=== PATIENT | male | born 1940 | race Caucasian/White ===

== ENCOUNTER → 2018-03-02 15:00 | Outpatient (CLI) | payer MEDICARE, SELFPAY ==
[2018-03-02 17:36] LABS: Hematocrit 40.7 % (40-54); Mean Corp Hgb Conc 34.4 g/gl (32-36); Mean Corpuscular Hgb 31.7 pg (27.0-32.0); Mean Corpuscular Volume 92.1 fL (80-94); Mean Platelet Vol. 9.1 fl (6.2-12.0); Platelet Count 231 K/mm3 (150-450); RBC Distribution Width CV 12.7 % (11.6-14.6); RBC Distribution Width SD 41.8 fl (35.1-43.9); Red Blood Count 4.42 M/mm3 (4.6-6.2); White Blood Count 7.5 K/mm3 (4.4-11.0)
[2018-03-02 17:39] LABS: Scan Indicated on CBC? Y/N NO
[2018-03-02 17:51] LABS: Erythrocyte Sedimentation Rate 3 mm/hr (0-20)
[2018-03-02 18:01] LABS: ALB/GLOB Ratio 1.4 RATIO (0.9-2.4); AST(SGOT) 30 U/L (15-37); Alanine Aminotransfer ALT/SGPT 37 U/L (16-61); Alkaline Phosphatase 84 U/L (45-117); Anion Gap 12 (5-15); BUN 13 mg/dL (7-18); BUN/Creat Ratio 11.6 RATIO (10-20); Calcium,Total 9.2 mg/dL (8.5-10.1); Chloride 106 mmol/L (98-107); Cholesterol 66 mg/dL (200); Creatinine, Serum 1.12 mg/dL (0.70-1.30); EST Glomerular Filtration Rate 68 mL/min (>60); Est Glom Filt Rate - Afr Amer 82 mL/min (>60); Globulin 2.9 g/dL (2.2-4.2); Glucose 87 mg/dL (74-106); High Density Lipoprotein 28 mg/dL; Potassium 3.9 mmol/L (3.5-5.1); Protein, Total 6.9 g/dL (6.4-8.2); Sodium Level 143 mmol/L (136-145); T4 Free Direct 1.44 ng/dL (0.76-1.46); Thyroid Stim Hormone (TSH) 0.05 uIU/mL (0.358-3.74); Triglycerides 55 mg/dL; Very Low Density Lipoprotein 11 mg/dL (5-40)
[2018-03-03 09:01] LABS: Vitamin B12 428 pg/mL (211-911); Vitamin D,25 Hydroxy 33.9 ng/mL (29.95-100.01)
== END ==
PROVIDERS: Family Provider Family Medicine; PCP Family Medicine; Visit Provider Family Medicine
DX: G45.9 Transient cerebral ischemic attack, unspecified (principal); M06.9 Rheumatoid arthritis, unspecified; E03.9 Hypothyroidism, unspecified
CPT/HCPCS: 36415; 80053; 80061; 82306; 82607; 84439; 84443; 85027; 85652

== ENCOUNTER → 2018-06-28 07:49 | Outpatient (CLI) | payer MEDICARE, SELFPAY ==
[2018-05-17 14:16] VITALS: BMI 32.0
--- NOTE | 2018-06-28 08:01 | CT_ITS ---
STUDY: CT BRAIN WITHOUT CONTRAST REASON FOR EXAM: Male, 77 years old. Episodes of confusion. RADIATION DOSAGE (If Supplied By Facility): CTDIvol = ( 60.81 ) mGy, DLP = ( 1044.28 ) mGycm TECHNIQUE: Transaxial CT imaging of the brain was performed without administration of intravenous contrast material. Individualized dose optimization techniques were used for this CT. COMPARISON: Comparison is made with prior examination dated May 20, 2017. FINDINGS: Normal soft tissue structures. Normal calvarium. There is mild cerebral atrophy with widening of the extra-axial spaces and ventricular dilatation. There are areas of decreased attenuation within the white matter tracts of the supratentorial brain, consistent with microvascular disease changes. Normal basal ganglia and thalami. Normal brainstem. Normal cerebellum. There is no intracranial hemorrhage. There are no findings of an acute ischemic infarction. Atherosclerotic calcification of the cavernous portions of the internal carotid arteries bilaterally. Opacification of the right maxillary sinus. CT/Brain/Head without Contrast IMPRESSION: Chronic involutional changes of the brain. Opacification of the right maxillary sinus. Electronically Signed: Caden Holm MD at 15:47 EST Tel [phone], Service support ,
--- OUTSIDE RECORDS SUMMARY | 2018-09-29 17:28 | XMS RPT_ITS ---
:1940 Author Organization [facility] Support Name Relationship Address Phone JULIA WADE Unavailable [address] + [place] [address] PICKLESIMER, MEAGHAN Unavailable [address] + [place] [address] R Unavailable Unavailable Unavailable JULIA WADE Unavailable [address] + [place] [address] PICKLESIMER, MEAGHAN Unavailable [address] + [place] [address] R Unavailable Unavailable Unavailable JULIA WADE Unavailable [address] + [place] [address] PICKLESIMER, MEAGHAN Unavailable [address] + [place] [address] R Unavailable Unavailable Unavailable JULIA WADE Unavailable [address] + [place] [address] PICKLESIMER, MEAGHAN Unavailable [address] + [place] [address] R Unavailable Unavailable Unavailable JULIA WADE Unavailable [address] + [place] [address] PICKLESIMER, MEAGHAN Unavailable [address] + [place] [address] R Unavailable Unavailable Unavailable JULIA WADE Unavailable [address] + [place] [address] PICKLESIMER, MEAGHAN Unavailable [address] + [place] [address] R Unavailable Unavailable Unavailable JULIA WADE Unavailable [address] + [place] [address] PICKLESIMER, MEAGHAN Unavailable [address] + [place] [address] R Unavailable Unavailable Unavailable JULIA WADE Unavailable [address] + [place] [address] GEORGIA BILLSOGENE Unavailable [address] + [place] [address] R Unavailable Unavailable Unavailable Care Team Providers Name Role Phone Kyra Iqbal MARKETING SALES MANAGER-C Attending Unavailable Rasheed, Kyra MARKETING SALES MANAGER-C Referring Unavailable Ranney, [facility] Unavailable RasheedKyra ventura MARKETING SALES MANAGER-C Attending Unavailable Rasheed, Kyra MARKETING SALES MANAGER-C Referring Unavailable Ranney, [facility] Unavailable Prah, Caleb Attending Unavailable Ranney, [facility] Unavailable Ranney, Christloulou Referring Unavailable Prah, Caleb Attending Unavailable Ron, Christloulou Referring Unavailable Ranflora, [facility] Unavailable Caleb Cole Consulting Unavailable Paulie Navarro Attending Unavailable Ranney, Christloulou Referring Unavailable Ranney, [facility] Unavailable Ron, Tyson Attending Unavailable Ranney, [facility] Unavailable Ranney, Tyson Attending Unavailable Ranney, [facility] Unavailable Praodilia, Caleb Attending Unavailable Ranflora, Christopher Referring Unavailable Ranney, [facility] Unavailable Praodilia, Caleb Consulting Unavailable PROBLEMS PROBLEMS DATE TYPE CONDITION / CODE ATTENDING STATUS SOURCE 05/25/2018 Unknown C85.80 - Other [place] Caleb Active [place] specified types [facility] lymphoma, Repository unspecified site / C85.80(ICD-10) 11/17/2017 Unknown C83.30 - [facility] [place] [facility]-cell [facility] lymphoma, Hospital unspecified site Repository / C83.30(ICD-10) 11/17/2017 Unknown C73 - Malignant [facility], Caleb Active [place] neoplasm of Community thyroid gland / Hospital C73(ICD-10) Repository PROCEDURES PROCEDURES No Procedure Records FoundRESULTS RESULTS ERYTHROCYTE SED RATE Collected: 06/29/2018 Status: F Source: [place] 11:29 AM [facility] REPOSITORY TYPE CODE TESTS RESULT OUT OF RANGE REFERENCE UNITS LAB L102.0000 0-20 mm/hr Normal SED RATE 8 Performed By: #### L101.9900, L100.0100, L500.4050, L501.1400, L501.9520, L506.0400, L506.1000 #### [facility] [place], [address] CBC W/DIFF, AUTOMATED Collected: 06/29/2018 Status: F Source: [place] 11:29 AM [facility] REPOSITORY TYPE CODE TESTS RESULT OUT OF RANGE REFERENCE UNITS LAB L100.1000 4.4-11.0 K/mm3 Normal WBC 8.5 LAB L100.1200 4.6-6.2 M/mm3 Low RBC 4.36 LAB L100.1300 13.0-16.5 g/dl Normal HGB 13.3 LAB L100.1400 40-54 % Low HCT 39.4 LAB L100.1500 80-94 fL Normal MCV 90.4 LAB L100.1600 27.0-32.0 pg Normal MCH 30.5 LAB L100.1700 32-36 g/gl Normal MCHC 33.8 LAB L100.1810 11.6-14.6 % Normal RDW CV 12.6 LAB L100.1820 35.1-43.9 fl Normal RDW SD 41.3 LAB L100.1900 150-450 K/mm3 Normal PLT 264 LAB L100.2000 6.2-12.0 fl Normal MPV 8.7 LAB L100.2100 47-70 % Normal NEUT% 69.7 LAB L100.2200 19-41 % Normal LY% 21.1 LAB L100.2300 0-10 % Normal MONO% 6.0 LAB L100.2400 0-5 % Normal EO% 2.7 LAB L100.2500 0-1 % Normal BASO% 0.4 LAB L100.2550 0.0-0.9 % Normal IM GRAN % 0.100 Result Comment: IG% - Immature Granulocytes (promyelocytes, myelocytes and metamyelocytes) > 1% indicates that a LEFT SHIFT is Present. LAB L100.2620 2.0-7.7 X10 3/uL Normal Absolute Neut 5.9 LAB L100.2720 0.83-4.51 X10 3/ul Normal Absolute Lymph 1.79 Performed By: #### L101.9900, L100.0100, L500.4050, L501.1400, L501.9520, L506.0400, L506.1000 #### [facility] [place], [address] COMPREHENSIVE METABOLIC Collected: 06/29/2018 Status: F Source: [place] 11:29 AM [facility] REPOSITORY TYPE CODE TESTS RESULT OUT OF RANGE REFERENCE UNITS LAB L501.0100 74-106 mg/dL Normal GLU 87 Result Comment: Please note revised GLUCOSE reference range effective 2017. LAB L501.1000 7-18 mg/dL Normal BUN 15 LAB L501.1100 0.70-1.30 mg/dL Normal CREAT,SERUM 1.14 Result Comment: The validity of the calculated GFR AND GFRAA in patients over 70 years has not been determined. Clinical correlation is essential. LAB L501.1110 >60 mL/min Normal EST GFR 66 Result Comment: Non- GFR Calc LAB L501.1115 >60 mL/min Normal EST GFR - AA 80 Result Comment: GFR Calc LAB L501.1300 10-20 RATIO Normal BUN/CRE 13.2 LAB L501.1500 6.4-8.2 g/dL T Normal PROT 6.8 LAB L501.1800 3.2-5.0 g/dL Normal ALB 3.6 LAB L501.1950 2.2-4.2 g/dL Normal GLOB 3.2 LAB L501.2000 0.9-2.4 RATIO Normal A/G 1.1 LAB L501.2200 8.5-10.1 mg/dL CA Normal 8.7 LAB L501.4100 15-37 U/L Normal AST 26 LAB L501.4305 45-117 U/L Normal ALK P 89 LAB L501.4405 16-61 U/L Normal ALT 29 LAB L501.4600 0.20-1.00 mg/dL T Normal BILI 0.60 LAB L501.5300 136-145 mmol/L NA Normal 139 LAB L501.5600 3.5-5.1 mmol/L K Normal 3.9 LAB L501.5900 98-107 mmol/L CL Normal 105 LAB L501.6100 21.0-32.0 mmol/L Normal CO2 24.0 LAB L501.6200 5-15 Normal GAP 10 Performed By: #### L101.9900, L100.0100, L500.4050, L501.1400, L501.9520, L506.0400, L506.1000 #### [facility] [address] [place], [address] URIC ACID Collected: 06/29/2018 Status: F Source: [place] 11:29 AM [facility] REPOSITORY TYPE CODE TESTS RESULT OUT OF RANGE REFERENCE UNITS LAB L501.1400 3.5-7.2 mg/dL Normal URIC 6.2 Result Comment: The drugs N-Acetylcysteine and Metamizole may falsely depress this assay. Performed By: #### L101.9900, L100.0100, L500.4050, L501.1400, L501.9520, L506.0400, L506.1000 #### [facility] [address] [place], [address] THYROID STIM HORMONE Collected: 06/29/2018 Status: F Source: [place] (TSH) 11:29 AM [facility] REPOSITORY TYPE CODE TESTS RESULT OUT OF RANGE REFERENCE UNITS LAB L501.9520 0.358-3.74 uIU/mL Low TSH 0.07 Performed By: #### L101.9900, L100.0100, L500.4050, L501.1400, L501.9520, L506.0400, L506.1000 #### [facility] [address] [place], [place], [id number] T4 FREE DIRECT Collected: 06/29/2018 Status: F Source: [place] 11:29 AM [facility] REPOSITORY TYPE CODE TESTS RESULT OUT OF RANGE REFERENCE UNITS LAB L506.0400 0.76-1.46 ng/dL Normal T4 FREE 1.37 DIRECT Performed By: #### L101.9900, L100.0100, L500.4050, L501.1400, L501.9520, L506.0400, L506.1000 #### [facility] [address] [place], [place], [id number] VITAMIN D,25 HYDROXY Collected: 06/29/2018 Status: F Source: [place] 11:29 AM [facility] REPOSITORY TYPE CODE TESTS RESULT OUT OF RANGE REFERENCE UNITS LAB L506.1000 29.95-100.01 ng/mL Normal Vitamin D 37.8 25-OH Result Comment: Vitamin D 25(OH) Status Range Deficiency <20 ng/mL (50nmol/L) Insuffciency 20 - 30 ng/mL (50 - 75 nmol/L) Sufficiency 30 - 100 ng/mL (75 - 250 nmol/L) Toxicity >100 ng/mL (>250 nmol/L) Performed By: #### L101.9900, L100.0100, L500.4050, L501.1400, L501.9520, L506.0400, L506.1000 #### [facility] [address] [place], [address] CRP Collected: 06/29/2018 Status: F Source: [place] 11:29 AM [facility] REPOSITORY TYPE CODE TESTS RESULT OUT OF RANGE REFERENCE UNITS LAB L501.6710 0.0-3.0 mg/L High 7.72 C-REACTIVE PROT Result Comment: C-Reactive Protein (CRP) provides useful information for the diagnosis, therapy and monitoring of inflammatory processes and associated diseases. For the evaluation of Relative Risk for Cardiovascular Disease, a High Sensitivity CRP (HSCRP) should be ordered. Performed By: #### L501.6710 #### [facility] [address] [place], [address] BRAIN/HEAD WITHOUT Observed: 06/28/2018 Status: F Source: [place] CONTRAST 8:01 AM [facility] REPOSITORY [facility] [address] [place] [address] Brain/Head without Contrast MR#: [id number] Acct: [id number] Name: DANIE BILLS Jose Rep #: [id number] : 1940 M 77 From: Caden Holm MD PCP: Tyson Velasquez MD Status: REG CLI Study: Brain/Head without Contrast Date of Exam: 06/28/18 Exam# [id number] Ordering Dr: Kyra Iqbal MARKETING SALES MANAGERZeenat STUDY: CT BRAIN WITHOUT CONTRAST REASON FOR EXAM: Male, 77 years old. Episodes of confusion. RADIATION DOSAGE (If Supplied By Facility): CTDIvol = ( 60.81 ) mGy, DLP = ( 1044.28 ) mGycm TECHNIQUE: Transaxial CT imaging of the brain was performed without administration of intravenous contrast material. Individualized dose optimization techniques were used for this CT. COMPARISON: Comparison is made with prior examination dated May 20, 2017. FINDINGS: Normal soft tissue structures. Normal calvarium. There is mild cerebral atrophy with widening of the extra- axial spaces and ventricular dilatation. There are areas of decreased attenuation within the white matter tracts of the supratentorial brain, consistent with microvascular disease changes. Normal basal ganglia and thalami. Normal brainstem. Normal cerebellum. There is no intracranial hemorrhage. There are no findings of an acute ischemic infarction. Atherosclerotic calcification of the cavernous portions of the internal carotid arteries bilaterally. Opacification of the right maxillary sinus. CT/Brain/Head without Contrast IMPRESSION: Chronic involutional changes of the brain. Opacification of the right maxillary sinus. Electronically Signed: Caden Holm MD at 15:47 EST Tel [phone], Service support , CC: TIMOTHY Iqbal; Tyson Velasquez MD Sports Anchor: Signed ONCOLOGY VISIT REPORT Observed: 05/17/2018 Status: F Source: [place] 1:29 PM [facility] REPOSITORY [facility] [address] [place], [place] [address]all [facility] [place] [address] OFFICE VISIT Date of Service: 05/17/18 1318 MR#: [id number] Acct: [id number] Name: DANIE BILLS Rep #: [id number] : 1940 From: Caleb Cole MD Age/Sex: 77/M Location: OMD Status: Signed Subjective - Date of Service Date of Service:: 05/17/18 - Chief Complaint Follow up- DLBCL and thryoid cancer - History of Present Illness Mr. 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 PET/CT revealed uptake within the thyroid. 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 He was treated with R-CHOP x 6 cycles with complete response. He underwent total thyroidectomy on 06/13/2015 for T2N0M0, stage II disease. Received 1 dose of radioactive iodine. He is on observation, comes in for follow up. He still has episodes of neurologic symptoms and work up by Neurologist is negative. - Past Medical/Social History Past Medical History Past Medical History: Arthritis,GERD,Heart disease,Hernia Other Past Medical History: Gout Degenerative Disc Disease Cancer: Lymphoma,Skin cancer Past Surgical History Surgical: Carpal tunnel,Cataract extraction, Cholecystectomy,Colonoscopy,Knee replacement, Thyroidectomy Other Surgical History: Tongue biopsy Skin cancer removed Hydrocolectomy Family History Paternal Past Medical History: Unknown Paternal History of Cancer Leukemia Maternal Past Medical History: Unknown Social History Social History: No changes Smoking Status Never smoker Review of Systems Constitutional:: Denies: Fever, Sweats, Weight loss, Appetite change, Chills Cardiovascular:: Denies: Chest pain, Palpitations, Dyspnea on exertion, Orthopnea, PND, Shortness of breath Respiratory: Denies: Cough, Hemoptysis, Shortness of Breath, Wheezing Gastrointestinal:: Denies: Abdominal pain, Nausea, Vomiting, Diarrhea, Constipation, Hematochezia Genitourinary: Denies: Dysuria, Hematuria, 15, Flank pain Musculoskeletal:: Denies: Back pain, Myalgia, Arthralgia Skin: Denies: Rash, Skin Changes, Wounds Neurological:: Denies: Headache, Dizziness, Visual changes, Tinnitus, Hearing loss Psychiatric: Denies: Anxiety, Depression, Homicidal Ideations, Suicidal Ideations Vital Signs Height 5 ft 10 in Weight: 105.233 kg Weight in Pounds 232.0 lbs Pulse Ox 97 - Physical Exam General: Alert, Oriented x3, No apparent distress HEENT: Atraumatic, PERRLA, EOMI, Normocephalic Oropharynx:: Dry mucosa Neck:: Supple, Trachea midline. Negative for: JVD, bilateral Cardiac:: Regular rate, Regular rhythm, Normal S1, Normal S2. Negative for: Murmur Lungs: Clear to auscultation, Excusion symmetrical. Negative for: Rhonchi, Wheezes Abdomen:: Bowel sounds x 4, Soft, Non-tender, Non-distended. Negative for: Hepatosplenomegaly Extremities:: Negative for: Cyanosis, Edema Neurological: Neuro grossly intact Skin:: Negative for: Lesions, Rash, Petechiae, Ecchymosis Psychiatric:: Appropriate affect, Euthymic Lymphatics:: Negative for: Cervical lymphadenopathy, Supraclavicular lymphadenopathy, Axillary lymphadenopathy Laboratory Data: Laboratory Tests WBC 8.1 Hgb 14.7 Hct 43.8 Plt Count 220 TSH 0.12 L Laboratory Tests WBC 8.1 Hgb 14.7 Hct 43.8 Plt Count 220 TSH Free T4 1.44 Thyroglobulin 0.1 L 0.1 WBC Hgb Hct Plt Count TSH 0.12 L Free T4 Thyroglobulin Assessment and Plan NHL-no evidence of disease clinically. Thyroid Cancer-no evidence of disease clinically. Plan is to continue observation for cancer/NHL. RTC 12 months with CBC/CMP/LDH. Medications: Prescriptions This Visit Medication Instructions Recorded Sildenafil Citrate [Sildenafil] 20 mg PO PRN PRN 10/03/16 Aspirin [Aspirin EC] 81 mg PO DAILY 11/07/16 Levothyroxine [Synthroid] 137 mcg PO DAILY 11/11/16 Primary Care Provider: Tyson Velasquez Referring Provider: - Problem List (1) Diffuse large B cell lymphoma Status: Resolved Qualifiers: Lymphoma site: unspecified region Qualified Code(s): C83.30 - Diffuse large B-cell lymphoma, unspecified site (2) Thyroid cancer Status: Resolved (3) History of thyroid cancer Status: Chronic (4) History of non-Hodgkin's lymphoma Status: Chronic 05/17/18 1329 <Electronically signed by Caleb Cole MD> Date Caleb Cole MD Cosigner Signature: Date (if applicable) CC: CBC W/DIFF, AUTOMATED Collected: 05/10/2018 Status: F Source: [place] 11:09 AM [facility] REPOSITORY Order Comment: Reason for Laboratory Test . TYPE CODE TESTS RESULT OUT OF RANGE REFERENCE UNITS LAB L100.1000 4.4-11.0 K/mm3 Normal WBC 8.1 LAB L100.1200 4.6-6.2 M/mm3 Normal RBC 4.78 LAB L100.1300 13.0-16.5 g/dl Normal HGB 14.7 LAB L100.1400 40-54 % Normal HCT 43.8 LAB L100.1500 80-94 fL Normal MCV 91.6 LAB L100.1600 27.0-32.0 pg Normal MCH 30.8 LAB L100.1700 32-36 g/gl Normal MCHC 33.6 LAB L100.1810 11.6-14.6 % Normal RDW CV 12.9 LAB L100.1820 35.1-43.9 fl Normal RDW SD 43.2 LAB L100.1900 150-450 K/mm3 Normal PLT 220 LAB L100.2000 6.2-12.0 fl Normal MPV 8.4 LAB L100.2100 47-70 % Normal NEUT% 62.4 LAB L100.2200 19-41 % Normal LY% 26.7 LAB L100.2300 0-10 % Normal MONO% 7.1 LAB L100.2400 0-5 % Normal EO% 3.3 LAB L100.2500 0-1 % Normal BASO% 0.4 LAB L100.2550 0.0-0.9 % Normal IM GRAN % 0.100 Result Comment: IG% - Immature Granulocytes (promyelocytes, myelocytes and metamyelocytes) > 1% indicates that a LEFT SHIFT is Present. LAB L100.2620 2.0-7.7 X10 3/uL Normal Absolute Neut 5.1 LAB L100.2720 0.83-4.51 X10 3/ul Normal Absolute Lymph 2.17 Performed By: #### L100.0100 #### [facility] [place], [address] COMPREHENSIVE METABOLIC Collected: 05/10/2018 Status: F Source: [place] 11:09 AM [facility] REPOSITORY Order Comment: Reason for Laboratory Test . Comments: [id number] Thyroglobulin, Comprehensive (With Anti Serial Specimen #1, #2 or #3? 1 TYPE CODE TESTS RESULT OUT OF RANGE REFERENCE UNITS LAB L501.0100 74-106 mg/dL Normal GLU 93 Result Comment: Please note revised GLUCOSE reference range effective 2017. LAB L501.1000 7-18 mg/dL High BUN 20 LAB L501.1100 0.70-1.30 mg/dL Normal CREAT,SERUM 1.28 Result Comment: The validity of the calculated GFR AND GFRAA in patients over 70 years has not been determined. Clinical correlation is essential. LAB L501.1110 >60 mL/min Low EST GFR 58 Result Comment: Non- GFR Calc LAB L501.1115 >60 mL/min Normal EST GFR - AA 70 Result Comment: GFR Calc LAB L501.1255 ml/min Normal Estimated CRCL 49.90 LAB L501.1300 10-20 RATIO Normal BUN/CRE 15.6 LAB L501.1500 6.4-8. g/dL Normal 2 T PROT 7.1 LAB L501.1800 3.2-5. g/dL Normal 0 ALB 3.9 LAB L501.1950 2.2-4. g/dL Normal 2 GLOB 3.2 LAB L501.2000 0.9-2. RATIO Normal 4 A/G 1.2 LAB L501.2200 8.5-10 mg/dL Normal .1 CA 8.8 LAB L501.4100 15-37 U/L Normal AST 21 LAB L501.4305 45-117 U/L Normal ALK P 91 LAB L501.4405 16-61 U/L Normal ALT 31 LAB L501.4600 0.20-1 mg/dL Normal .00 T BILI 0.90 LAB L501.5300 136-14 mmol/L Normal 5 NA 138 LAB L501.5600 3.5-5. mmol/L Normal 1 K 4.1 LAB L501.5900 98-107 mmol/L Normal CL 105 LAB L501.6100 21.0-3 mmol/L Normal 2.0 CO2 28.0 LAB L501.6200 5-15 Normal GAP 5 Performed By: #### L500.4050, L501.9520, L504.2610 #### [facility] [address] [place], [address] THYROID STIM HORMONE Collected: 05/10/2018 Status: F Source: [place] (TSH) 11:09 AM [facility] REPOSITORY Order Comment: Reason for Laboratory Test . Comments: [id number] Thyroglobulin, Comprehensive (With Anti Serial Specimen #1, #2 or #3? 1 TYPE CODE TESTS RESULT OUT OF RANGE REFERENCE UNITS LAB L501.9520 0.358-3.74 uIU/mL Low TSH 0.12 Performed By: #### L500.4050, L501.9520, L504.2610 #### [facility] [address] [place], [address] LDH Collected: 05/10/2018 Status: F Source: [place] 11:09 AM [facility] REPOSITORY Order Comment: Reason for Laboratory Test . Comments: [id number] Thyroglobulin, Comprehensive (With Anti Serial Specimen #1, #2 or #3? 1 TYPE CODE TESTS RESULT OUT OF RANGE REFERENCE UNITS LAB L504.2610 87-241 U/L Normal LDH 197 Performed By: #### L500.4050, L501.9520, L504.2610 #### [facility] [address] [place], [address] MISCELLANEOUS LAB Collected: 05/10/2018 Status: F Source: [place] PROCEDURE 11:09 AM [facility] REPOSITORY Order Comment: Reason for Laboratory Test LC# [id number] THYROGOBULIN COMPREHENSIVE Comments: [id number] Thyroglobulin, Comprehensive (With Anti Test(s) Ordered: [id number] Thyroglobulin, Comprehensive (With Anti TYPE CODE TESTS RESULT OUT OF RANGE REFERENCE UNITS LAB L801.1541 Normal [facility] LAB TEST Result Comment: TEST RESULT LIMITS Comprehensive Thyroglobulin Anti-Thyroglobulin Antibodies <1.0 IU/mL Reference Range: <1.0 Negative > or = 1.0 Positive Thyroglobulin (ICMA) <0.1 ng/mL Reference Range: >17y: 1.4 - 29.2 According to the National Academy of Clinical Biochemistry, the reference interval for Thyroglobulin (TG) should be related to euthyroid patients and not for patients who underwent thyroidectomy. TG reference intervals for these patients depend on the residual mass of the thyroid tissue left after surgery. Establishing a post-operative baseline is recommended. The assay quantitation limit is 0.1 ng/mL. Thyroglobulin (TG-BENJAMIN) ng/mL Not applicable TESTING PERFORMED AT [facility]. ORIGINAL REPORT ON FILE IN LAB CONTAINS ADDITIONAL TEST SITE INFORMATION. Performed By: #### L801.1541 #### [facility] [address] [place], [address] CBC-COMPLETE BLOOD CNT Collected: 03/02/2018 Status: F Source: [place] NO DIFF 3:04 PM [facility] REPOSITORY Order Comment: Order Date: 11/25/17 Order Info: [id number] - CBC Order Info: [id number] - SED TYPE CODE TESTS RESULT OUT OF RANGE REFERENCE UNITS LAB L100.1000 4.4-11.0 K/mm3 Normal WBC 7.5 LAB L100.1200 4.6-6.2 M/mm3 Low RBC 4.42 LAB L100.1300 13.0-16.5 g/dl Normal HGB 14.0 LAB L100.1400 40-54 % Normal HCT 40.7 LAB L100.1500 80-94 fL Normal MCV 92.1 LAB L100.1600 27.0-32.0 pg Normal MCH 31.7 LAB L100.1700 32-36 g/gl Normal MCHC 34.4 LAB L100.1810 11.6-14.6 % Normal RDW CV 12.7 LAB L100.1820 35.1-43.9 fl Normal RDW SD 41.8 LAB L100.1900 150-450 K/mm3 Normal PLT 231 LAB L100.2000 6.2-12.0 fl Normal MPV 9.1 Performed By: #### L100.0500, L101.9900, L500.4050, L501.9520, L506.0400, L503.0105, L506.1000 #### [facility] [address] [place], [place], [address] ERYTHROCYTE SED RATE Collected: 03/02/2018 Status: F Source: [place] 3:04 PM [facility] REPOSITORY Order Comment: Order Date: 11/25/17 Order Info: [id number] - CBC Order Info: [id number] - SED TYPE CODE TESTS RESULT OUT OF RANGE REFERENCE UNITS LAB L102.0000 0-20 mm/hr Normal SED RATE 3 Performed By: #### L100.0500, L101.9900, L500.4050, L501.9520, L506.0400, L503.0105, L506.1000 #### [facility] [address] [facility] [place], [place], [address] COMPREHENSIVE METABOLIC Collected: 03/02/2018 Status: F [facility] RE[facility] Order Comment: Order Date: 11/25/17 Order Info: [id number] - CMP Order Info: [id number] - LIPID Order Info: [id number] - TSH Order Info: 3024-7 - T4F TYPE CODE TESTS RESULT OUT OF RANGE REFERENCE UNITS LAB L501.0100 74-106 mg/dL Normal GLU 87 Result Comment: Please note revised GLUCOSE reference range effective 2017. LAB L501.1000 7-18 mg/dL Normal BUN 13 LAB L501.1100 0.70-1.30 mg/dL Normal CREAT,SERUM 1.12 Result Comment: The validity of the calculated GFR AND GFRAA in patients over 70 years has not been determined. Clinical correlation is essential. LAB L501.1110 >60 mL/min Normal EST GFR 68 Result Comment: Non- GFR Calc LAB L501.1115 >60 mL/min Normal EST GFR - AA 82 Result Comment: GFR Calc LAB L501.1300 10-20 RATIO Normal BUN/CRE 11.6 LAB L501.1500 6.4-8.2 g/dL T Normal PROT 6.9 LAB L501.1800 3.2-5.0 g/dL Normal ALB 4.0 LAB L501.1950 2.2-4.2 g/dL Normal GLOB 2.9 LAB L501.2000 0.9-2.4 RATIO Normal A/G 1.4 LAB L501.2200 8.5-10.1 mg/dL CA Normal 9.2 LAB L501.4100 15-37 U/L Normal AST 30 LAB L501.4305 45-117 U/L Normal ALK P 84 LAB L501.4405 16-61 U/L Normal ALT 37 LAB L501.4600 0.20-1.00 mg/dL T Normal BILI 0.60 LAB L501.5300 136-145 mmol/L NA Normal 143 LAB L501.5600 3.5-5.1 mmol/L K Normal 3.9 LAB L501.5900 98-107 mmol/L CL Normal 106 LAB L501.6100 21.0-32.0 mmol/L Normal CO2 25.0 LAB L501.6200 5-15 Normal GAP 12 Performed By: #### L100.0500, L101.9900, L500.4050, L501.9520, L506.0400, L503.0105, L506.1000 #### [facility] [address] [facility] [place], [place], [id number] THYROID STIM HORMONE Collected: 03/02/2018 Status: F Source: [place] (TSH) 3:04 PM [facility] REPOSITORY Order Comment: Order Date: 11/25/17 Order Info: [id number] - CMP Order Info: [id number] - LIPID Order Info: [id number] - TSH Order Info: 3024-7 - T4F TYPE CODE TESTS RESULT OUT OF RANGE REFERENCE UNITS LAB L501.9520 0.358-3.74 uIU/mL Low TSH 0.05 Performed By: #### L100.0500, L101.9900, L500.4050, L501.9520, L506.0400, L503.0105, L506.1000 #### [facility] [address] [facility] [place], [place], [address] T4 FREE DIRECT Collected: 03/02/2018 Status: F Source: SEAN 3:04 PM [facility] REPOSITORY Order Comment: Order Date: 11/25/17 Order Info: 0786-1 - CMP Order Info: [id number] - LIPID Order Info: 3016-3 - TSH Order Info: 3024-7 - T4F TYPE CODE TESTS RESULT OUT OF RANGE REFERENCE UNITS LAB L506.0400 0.76-1.46 ng/dL Normal T4 FREE 1.44 DIRECT Performed By: #### L100.0500, L101.9900, L500.4050, L501.9520, L506.0400, L503.0105, L506.1000 #### [facility] [address] [place], [place], [address] VITAMIN B12 Collected: 03/02/2018 Status: F Source: SEAN 3:04 PM [facility] REPOSITORY Order Comment: Order Date: 11/25/17 Order Info: 2132-9 - B12 Order Info: 11737-0 - VITD25 TYPE CODE TESTS RESULT OUT OF RANGE REFERENCE UNITS LAB L503.0105 211-911 pg/mL Normal Vitamin B12 428 Performed By: #### L100.0500, L101.9900, L500.4050, L501.9520, L506.0400, L503.0105, L506.1000 #### [facility] [address] [place], [address] VITAMIN D,25 HYDROXY Collected: 03/02/2018 Status: F Source: SEAN 3:04 PM [facility] REPOSITORY Order Comment: Order Date: 11/25/17 Order Info: 2132-9 - B12 Order Info: 95671-5 - VITD25 TYPE CODE TESTS RESULT OUT OF RANGE REFERENCE UNITS LAB L506.1000 29.95-100.01 ng/mL Normal Vitamin D 33.9 25-OH Result Comment: Vitamin D 25(OH) Status Range Deficiency <20 ng/mL (50nmol/L) Insuffciency 20 - 30 ng/mL (50 - 75 nmol/L) Sufficiency 30 - 100 ng/mL (75 - 250 nmol/L) Toxicity >100 ng/mL (>250 nmol/L) Performed By: #### L100.0500, L101.9900, L500.4050, L501.9520, L506.0400, L503.0105, L506.1000 #### [facility] [address] [place], [address] LIPID PROFILE Collected: 03/02/2018 Status: F Source: GEORGE 3:04 PM [facility] REPOSITORY Order Comment: Order Date: 11/25/17 Order Info: 0786-1 - CMP Order Info: 50793-2 - LIPID Order Info: 3016-3 - TSH Order Info: 3024-7 - T4F TYPE CODE TESTS RESULT OUT OF RANGE REFERENCE UNITS LAB L501.4900 200 mg/dL Normal CHOL 66 Result Comment: <200 mg/dL Desirable 200-240 mg/dL Borderline >240 mg/dL High Risk LAB L501.5000 mg/dL Normal TRIG 55 Result Comment: The drugs N-Acetylcysteine and Metamizole may falsely depress this assay. Serum Triglycerides Reference Interval Normal <150 mg/dL Borderline high 150 - 199 mg/dL High 200 - 499 mg/dL Very High > or = 500 mg/dL LAB L501.6400 mg/dL Low HDL 28 Result Comment: The drugs N-Acetylcysteine and Metamizole may falsely depress this assay. Reference Range HDL <40 mg/dL Low HDL Cholesterol HDL >or= 60 mg/dL High HDL Cholesterol LAB L501.6500 0-130 mg/dL Normal LDL 27 LAB L501.6600 5-40 mg/dL Normal VLDL 11 Performed By: #### L500.4100 #### [facility] [address] [place], [address] ONCOLOGY VISIT REPORT Observed: 11/17/2017 Status: F Source: GEORGE 3:16 PM [facility] REPOSITORY [facility] [address] [place] [address] OFFICE VISIT Date of Service: 11/16/17 1351 MR#: [id number] Acct: [id number] Name: DANIE BILLS Rep #: [id number] : 1940 From: Caleb Cole MD Age/Sex: 77/M Location: OMD Status: Signed Subjective - Date of Service Date of Service:: 11/16/17 - Chief Complaint Follow up- DLBCL and thryoid cancer - History of Present Illness Mr. 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 PET/CT revealed uptake within the thyroid. 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 He was treated with R-CHOP x 6 cycles with complete response. He underwent total thyroidectomy on 06/13/2015 for T2N0M0, stage II disease. Received 1 dose of radioactive iodine. He is on observation, comes in for follow up. He has had episodes of neurologic symptoms and undergoing work up by Neurologist. - Past Medical/Social History Past Medical History Past Medical History: Arthritis,GERD,Heart disease,Hernia Other Past Medical History: Gout Degenerative Disc Disease Cancer: Lymphoma,Skin cancer Past Surgical History Surgical: Carpal tunnel,Cataract extraction, Cholecystectomy,Colonoscopy,Knee replacement, Thyroidectomy Other Surgical History: Tongue biopsy Skin cancer removed Hydrocolectomy Family History Paternal Past Medical History: Unknown Paternal History of Cancer Leukemia Maternal Past Medical History: Unknown Social History Social History: No changes Smoking Status Never smoker Review of Systems Constitutional:: Denies: Fever, Sweats, Weight loss, Appetite change, Chills Cardiovascular:: Denies: Chest pain, Palpitations, Dyspnea on exertion, Orthopnea, PND, Shortness of breath Respiratory: Denies: Cough, Hemoptysis, Shortness of Breath, Wheezing Gastrointestinal:: Denies: Abdominal pain, Nausea, Vomiting, Diarrhea, Constipation, Hematochezia Genitourinary: Denies: Dysuria, Hematuria, 15, Flank pain Musculoskeletal:: Denies: Back pain, Myalgia, Arthralgia Skin: Denies: Rash, Skin Changes, Wounds Neurological:: Reports: - - episodes of confusion/loss of speech/concentration. Psychiatric: Denies: Anxiety, Depression, Homicidal Ideations, Suicidal Ideations Vital Signs Height 5 ft 10 in Weight: 105.233 kg Weight in Pounds 232.0 lbs Pulse Ox 97 - Physical Exam General: Alert, Oriented x3, No apparent distress HEENT: Atraumatic, PERRLA, EOMI, Normocephalic Oropharynx:: Dry mucosa Neck:: Supple, Trachea midline. Negative for: JVD, bilateral Cardiac:: Regular rate, Regular rhythm, Normal S1, Normal S2. Negative for: Murmur Lungs: Clear to auscultation, Excusion symmetrical. Negative for: Rhonchi, Wheezes Abdomen:: Bowel sounds x 4, Soft, Non-tender, Non-distended. Negative for: Hepatosplenomegaly Extremities:: Negative for: Cyanosis, Edema Neurological: Neuro grossly intact Skin:: Negative for: Lesions, Rash, Petechiae, Ecchymosis Psychiatric:: Appropriate affect, Euthymic Lymphatics:: Negative for: Cervical lymphadenopathy, Supraclavicular lymphadenopathy, Axillary lymphadenopathy Laboratory Data: 11/13/2017 CBC/CMP/LDH REVIEWED, NORMAL Assessment and Plan NHL-no evidence of disease clinically. Thyroid Cancer-no evidence of disease clinically. Episode of confusion/absence. Plan is to continue observation for cancer/NHL. F/U with Neurologist for work of episodes of confusion. RTC 6 months with CBC/CMP/LDH. Medications: Prescriptions This Visit Medication Instructions Recorded Sildenafil Citrate [Sildenafil] 20 mg PO PRN PRN 10/03/16 Aspirin [Aspirin EC] 81 mg PO DAILY 11/07/16 Levothyroxine [Synthroid] 137 mcg PO DAILY 11/11/16 Primary Care Provider: Tyson Velasquez Referring Provider: - Problem List (1) Diffuse large B cell lymphoma Status: Resolved Qualifiers: Lymphoma site: unspecified region Qualified Code(s): C83.30 - Diffuse large B-cell lymphoma, unspecified site (2) Thyroid cancer Status: Resolved (3) History of thyroid cancer Status: Chronic (4) History of non-Hodgkin's lymphoma Status: Chronic Code Visit Office Visits / Consults: 19597 OV L3 Est 11/17/17 1516 <Electronically signed by Caleb Cole MD> Date Calbe Cole MD Cosigner Signature: Date (if applicable) CC: CBC W/DIFF, AUTOMATED Collected: 11/13/2017 Status: F Source: SEAN 10:29 AM [facility] REPOSITORY Order Comment: Reason for Laboratory Test . TYPE CODE TESTS RESULT OUT OF RANGE REFERENCE UNITS LAB L100.1000 4.4-11.0 K/mm3 Normal WBC 7.9 LAB L100.1200 4.6-6.2 M/mm3 Normal RBC 4.75 LAB L100.1300 13.0-16.5 g/dl Normal HGB 15.0 LAB L100.1400 40-54 % Normal HCT 42.5 LAB L100.1500 80-94 fL Normal MCV 89.5 LAB L100.1600 27.0-32.0 pg Normal MCH 31.6 LAB L100.1700 32-36 g/gl Normal MCHC 35.3 LAB L100.1810 11.6-14.6 % Normal RDW CV 12.9 LAB L100.1820 35.1-43.9 fl Normal RDW SD 42.0 LAB L100.1900 150-450 K/mm3 Normal PLT 256 LAB L100.2000 6.2-12.0 fl Normal MPV 9.0 LAB L100.2100 47-70 % Normal NEUT% 63.0 LAB L100.2200 19-41 % Normal LY% 24.4 LAB L100.2300 0-10 % Normal MONO% 8.7 LAB L100.2400 0-5 % Normal EO% 3.3 LAB L100.2500 0-1 % Normal BASO% 0.5 LAB L100.2550 0.0-0.9 % Normal IM GRAN % 0.100 Result Comment: IG% - Immature Granulocytes (promyelocytes, myelocytes and metamyelocytes) > 1% indicates that a LEFT SHIFT is Present. LAB L100.2620 2.0-7.7 X10 3/uL Normal Absolute Neut 5.0 LAB L100.2720 0.83-4.51 X10 3/ul Normal Absolute Lymph 1.94 Performed By: #### L100.0100, L500.4050, L504.2610 #### [facility] [address] [place], [address] COMPREHENSIVE METABOLIC Collected: 11/13/2017 Status: F Source: SEAN DARDEN 10:29 AM [facility] REPOSITORY Order Comment: Reason for Laboratory Test . Serial Specimen #1, #2 or #3? 1 TYPE CODE TESTS RESULT OUT OF RANGE REFERENCE UNITS LAB L501.0100 74-106 mg/dL Normal GLU 99 Result Comment: Please note revised GLUCOSE reference range effective 2017. LAB L501.1000 7-18 mg/dL Normal BUN 13 LAB L501.1100 0.70-1.30 mg/dL Normal CREAT,SERUM 1.14 Result Comment: The validity of the calculated GFR AND GFRAA in patients over 70 years has not been determined. Clinical correlation is essential. LAB L501.1110 >60 mL/min Normal EST GFR 66 Result Comment: Non- GFR Calc LAB L501.1115 >60 mL/min Normal EST GFR - AA 80 Result Comment: GFR Calc LAB L501.1255 ml/min Normal Estimated CRCL 56.03 LAB L501.1300 10-20 RATIO Normal BUN/CRE 11.4 LAB L501.1500 6.4-8. g/dL Normal 2 T PROT 6.8 LAB L501.1800 3.2-5. g/dL Normal 0 ALB 4.2 LAB L501.1950 2.2-4. g/dL Normal 2 GLOB 2.6 LAB L501.2000 0.9-2. RATIO Normal 4 A/G 1.6 LAB L501.2200 8.5-10 mg/dL Normal .1 CA 9.0 LAB L501.4100 15-37 U/L Normal AST 26 LAB L501.4305 45-117 U/L Normal ALK P 85 LAB L501.4405 16-61 U/L Normal ALT 36 LAB L501.4600 0.20-1 mg/dL Normal .00 T BILI 0.80 LAB L501.5300 136-14 mmol/L Normal 5 NA 138 LAB L501.5600 3.5-5. mmol/L Normal 1 K 3.7 LAB L501.5900 98-107 mmol/L Normal CL 106 LAB L501.6100 21.0-3 mmol/L Normal 2.0 CO2 24.0 LAB L501.6200 5-15 Normal GAP 8 Performed By: #### L100.0100, L500.4050, L504.2610 #### [facility] [address] [place], [address] LDH Collected: 11/13/2017 Status: F Source: SEAN 10:29 AM [facility] REPOSITORY Order Comment: Reason for Laboratory Test . Serial Specimen #1, #2 or #3? 1 TYPE CODE TESTS RESULT OUT OF RANGE REFERENCE UNITS LAB L504.2610 87-241 U/L Normal LDH 195 Performed By: #### L100.0100, L500.4050, L504.2610 #### [facility] [address] [place], [address] ALLERGIES ALLERGIES DATE TYPE / CODE NAME / CODE REACTION SEVERITY SOURCE 05/17/2018 Drug Iodinated Rash [place] [facility] Allergy/416 [facility] 891652(SNOM and IV Repository ED CT) Dye/[id number](R XNORM) ENCOUNTERS ENCOUNTERS ADMIT/DISCHARGE ACCOUNT ADMITTING ENCOUNTER LOCATION SOURCE NUMBER CLASS 06/29/2018 [id number] Ambulatory Sean Sean 8 [facility] ing:MFPLAB Repository 06/28/2018 [id number] [facility] ing:[facility] Repository 06/28/2018 [id number] Ambulatory [facility] 2 [facility] ing:CT Repository 05/17/2018 [id number] Ambulatory BMSBuilding:B [place] 9 MS.[facility] Repository 05/17/2018 [id number] [facility] ing:OMD Repository 03/02/2018 [id number] Ambulatory Sean [place] 9 [facility] ing:MFPLAB Repository 12/21/2017/ [id number] Ambulatory BMSBuilding:B Sean 8 7 MS.[facility] Repository 11/16/2017 [id number] Ambulatory BMSBuilding:B [place] 4 MS.CF.[facility] Repository PAYERS PAYERS ENCOUNTER GUARANTOR PAYER SUBSCRIBER SOURCE 06/29/2018 DANIE Garcia Primary DANIE [id number] Insurance:SHANNAN SYLVESTERB: [id number]: Repository [id number]: 330 [id number] [phone] (HP) Date:4962-90-03Eg [address] [address]AG: 06/29/2018 Secondary NOT GIVENUNK Sean Insurance:SELF PAY [facility] Number: Effective Repository Date:2018-06-29 06/28/2018 DANIE C Primary NOT GIVENUNK Sean [id number] Insurance:SELF PAY [place] Number: Effective Repository [id number]: 330) Date:2018-06-21 [phone] (HP) 06/28/2018 DANIE C Primary DANIE C Sean [id number] Insurance:SHANNAN PICKLESIMERDOB: [facility] [id number] Servicesicy Number: Repository [id number]: 330 [id number] [phone] () Date:6551-26-19Tr [address], [place] [address]AC: 06/28/2018 Secondary NOT GIVENUNK [place] Insurance:SELF PAY [facility] Number: Effective Repository Date:2018-06-21 05/17/2018 DANIE C Primary DANIE C Sean [id number] Insurance:SHANNAN PICKLESIMERDOB: [facility] [id number] Health Number: Repository [id number]: 330 [id number] [phone] (HP) Date:6905-37-25[address], [place] [address]TU: 05/17/2018 Secondary NOT GIVENUNK [place] Insurance:SELF PAY [facility] Number: Effective Repository Date:2018-05-17 05/17/2018 DANIE C Primary DANIE C Sean [id number] Insurance:SHANNAN PICKLESIMERDOB: [facility] [id number] Regional Health Servicesicy Number: Repository [id number]: 330 [id number] [phone] (HP) Date:9707-47-95Wt [address] [place] [phone]: 05/17/2018 Secondary NOT GIVENUNK Sean Insurance:SELF PAY [facility] Number: Effective Repository Date:2016-10-01 03/02/2018 DANIE C Primary DANIE C [place] [id number] Insurance:SHANNAN PICKLESIMERDOB: [facility] [id number] Health Number: Repository [id number]: 330 [id number] [phone] (HP) Date:8427-09-30Nw [address], [place] [address]KI: 03/02/2018 Secondary NOT GIVENUNK [place] Insurance:SELF PAY [facility] Number: Effective Repository Date:2018-03-02 12/21/2017 DANIE C Primary DANIE C [place] [id number] Insurance:SHANNAN PICKLESIMERDOB: [facility] [id number] Health Number: Repository [id number]: 330 [id number] [phone] (HP) Date:1939-91-53Uy [address] [place] [phone]: 12/21/2017 Secondary NOT GIVENUNK Sean Insurance:SELF PAY [facility] Number: Effective Repository Date:2017-07-02 11/16/2017 Danie C Primary Danie C Sean [id number] Insurance:SHANNAN PicklesimerDOB: [facility] [id number] Hospital Number: Repository [id number]: 330 [id number] [phone] (HP) Date:1081-16-17Dr [address] [address]WW: 11/16/2017 Secondary NOT GIVENUNK Sean [facility] Effective Repository Date:2017-11-16
== END ==
PROVIDERS: Family Provider Family Medicine; PCP Family Medicine; Referring Provider Nurse Practitioner Acute Care; Visit Provider Nurse Practitioner Acute Care
DX: R41.0 Disorientation, unspecified (principal); R56.9 Unspecified convulsions
CPT/HCPCS: 70450

== ENCOUNTER → 2018-06-29 11:27 | Outpatient (CLI) | payer MEDICARE, SELFPAY ==
[2018-05-17 14:16] VITALS: BMI 32.0
[2018-06-29 14:54] LABS: Erythrocyte Sedimentation Rate 8 mm/hr (0-20)
[2018-06-29 14:56] LABS: Absolute Lymphocyte Count 1.79 X10^3/ul (0.83-4.51); Absolute Neutrophil Count 5.9 X10^3/uL (2.0-7.7); Basophil# 0.03 X10^3/uL; Basophil% 0.4 % (0-1); Eosinophil# 0.23 X10^3/uL; Eosinophils% 2.7 % (0-5); Hematocrit 39.4 % (40-54); Hemoglobin 13.3 g/dl (13.0-16.5); Lymphocyte # 1.79 X10^3/ul (4.0); Lymphocyte % 21.1 % (19-41); Mean Corp Hgb Conc 33.8 g/gl (32-36); Mean Corpuscular Hgb 30.5 pg (27.0-32.0); Mean Corpuscular Volume 90.4 fL (80-94); Mean Platelet Vol. 8.7 fl (6.2-12.0); Monocyte# 0.51 X10^3/uL; Neutrophil # 5.93 X10^3/uL (2.7-7.7); Neutrophil % 69.7 % (47-70); Platelet Count 264 K/mm3 (150-450); RBC Distribution Width CV 12.6 % (11.6-14.6); RBC Distribution Width SD 41.3 fl (35.1-43.9); Red Blood Count 4.36 M/mm3 (4.6-6.2); White Blood Count 8.5 K/mm3 (4.4-11.0)
[2018-06-29 14:59] LABS: POSITIVE COUNT NO; POSITIVE DIFFERENTIAL NO; POSITIVE MORPHOLOGY NO
[2018-06-29 15:08] LABS: ALB/GLOB Ratio 1.1 RATIO (0.9-2.4); AST(SGOT) 26 U/L (15-37); Alanine Aminotransfer ALT/SGPT 29 U/L (16-61); Albumin, Serum 3.6 g/dL (3.2-5.0); Alkaline Phosphatase 89 U/L (45-117); Anion Gap 10 (5-15); BUN 15 mg/dL (7-18); BUN/Creat Ratio 13.2 RATIO (10-20); CRP 7.72 mg/L (0.0-3.0); Calcium,Total 8.7 mg/dL (8.5-10.1); Chloride 105 mmol/L (98-107); Creatinine, Serum 1.14 mg/dL (0.70-1.30); EST Glomerular Filtration Rate 66 mL/min (>60); Est Glom Filt Rate - Afr Amer 80 mL/min (>60); Globulin 3.2 g/dL (2.2-4.2); Glucose 87 mg/dL (74-106); Potassium 3.9 mmol/L (3.5-5.1); Protein, Total 6.8 g/dL (6.4-8.2); Sodium Level 139 mmol/L (136-145); T4 Free Direct 1.37 ng/dL (0.76-1.46); Thyroid Stim Hormone (TSH) 0.07 uIU/mL (0.358-3.74); Uric Acid 6.2 mg/dL (3.5-7.2); Vitamin D,25 Hydroxy 37.8 ng/mL (29.95-100.01)
--- OUTSIDE RECORDS SUMMARY | 2018-09-30 20:29 | XMS RPT_ITS ---
:1940 Author Organization [facility] Support Name Relationship Address Phone JULIA WADE Unavailable [address] + [place] [address] PICKLESIMER, MEAGHAN Unavailable [address] + [place] [address] R Unavailable Unavailable Unavailable JULIA WADE Unavailable [address] + [place] [address] PICKLESIMER, MEAGHAN Unavailable [address] + [place] [address] R Unavailable Unavailable Unavailable JULIA WADE Unavailable [address] + [place] [address] PICKLESIMER, MEAGHAN Unavailable [address] + [place] [address] R Unavailable Unavailable Unavailable JULIA WADE Unavailable [address] + [place] [address] PICKLESIMER, MEAGHAN Unavailable [address] + [place] [address] R Unavailable Unavailable Unavailable JULIA WADE Unavailable [address] + [place] [address] PICKLESIMER, MEAGHAN Unavailable [address] + [place] [address] R Unavailable Unavailable Unavailable JULIA WADE Unavailable [address] + [place] [address] PICKLESIMER, MEAGHAN Unavailable [address] + [place] [address] R Unavailable Unavailable Unavailable JULIA WADE Unavailable [address] + [place] [address] PICKLESIMER, MEAGHAN Unavailable [address] + [place] [address] R Unavailable Unavailable Unavailable JULIA WADE Unavailable [address] + [place] [address] GEORGIA BILLSOGENE Unavailable [address] [facility] [address] + [place] [address] R Unavailable Unavailable Unavailable Care Team Providers Name Role Phone Kyra Iqbal GROUND WIRER-C Attending Unavailable Rasheed, Kyra GROUND WIRER-C Referring Unavailable Ranney, [facility] Unavailable RasheedKyra GROUND WIRER-C Attending Unavailable Rasheed, Kyra GROUND WIRER-C Referring Unavailable Ranney, [place] Primary Care Unavailable Ranney, Tyson Attending Unavailable Ranney, [facility] Primary [facility] Unavailable Prah, Caleb Attending Unavailable Ranney, [facility] Primary Care Unavailable Ranney, Christraynaer Referring Unavailable Praodilia, Caleb Attending Unavailable Ron, Christloulou Referring Unavailable Ron, [facility] Primary Care Unavailable Caleb Cole Consulting Unavailable Paulie Navarro Attending Unavailable Ranney, Christopher Referring Unavailable Ranney, [facility] Primary Care Unavailable Ranflora, Tyson Attending Unavailable Ranney, [facility] Primary Care Unavailable Praodilia, Caleb Attending Unavailable [facility], [facility] Referring Unavailable Ranney, [facility] Primary Care Unavailable Praodilia, Caleb Consulting Unavailable PROBLEMS PROBLEMS DATE TYPE CONDITION / CODE ATTENDING STATUS SOURCE 05/25/2018 Unknown 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 [place] specified types [facility], Repository unspecified site / C85.80(ICD-10) 11/17/2017 Unknown 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, Hospital unspecified site Repository / C83.30(ICD-10) 11/17/2017 Unknown 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 / Hospital C73(ICD-10) Repository PROCEDURES PROCEDURES No Procedure Records FoundRESULTS RESULTS ERYTHROCYTE SED RATE Collected: 06/29/2018 Status: F Source: [place] 11:29 AM [facility] REPOSITORY TYPE CODE TESTS RESULT OUT OF RANGE REFERENCE UNITS LAB L102.0000 0-20 mm/hr Normal SED RATE 8 Performed By: #### L101.9900, L100.0100, L500.4050, L501.1400, L501.9520, L506.0400, L506.1000 #### [facility] [place], [address] CBC W/DIFF, AUTOMATED Collected: 06/29/2018 Status: F Source: [place] 11:29 AM [facility] REPOSITORY TYPE CODE TESTS RESULT OUT [...] L100.0100, L500.4050, L501.1400, L501.9520, L506.0400, L506.1000 #### [facility] [place], [address] COMPREHENSIVE METABOLIC Collected: 06/29/2018 Status: F Source: [place] 11:29 AM [facility] REPOSITORY TYPE CODE TESTS RESULT OUT [...] L100.0100, L500.4050, L501.1400, L501.9520, L506.0400, L506.1000 #### [facility] [address] [place], [address] URIC ACID Collected: 06/29/2018 Status: F Source: [place] 11:29 AM [facility] REPOSITORY TYPE CODE TESTS RESULT OUT OF RANGE REFERENCE UNITS LAB L501.1400 3.5-7.2 mg/dL Normal URIC 6.2 Result Comment: The drugs N-Acetylcysteine and Metamizole may falsely depress this assay. Performed By: #### L101.9900, L100.0100, L500.4050, L501.1400, L501.9520, L506.0400, L506.1000 #### [facility] [address] [place], [address] THYROID STIM HORMONE Collected: 06/29/2018 Status: F Source: [place] (TSH) 11:29 AM [facility] REPOSITORY TYPE CODE TESTS RESULT OUT OF RANGE REFERENCE UNITS LAB L501.9520 0.358-3.74 uIU/mL Low TSH 0.07 Performed By: #### L101.9900, L100.0100, L500.4050, L501.1400, L501.9520, L506.0400, L506.1000 #### [facility] [address] [place], [place], [address] T4 FREE DIRECT Collected: 06/29/2018 Status: F Source: [place] 11:29 AM [facility] REPOSITORY TYPE CODE TESTS RESULT OUT OF RANGE REFERENCE UNITS LAB L506.0400 0.76-1.46 ng/dL Normal T4 FREE 1.37 DIRECT Performed By: #### L101.9900, L100.0100, L500.4050, L501.1400, L501.9520, L506.0400, L506.1000 #### [facility] [address] [place], [place], [address] VITAMIN D,25 HYDROXY Collected: 06/29/2018 Status: F Source: [place] 11:29 AM [facility] REPOSITORY TYPE CODE TESTS RESULT OUT [...] L100.0100, L500.4050, L501.1400, L501.9520, L506.0400, L506.1000 #### [facility] [address] [facility], [address] CRP Collected: 06/29/2018 Status: F Source: [place] 11:29 AM [facility] REPOSITORY TYPE CODE TESTS RESULT OUT OF RANGE REFERENCE UNITS LAB L501.6710 0.0-3.0 mg/L High 7.72 C-REACTIVE PROT Result Comment: C-Reactive Protein (CRP) provides useful information for the diagnosis, therapy and monitoring of inflammatory processes and associated diseases. For the evaluation of Relative Risk for Cardiovascular Disease, a High Sensitivity CRP (HSCRP) should be ordered. Performed By: #### L501.6710 #### [facility] [address] [facility], [address] BRAIN/HEAD WITHOUT Observed: 06/28/2018 Status: F Source: [place] CONTRAST 8:01 AM [facility] REPOSITORY [facility] Imaging Services [address] [place] [address] Brain/Head without Contrast MR#: [id number] Acct: [id number] Name: DANIE BILLS Jose Rep #: [id number] : 1940 M 77 From: Caden Holm MD PCP: Tyson Velasquez MD Status: REG CLI Study: Brain/Head without Contrast Date of Exam: 06/28/18 Exam# [id number] Ordering Dr: Kyra Iqbal GROUND WIRERZeenat STUDY: CT BRAIN WITHOUT CONTRAST REASON FOR [...] Caden Holm MD at 15:47 EST Tel [phone], Service support , CC: TIMOTHY Iqbal; Tyson Velasquez MD Lead Database Administrator: Signed ONCOLOGY VISIT REPORT Observed: 05/17/2018 Status: F Source: [place] 1:29 PM [facility] REPOSITORY [facility] [address] [place], [place] [address]all [facility] [place] [address] OFFICE VISIT Date of Service: 05/17/18 1318 MR#: [id number] Acct: [id number] Name: DANIE BILLS Rep #: [id number] : 1940 From: Caleb Cole MD Age/Sex: [...] 05/10/2018 Status: F Source: [place] 11:09 AM [facility] REPOSITORY Order Comment: Reason for Laboratory [...] Performed By: #### L100.0100 #### [facility] [place], [address] COMPREHENSIVE METABOLIC Collected: 05/10/2018 Status: F Source: [place] 11:09 AM [facility] REPOSITORY Order Comment: Reason for Laboratory Test . Comments: [id number] Thyroglobulin, Comprehensive (With Anti Serial Specimen #1, [...] Performed By: #### L500.4050, L501.9520, L504.2610 #### [facility] [address] [place], [address] THYROID STIM HORMONE Collected: 05/10/2018 Status: F Source: [place] (TSH) 11:09 AM [facility] REPOSITORY Order Comment: Reason for Laboratory Test . Comments: [id number] Thyroglobulin, Comprehensive (With Anti Serial Specimen #1, #2 or #3? 1 TYPE CODE TESTS RESULT OUT OF RANGE REFERENCE UNITS LAB L501.9520 0.358-3.74 uIU/mL Low TSH 0.12 Performed By: #### L500.4050, L501.9520, L504.2610 #### [facility] [address] [place], [address] LDH Collected: 05/10/2018 Status: F Source: [place] 11:09 AM [facility] REPOSITORY Order Comment: Reason for Laboratory Test . Comments: [id number] Thyroglobulin, Comprehensive (With Anti Serial Specimen #1, #2 or #3? 1 TYPE CODE TESTS RESULT OUT OF RANGE REFERENCE UNITS LAB L504.2610 87-241 U/L Normal LDH 197 Performed By: #### L500.4050, L501.9520, L504.2610 #### [facility] [address] [place], [address] MISCELLANEOUS LAB Collected: 05/10/2018 Status: F Source: [place] PROCEDURE 11:09 AM [facility] REPOSITORY Order Comment: Reason for Laboratory Test LC# [id number] THYROGOBULIN COMPREHENSIVE Comments: [id number] Thyroglobulin, Comprehensive (With Anti Test(s) Ordered: [id number] Thyroglobulin, Comprehensive (With Anti TYPE CODE TESTS RESULT OUT OF RANGE REFERENCE UNITS LAB L801.1541 Normal [facility] LAB TEST Result Comment: TEST RESULT LIMITS [...] (TG-BENJAMIN) ng/mL Not applicable TESTING PERFORMED AT [facility]. ORIGINAL REPORT ON FILE IN LAB CONTAINS ADDITIONAL TEST SITE INFORMATION. Performed By: #### L801.1541 #### [facility] [address] [place], [address] CBC-COMPLETE BLOOD CNT Collected: 03/02/2018 Status: F Source: [place] NO DIFF 3:04 PM [facility] REPOSITORY Order Comment: Order Date: 11/25/17 Order Info: 40963-6 - CBC Order Info: 46761-3 - SED TYPE CODE TESTS RESULT OUT [...] L101.9900, L500.4050, L501.9520, L506.0400, L503.0105, L506.1000 #### [facility] [address] [place], [place], [address] ERYTHROCYTE SED RATE Collected: 03/02/2018 Status: F Source: [place] 3:04 PM [facility] REPOSITORY Order Comment: Order Date: 11/25/17 Order Info: 67732-2 - CBC Order Info: 35811-7 - SED TYPE CODE TESTS RESULT OUT OF RANGE REFERENCE UNITS LAB L102.0000 0-20 mm/hr Normal SED RATE 3 Performed By: #### L100.0500, L101.9900, L500.4050, L501.9520, L506.0400, L503.0105, L506.1000 #### [facility] [address] [facility]. [place], [place], [address] COMPREHENSIVE METABOLIC Collected: 03/02/2018 Status: F [facility] REPOSITORY Order Comment: Order Date: 11/25/17 Order Info: [id number] - CMP Order Info: 22408-1 - LIPID Order Info: 3016-3 - TSH [...] L101.9900, L500.4050, L501.9520, L506.0400, L503.0105, L506.1000 #### [facility] [address] [facility]. [place], [place], [address] THYROID STIM HORMONE Collected: 03/02/2018 Status: F Source: [place] (TSH) 3:04 PM [facility] REPOSITORY Order Comment: Order Date: 11/25/17 Order Info: [id number] - CMP Order Info: 53320-7 - LIPID Order Info: 3016-3 - TSH Order Info: 3024-7 - T4F TYPE CODE TESTS RESULT OUT OF RANGE REFERENCE UNITS LAB L501.9520 0.358-3.74 uIU/mL Low TSH 0.05 Performed By: #### L100.0500, L101.9900, L500.4050, L501.9520, L506.0400, L503.0105, L506.1000 #### [facility] [address] [facility] [place], [place], [address] T4 FREE DIRECT Collected: 03/02/2018 Status: F Source: [place] 3:04 PM [facility] REPOSITORY Order Comment: Order Date: 11/25/17 Order Info: 0786-1 - CMP Order Info: 70802-1 - LIPID Order Info: 3016-3 - TSH Order Info: 3024-7 - T4F TYPE CODE TESTS RESULT OUT OF RANGE REFERENCE UNITS LAB L506.0400 0.76-1.46 ng/dL Normal T4 FREE 1.44 DIRECT Performed By: #### L100.0500, L101.9900, L500.4050, L501.9520, L506.0400, L503.0105, L506.1000 #### [facility] [address] [place], [place], [address] VITAMIN B12 Collected: 03/02/2018 Status: F Source: [place] 3:04 PM [facility] REPOSITORY Order Comment: Order Date: 11/25/17 Order Info: 2132-9 - B12 Order Info: 58799-0 - VITD25 TYPE CODE TESTS RESULT OUT OF RANGE REFERENCE UNITS LAB L503.0105 211-911 pg/mL Normal Vitamin B12 428 Performed By: #### L100.0500, L101.9900, L500.4050, L501.9520, L506.0400, L503.0105, L506.1000 #### [facility] [address] [place], [address] VITAMIN D,25 HYDROXY Collected: 03/02/2018 Status: F Source: [place] 3:04 PM [facility] REPOSITORY Order Comment: Order Date: 11/25/17 Order Info: 2132-9 - B12 Order Info: 25190-5 - VITD25 TYPE CODE TESTS RESULT OUT [...] L101.9900, L500.4050, L501.9520, L506.0400, L503.0105, L506.1000 #### [facility] [address] [place], [address] LIPID PROFILE Collected: 03/02/2018 Status: F Source: [place] 3:04 PM [facility] REPOSITORY Order Comment: Order Date: 11/25/17 Order Info: 0786-1 - CMP Order Info: 22858-7 - LIPID Order Info: 3016-3 - TSH [...] VLDL 11 Performed By: #### L500.4100 #### [facility] [address] [place], [address] ONCOLOGY VISIT REPORT Observed: 11/17/2017 Status: F Source: [place] 3:16 PM [facility] REPOSITORY [facility] [address] [place] [address] OFFICE VISIT Date of Service: 11/16/17 1351 MR#: [id number] Acct: [id number] Name: DANIE BILLS Rep #: [id number] : 1940 From: Caleb Cole MD Age/Sex: [...] Chronic Code Visit Office Visits / Consults: 00490 OV L3 Est 11/17/17 1516 <Electronically signed by Caleb Cole MD> Date Caleb Cole MD Cosigner Signature: Date (if applicable) CC: CBC W/DIFF, AUTOMATED Collected: 11/13/2017 Status: F Source: [place] 10:29 AM [facility] REPOSITORY Order Comment: Reason for Laboratory [...] Performed By: #### L100.0100, L500.4050, L504.2610 #### [facility] [address] [place], [address] COMPREHENSIVE METABOLIC Collected: 11/13/2017 Status: F Source: [place] 10:29 AM [facility] REPOSITORY Order Comment: Reason for Laboratory [...] Performed By: #### L100.0100, L500.4050, L504.2610 #### [facility] [address] [place], [address] LDH Collected: 11/13/2017 Status: F Source: [place] 10:29 AM [facility] REPOSITORY Order Comment: Reason for Laboratory Test . Serial Specimen #1, #2 or #3? 1 TYPE CODE TESTS RESULT OUT OF RANGE REFERENCE UNITS LAB L504.2610 87-241 U/L Normal LDH 195 Performed By: #### L100.0100, L500.4050, L504.2610 #### [facility] [address] [place], [address] ALLERGIES ALLERGIES DATE TYPE / CODE NAME / CODE REACTION SEVERITY SOURCE 05/17/2018 Drug Iodinated Rash [place] [facility] Allergy/416 Contrast[facility] 130148(SNOM and IV Repository ED CT) Dye/[id number](R XNORM) ENCOUNTERS ENCOUNTERS ADMIT/DISCHARGE ACCOUNT ADMITTING ENCOUNTER LOCATION SOURCE NUMBER CLASS 06/29/2018 [id number] Ambulatory [place] 8 [facility] ing:MFPLAB Repository 06/28/2018 [id number] [facility] ing:[facility] Repository 06/28/2018 [id number] Ambulatory [facility] 2 [facility] ing:CT Repository 05/17/2018 [id number] Ambulatory BMSBuilding:B [place] 9 [facility] Repository 05/17/2018 [id number] [facility] ing:OMD Repository 03/02/2018 [id number] Ambulatory [place] 9 [facility] ing:MFPLAB Repository 12/21/2017/ [id number] Ambulatory BMSBuilding:B [place] 8 7 [facility] Repository 11/16/2017 [id number] Ambulatory BMSBuilding:B [place] 4 MS.[facility] Repository PAYERS PAYERS ENCOUNTER GUARANTOR PAYER SUBSCRIBER SOURCE 06/29/2018 DANIE Garcia Primary DANIE [id number] Insurance:SHANNAN SYLVESTERB: [id number]: Repository [id number]: 330 [id number] [phone] (HP) Date:8493-57-61Yo [address] [address]IC: 06/29/2018 Secondary NOT GIVENUNK [place] Insurance:SELF PAY [facility] Number: Effective Repository Date:2018-06-29 06/28/2018 DANIE C Primary NOT GIVENUNK [place] [id number] Insurance:SELF PAY [place] Number: Effective Repository [id number]: 330) Date:2018-06-21 [phone] (HP) 06/28/2018 DANIE C Primary DANIE C [place] [id number] Insurance:SHANNAN PICKLESIMERDOB: [facility] [id number][facility] Hospitalicy Number: Repository [id number]: 330 [id number] [phone] () Date:6664-56-74Gg [address], [place] [address]PO: 06/28/2018 Secondary NOT GIVENUNK [place] Insurance:SELF PAY [facility] Number: Effective Repository Date:2018-06-21 05/17/2018 DANIE C Primary DANIE C [place] [id number] Insurance:SHANNAN PICKLESIMERDOB: [facility] [id number] [facility] Center Number: Repository [id number]: 330 [id number] [phone] (HP) Date:5519-78-99[address], [place] [address]HI: 05/17/2018 Secondary NOT GIVENUNK [place] Insurance:SELF PAY [facility] Number: Effective Repository Date:2018-05-17 05/17/2018 DANIE C Primary DANIE C [place] [id number] Insurance:SHANNAN PICKLESIMERDOB: [facility] [id number]. Cloud Hospitalicy Number: Repository [id number]: 330 [id number] [phone] (HP) Date:1091-42-55Uu [address] [address] [place] [address]IO: 05/17/2018 Secondary NOT GIVENUNK [place] Insurance:SELF PAY [facility] Number: Effective Repository Date:2016-10-01 03/02/2018 DANIE C Primary DANIE C [place] [id number] Insurance:SHANNAN PICKLESIMERDOB: [facility] [id number] Medical Center Number: Repository [id number]: 330 [id number] [phone] (HP) Date:9650-16-08As [address], [place] [address]WV: 03/02/2018 Secondary NOT GIVENUNK [place] Insurance:SELF PAY [facility] Number: Effective Repository Date:2018-03-02 12/21/2017 DANIE C Primary DANIE C [place] [id number] Insurance:SHANNAN PICKLESIMERDOB: [facility] [id number] Medical Center Number: Repository [address]Yls: 330 [id number] [phone] (HP) Date:8524-62-67Mb [place] [address] [place] [address]ZE: 12/21/2017 Secondary NOT GIVENUNK [place] Insurance:SELF PAY [facility] Number: Effective Repository Date:2017-07-02 11/16/2017 Danie C Primary Danie C [place] [id number] Insurance:SHANNAN PicklesimerDOB: [facility] [id number] Health Number: Repository [id number]: 330 [id number] [phone] (HP) Date:5026-59-63Ms [address] [address]KA: 11/16/2017 Secondary NOT GIVENUNK [place] Insurance:SELF PAY [facility] Number: Effective Repository Date:2017-11-16
== END ==
PROVIDERS: Family Provider Family Medicine; PCP Family Medicine; Visit Provider Family Medicine
DX: M06.9 Rheumatoid arthritis, unspecified (principal); E03.9 Hypothyroidism, unspecified
CPT/HCPCS: 36415; 80053; 82306; 84439; 84443; 84550; 85025; 85652; 86140

== ENCOUNTER → 2018-09-02 06:48 | Outpatient (CLI) | payer MEDICARE, SELFPAY ==
--- NOTE | 2018-09-02 06:52 | ECHOD_ITS ---
Reason For Study: AFIB Procedure This was a 2D Doppler, Color Flow transthoracic echocardiogram. Myocardial strain analysis was performed in this exam to aid in the assessment of cardiac function. The study was technically difficult. No on axis parasternal images due to poor acoustic windows. Exam performed in department. Left Ventricle Normal LV size. Apical false tendon noted. Left ventricular systolic function is normal. The estimated ejection fraction is 65 %. The global longitudinal strain = -19 % (normal). No evidence for diastolic dysfunction. No regional wall motion abnormalities noted. Right Ventricle Normal RV size. Normal systolic function. Atria Normal left atrium. Normal right atrium. No doppler evidence for ASD. Mitral Valve There is mild mitral annular calcification. Normal mitral valve. Mild (1+) mitral valve insufficiency. Tricuspid Valve Normal tricuspid valve. Mild tricuspid valve insufficiency. Right ventricular systolic pressure estimated to be 24 mmHg. Aortic Valve Trisinus/trileaflet aortic valve. Moderate focal aortic valve thickening. Moderate focal aortic valve calcification. Mild aortic stenosis. Pulmonic Valve The pulmonic valve is not well visualized. Great Vessels The aortic root is not well visualized. Pericardium/Pleural No pericardial effusion. MMode/2D Measurements & Calculations LVIDd: 3.9 cm IVSd: 0.85 cm LVOT diam: 2.0 cm LVIDs: 2.7 cm LVPWd: 0.84 cm LVOT area: 3.2 cm2 RVDd: 3.6 cm FS: 30.3 % LAV(MOD-bp): 54.8 ml LVAd ap4: 27.9 cm2 SV(MOD-sp4): 41.7 ml LAV(MOD-bp) Indexed: 25.3 ml/m2 EDV(MOD-sp4): 72.3 ml LAV(MOD-sp2): 56.9 ml EDV(sp4-el): 78.4 ml LAV(MOD-sp4): 52.0 ml LVAs ap4: 15.6 cm2 ESV(MOD-sp4): 30.6 ml ESV(sp4-el): 30.6 ml EF(MOD-sp4): 57.6 % EF(sp4-el): 61.0 % SV(sp4-el): 47.8 ml LA A4 area: 19.0 cm2 RA A4 area: 15.0 cm2 Time Measurements MV dec time: 0.41 sec Doppler Measurements & Calculations MV E max rafa: 71.4 cm/sec Lat Peak E' Rafa: 7.5 cm/sec Med Peak E' Rafa: 5.8 cm/sec MV A max rafa: 106.5 cm/sec E/E' lat: 9.5 E/E' med: 12.3 MV E/A: 0.67 Ao V2 max: 223.4 cm/sec LV V1 max: 95.2 cm/sec SV(LVOT): 64.9 ml Ao max P.0 mmHg LV V1 max P.6 mmHg Ao V2 mean: 174.8 cm/sec LV V1 mean P.1 mmHg Ao mean P.0 mmHg LV V1 mean: 67.7 cm/sec Ao V2 VTI: 49.0 cm LV V1 VTI: 20.4 cm DORA(I,D): 1.3 cm2 DORA(V,D): 1.4 cm2 PA V2 max: 84.6 cm/sec TR max rafa: 227.3 cm/sec TR max P.7 mmHg Interpretation Summary The study was technically difficult. Left ventricular systolic function is normal. The estimated ejection fraction is 65 %. The global longitudinal strain = -19 % (normal). Apical false tendon noted. There is mild mitral annular calcification. Mild (1+) mitral valve insufficiency. Mild tricuspid valve insufficiency. Mild aortic stenosis. Right ventricular systolic pressure estimated to be 24 mmHg. No evidence for diastolic dysfunction. Ordering Physician: Paulie Navarro Referring Physician: SUSAN SUN Performed By: Sandhya Heath, RDCS, RVT
--- NOTE | 2018-09-02 10:10 | STRESSREP ---
Stress Test Report Date: 09-02-2018 Procedure: Pharmacologic stress nuclear imaging study Indications: CAD Consent: Per the patient Procedure: The patient underwent pharmacologic (Regadenoson) evaluation with a peak heart rate of 90 beats per minute (62 predicted maximal heart rate) and a peak blood pressure of 128/76 mmHg. The baseline ECG demonstrated Normal sinus rhythm . The peak pharmacologic ECG demonstrated no obvious ECG changes . There were no cardiac dysrhythmias pretest, during pharmacologic infusion, or recovery. There was no complaint of chest discomfort during pharmacologic infusion or recovery. The examination was discontinued secondary to completion of protocol. Impression: 1. Pharmacologic (Regadenoson) evaluation 2. Peak pharmacologic ECG with no obvious ECG changes . 3. There were no cardiac dysrhythmias pretest, during pharmacologic infusion, or recovery. 4. Nuclear images pending Myocardial perfusion imaging study: Technique: The patient was injected with 11.5 millicuries of technetium 99m Cardiolite and subsequently rest SPECT Cardiolite nuclear imaging was obtained in the horizontal long, vertical long, and short axis views. The patient underwent pharmacologic (Regadenoson) evaluation with a peak heart rate of 90 beats per minute (62 % percent predicted maximal heart rate) and a peak blood pressure of 128/76 mmHg. The patient was injected with 33.9 millicuries of technetium 99m Cardiolite and subsequently stress SPECT Cardiolite nuclear imaging was obtained in the horizontal long, vertical long, and short axis views. A gated Cardiolite study at peak stress was obtained. Interpretation: Rest and stress SPECT Cardiolite nuclear imaging status post realignment, normalization, and attenuation correction demonstrate relative uniform tracer uptake and myocardial perfusion appearing within normal limits . There is end systolic thickening and brightening. The gated Cardiolite study demonstrates myocardial thickening and inward wall motion. The reported LVEF is 75 %. Impression: 1. Rest and stress SPECT Cardiolite nuclear imaging demonstrate relative uniform tracer uptake and myocardial perfusion appearing within normal limits. 2. The gated Cardiolite study reports an LVEF of 75 %. This note was generated with [employer] software. It may contain incorrect words, spelling, and punctuation that were not noted in checking the note before signing.
== END ==
PROVIDERS: Family Provider Family Medicine; PCP Family Medicine; Referring Provider Internal Medicine Cardiovascular Disease; Visit Provider Internal Medicine Cardiovascular Disease
DX: I25.10 Atherosclerotic heart disease of native coronary artery without angina pectoris (principal); E78.2 Mixed hyperlipidemia; I35.0 Nonrheumatic aortic (valve) stenosis; I47.2 Ventricular tachycardia; I48.0 Paroxysmal atrial fibrillation
CPT/HCPCS: 78452; 93017; 93306; A9500; A4216; J2785

== ENCOUNTER → 2018-09-28 10:10 | Outpatient (CLI) | payer MEDICARE, SELFPAY ==
[2018-05-17 14:16] VITALS: BMI 32.0
[2018-09-28 12:31] LABS: Absolute Lymphocyte Count 1.06 X10^3/ul (0.83-4.51); Absolute Neutrophil Count 4.9 X10^3/uL (2.0-7.7); Basophil# 0.04 X10^3/uL; Basophil% 0.6 % (0-1); Eosinophils% 1.6 % (0-5); Hematocrit 38.7 % (40-54); Lymphocyte # 1.06 X10^3/ul (4.0); Lymphocyte % 16.5 % (19-41); Mean Corp Hgb Conc 33.6 g/gl (32-36); Mean Corpuscular Hgb 30.2 pg (27.0-32.0); Mean Corpuscular Volume 89.8 fL (80-94); Mean Platelet Vol. 8.8 fl (6.2-12.0); Monocyte# 0.28 X10^3/uL; Monocyte% 4.4 % (0-10); Neutrophil # 4.93 X10^3/uL (2.7-7.7); Neutrophil % 76.7 % (47-70); Platelet Count 238 K/mm3 (150-450); RBC Distribution Width CV 13.8 % (11.6-14.6); RBC Distribution Width SD 45.5 fl (35.1-43.9); Red Blood Count 4.31 M/mm3 (4.6-6.2); White Blood Count 6.4 K/mm3 (4.4-11.0)
[2018-09-28 12:36] LABS: POSITIVE COUNT NO; POSITIVE DIFFERENTIAL NO; POSITIVE MORPHOLOGY NO
[2018-09-28 12:52] LABS: AST(SGOT) 20 U/L (15-37); Alanine Aminotransfer ALT/SGPT 31 U/L (16-61); Albumin, Serum 3.9 g/dL (3.2-5.0); Alkaline Phosphatase 82 U/L (45-117); Bilirubin, Direct 0.21 mg/dL (0.00-0.30); EST Glomerular Filtration Rate 69 mL/min (>60); Est Glom Filt Rate - Afr Amer 83 mL/min (>60); Globulin 3.2 g/dL (2.2-4.2); Protein, Total 7.1 g/dL (6.4-8.2)
[2018-09-28 13:04] LABS: Vitamin D,25 Hydroxy 37.3 ng/mL (29.95-100.01)
[2018-09-28 13:16] LABS: Cholesterol 114 mg/dL (200); High Density Lipoprotein 34 mg/dL; T4 Free Direct 1.37 ng/dL (0.76-1.46); Thyroid Stim Hormone (TSH) 0.21 uIU/mL (0.358-3.74); Triglycerides 56 mg/dL; Very Low Density Lipoprotein 11 mg/dL (5-40)
== END ==
PROVIDERS: Internal Medicine Rheumatology; Family Provider Family Medicine; PCP Family Medicine; Referring Provider Family Medicine; Visit Provider Family Medicine
DX: M05.79 Rheumatoid arthritis with rheumatoid factor of multiple sites without organ or systems involvement (principal); E03.9 Hypothyroidism, unspecified; E78.2 Mixed hyperlipidemia; E55.9 Vitamin D deficiency, unspecified; Z79.899 Other long term (current) drug therapy
CPT/HCPCS: 36415; 80061; 80076; 82306; 82565; 84439; 84443; 85025

== ENCOUNTER 2019-03-01 11:30 | Outpatient (RCR) | payer MEDICARE, SELFPAY ==
--- NOTE | 2019-02-01 11:54 | HP.PTEVAL ---
Patient's Visit Information HECTOR LAUREN is a 78 year old M referred to Physical Therapy by Branden Velasquez MD with a diagnosis of Balance problems. 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 Also recommend 2x/week x 4-6 weeks PT for: 1. ankle strength and progress to HEP. 2. ec and foam balance ex progress to HEP as safety allows, also FW weight shift. 3. LB ROM exrcises (rotation, flexion , ext and core strength) progressing to I. - Subjective Findings: Ron thinks ex may help balance issues. Bending over to brush teeth and recover makes him stumble backwards at times. Bending over forward can create balance problems. Standing with ec is a problem in mandaeism. No spinning. Has L leg numbness and tingly most of time. Soemtimes R leg is like this also. Has not had back checked by anybody recently and said lower back was a mess as he was checking out his hips. Wears a lift in L shoe from this. Sometimes gets pain lying on back and is stiff especially in am. Sleep is not great becasue of wifes medical problem worries. 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 Mowing , cleaning barn and fix fence as daughters watch his . Not employed. No regualr ex except horseback riding. Standing outside to greet at mandaeism is wobbly. No cane or walker and does not wish to. - Pain LBP Pain Intensity (Out of 10): 0 Pain Intensity Range: 0, 5 - Objective Walks with neuropathic gait pattern(foot slap L>R) but I. Trasnfers I but stumbles BW lacking FW weight shift today at times. Moreso with ec. LB AROM mod limited in ext adn flexion and SB without pain increased. reflexes 0/3 patella and achilles. Sensation B feet diminished to gross light touch and worse in L foot. Strength L ankle is 1/5 and R ankle is 3-/5, tends to move hips instead of ankles for in/out movements, poor motor control and coordination to reciprocal heel and toe tap is poor. knee strength 4+/5 and hip strength 4+/5 B. - Balance Scores Functional Gait Assessment Score: 21 % Disability: 30.0000 CATSIB Score (Max score 120 seconds): 92 - Goals Goal 1:: FGA to minimzie fall risk Goal Time Frame: 4-6 Weeks Goal 2:: I appropr strength adn balance ex to minimize future problems. Goal Time Frame: 4-6 Weeks Goal 3:: Pt feel balance 50% improved to educational administration teacher mandaeism adn pray without LOB and greet eople without stumbling BW. 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 Rehabilitation Potential: Questionable - Anticipated Interventions Patient/Client Instruction: Educate patient on: Condition, Plan of Care For the Purpose of:: To improve gait and locomotor functions, To improve balance Therapeutic Exercise to Include: Strength training, Balance training, Flexibilty training, Gait and locomotor training For the Purpose of:: To increase tolerance to activity/condition/position, To improve gait and locomotor functions, To improve balance, To improve safety with gait Thank you for the opportunity to evaluate your patient. For Medicare and Medicare HMO plans, please review the plan of care and approve it. It will need to be FAXED BACK to us at [phone] for Medicare purposes. For Medicare only, by signing this I certify the plan of care. Please let me know if there are questions or concerns regarding this plan of care. Physician Signature: Date:
--- NOTE | 2019-03-01 12:24 | HP.PTDCSUM ---
HP - PT D/C Summary It has been my pleasure to treat HECTOR LAUREN under orders from Branden Sun MD, for the diagnosis of Balance problems for a total of 8 visit(s). Discharge Date: 03/01/19 Please see the following information for a summary of their discharge status. - Subjective Subjective: Developed LBP Thursday evening. Shoshone like testicle in a vice adn very bad. Put up with it for 90 minutes and then took prednisone and it eased up. LB has hurt since Thursday afternoon. Back and R groin have hurt since the . Has not informed doctor. Doesn't feel like balance or gait is improving. Feels like L ankle ROM is improving.Will be in [place] office and will talk to pebbles case LBP/testicle. - Pain LBP Pain Intensity (Out of 10): 5 - Overall Improvement % Improvement: 0 - Objective Objective/Function: L/S ROM unchanged adn still increase pain with ext, tends to stay hunched over in gait and stance. Gait is I but hunched and slight L trendelenberg. Balance is +2 vs last check but not improving subjectively. OVERALL, PATIENT HAS NEW SYMPTOMS OF INCREASED LBP ADN TESTICULAR PAIN AND SHOULD CHECK WITH DOCTOR BEFORE COTNINUING TREATMENT. WILL CONTACT DOCTOR OFFICE TODAY FOR APPOINTMENT. - Goals Goal 1:: FGA to minimzie fall risk Goal Progress: Progressing Goal 2:: I appropr strength adn balance ex to minimize future problems. Goal Progress: not able due to pain Goal 3:: Pt feel balance 50% improved to record label intern restorationist adn pray without LOB and greet eople without stumbling BW. Goal Progress: Not Progressing - Plan Plan: D/C, BACK TO DOCTOR FOR CHECK. - D/C Information Discharge Comments: pT BALANCE SLIGHTLY BETTER BTU FRUSTRATED WITH LBP AND NEW TESTICULAR SYMPTOMS. WILL CLL AND SCHEDULE WITH DR. SUN. If there are questions or concerns regarding this patient's physical therapy, please feel free to call me at [phone]. Thank you for the referral of this patient. Sincerely, Gaston Serna, DPT, OCS, CSCS
== END 2019-03-01 19:00 | disposition home or self-care (01) ==
LOC: PT 11:30
PROVIDERS: Family Provider Family Medicine; PCP Family Medicine; Visit Provider Family Medicine
DX: R26.9 Unspecified abnormalities of gait and mobility (principal)
CPT/HCPCS: 97014; 97110; 97163; 97530; G0283

== ENCOUNTER → 2019-05-27 15:41 | Outpatient (CLI) | payer MEDICARE, SELFPAY ==
[2019-05-18 14:23] VITALS: BMI 29.7
--- NOTE | 2019-05-27 15:58 | MRI_ITS ---
STUDY: MRI LUMBAR SPINE WITHOUT CONTRAST REASON FOR EXAM: Male, 78 years old. Low-back pain and numbness in left leg TECHNIQUE: Standardized fat and water weighted pulse sequences were obtained in the sagittal and axial planes. COMPARISON: May 21, 2017 FINDINGS: T12-L1: Normal endplates. Normal disc height, desiccation and normal morphology. Normal bilateral facet joints. Normal central canal and bilateral lateral recesses. Normal bilateral intervertebral neural foramina. Normal lumbar lordosis. There is no substantial scoliosis. Normal conus medullaris that terminates at T12 L1-2: Normal endplates. Normal disc height, desiccation and minor annular bulge with small bilateral foraminal disc protrusions. Normal bilateral facet joints. Normal central canal and bilateral lateral recesses. Mild bilateral neuroforaminal stenosis L2-3: Normal endplates. Normal disc height, desiccation and mild annular bulge.. Minor facet arthropathy and thickening of ligamenta flava.. Moderate central canal and bilateral recess stenosis. Moderate bilateral neuroforaminal stenosis L3-4: Degenerative endplate changes. Normal disc height, desiccation and minor annular bulge.. Facet arthropathy and thickening of ligamenta flava.. Mild central canal stenosis and bilateral lateral recess stenosis. Moderate to severe bilateral neuroforaminal stenosis exaggerated by shortened pedicles L4-5: Degenerative endplate changes. Mild narrowing of the disc space with desiccation of the disc and mild annular bulge.. Bilateral facet arthropathy and thickening of ligamenta flava slightly greater on the left. Moderate central canal. Moderate bilateral recess stenosis and severe bilateral neuroforaminal stenosis exaggerated by shortened pedicles. L5-S1: Degenerative endplate changes.. Narrowed disc space with minimal bulging disc osteophyte complex.. Bilateral facet arthropathy. Normal central canal bilateral recesses. Moderate bilateral neuroforaminal stenosis Normal visualized sacral ala. Normal visualized paraspinous soft tissue structures. MRI/Spine Lumbar (Routine) IMPRESSION: No evidence for acute fracture or subluxation. Multilevel disc degeneration and spinal stenosis secondary to disc disease and bony hypertrophy with thickening of ligamenta flava exaggerated by shortened pedicles Electronically Signed: Marin Hubbard MD at 17:18 EST , Service support ,
== END ==
PROVIDERS: Family Provider Family Medicine; PCP Family Medicine; Referring Provider Family Medicine; Visit Provider Family Medicine
DX: M51.36 Other intervertebral disc degeneration, lumbar region (principal)
CPT/HCPCS: 72148

== ENCOUNTER → 2019-08-02 14:24 | Outpatient (CLI) | payer MEDICARE, SELFPAY ==
[2019-05-18 14:23] VITALS: BMI 29.7
[2019-08-02 15:23] LABS: Hematocrit 39.6 % (40-54); Hemoglobin 13.2 g/dL (13.0-16.5); Mean Corp Hgb Conc 33.3 g/dL (32-36); Mean Corpuscular Hgb 30.9 pg (27.0-32.0); Mean Corpuscular Volume 92.7 fL (80-94); Mean Platelet Vol. 8.6 fl (6.2-12.0); Platelet Count 210 K/mm3 (150-450); RBC Distribution Width CV 14.5 % (11.6-14.6); RBC Distribution Width SD 48.6 fl (35.1-43.9); Red Blood Count 4.27 M/mm3 (4.6-6.2); White Blood Count 6.6 K/mm3 (4.4-11.0)
[2019-08-02 16:01] LABS: International Normalized Ratio 1.2; Partial Thromboplast Time 33.3 Seconds (24.1-36.2); Prothrombin Time (Protime)PT. 15.1 SECONDS (11.7-14.9)
[2019-08-02 16:19] LABS: Anion Gap 3 (5-15); BUN 13 mg/dL (7-18); BUN/Creat Ratio 13.5 RATIO (10-20); Calcium,Total 9.1 mg/dL (8.5-10.1); Chloride 106 mmol/L (98-107); Creatinine, Serum 0.96 mg/dL (0.70-1.30); EST Glomerular Filtration Rate 80 mL/min (>60); Est Glom Filt Rate - Afr Amer 97 mL/min (>60); Glucose 85 mg/dL (74-106); Sodium Level 138 mmol/L (136-145); Thyroid Stim Hormone (TSH) 0.09 uIU/mL (0.358-3.74)
[2019-08-05 09:36] LABS: T4 Free Direct 1.43 ng/dL (0.76-1.46)
== END ==
LOC: MFPLAB 14:25
PROVIDERS: PCP Family Medicine; Referring Provider Family Medicine; Visit Provider Family Medicine
DX: Z01.818 Encounter for other preprocedural examination (principal); M06.9 Rheumatoid arthritis, unspecified; E03.9 Hypothyroidism, unspecified
CPT/HCPCS: 36415; 80048; 84439; 84443; 85027; 85610; 85730

== ENCOUNTER 2019-08-12 18:35 | Inpatient (IN) | payer MEDICARE, SELFPAY ==
[2019-05-18 14:23] VITALS: BMI 29.7
[2019-08-12 18:56] VITALS: BMI 29.4
[2019-08-12 21:12] VITALS: BP 123/68; PULSE 84; RESP 18; TEMP 36.8; O2SAT 96
[2019-08-12] MEDS: Acetaminophen 500 MG Tablet 1000 MG PO (21:15)
[2019-08-12] MEDS: Bisacodyl 5 MG Tablet 10 MG PO (21:15)
[2019-08-12] MEDS: oxyCODONE 5 MG Tablet PO (21:15)
[2019-08-12] MEDS: Senna/Docusate Sodium 1 Tablet 2 TABLET PO (21:16)
[2019-08-12 22:26] VITALS: BMI 29.4
[2019-08-13] MEDS: oxyCODONE 5 MG Tablet PO ×4 (04:21→18:33)
[2019-08-13] MEDS: Levothyroxine 137 MCG Tablet PO (05:22)
[2019-08-13] MEDS: Magnesium Hydroxide 30 ML UDC PO (05:22)
[2019-08-13 07:00] VITALS: BP 100/61; PULSE 82; RESP 18; TEMP 36.6; O2SAT 96
[2019-08-13 07:06] VITALS: O2SAT 96
[2019-08-13] MEDS: Aspirin E.C. 81 MG Tablet PO (08:41)
[2019-08-13] MEDS: Folic Acid 1 MG Tablet PO (08:41)
--- NOTE | 2019-08-13 13:13 | PCM.HP.STD ---
Problem List (1) Status post lumbar laminectomy Status: Acute (2) S/P lumbar fusion Status: Acute (3) Diffuse large B cell lymphoma Status: Resolved Qualifiers: Lymphoma site: unspecified region Qualified Code(s): C83.30 - Diffuse large B-cell lymphoma, unspecified site Comment: follows with Dr. Cole (4) Thyroid cancer Status: Resolved (5) Hypothyroidism Status: Chronic Qualifiers: Hypothyroidism type: postoperative Qualified Code(s): E89.0 - Postprocedural hypothyroidism (6) BPH (benign prostatic hyperplasia) Status: Chronic Qualifiers: Lower urinary tract symptom presence: unspecified whether lower urinary tract symptoms present Qualified Code(s): N40.0 - Benign prostatic hyperplasia without lower urinary tract symptoms (7) Fe deficiency anemia Status: Chronic Qualifiers: Iron deficiency anemia type: unspecified iron deficiency Qualified Code(s): D50.9 - Iron deficiency anemia, unspecified (8) Arthritis Status: Chronic (9) Speech disturbance Status: Resolved (10) Confusion Status: Resolved (11) TIA (transient ischemic attack) Status: Resolved Qualifiers: Transient cerebral ischemia type: unspecified Qualified Code(s): G45.9 - Transient cerebral ischemic attack, unspecified (12) TGA (transient global amnesia) Status: Resolved (13) Paroxysmal atrial fibrillation Status: Chronic (14) 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 Paolo Melgoza at [facility] on 08/08/2019. The pt is a 78-year-old male with a PMH of spondylolisthesis L3-4, lumbar stenosis L2-5, lumbar disc disease, hypothyroidism, rheumatoid arthritis left lower extremity foot drop, BPH, iron deficiency anemia, osteoarthritis, history of diffuse large B-cell lymphoma (status post chemotherapy and radiation), TIA in 2016 and thyroid cancer (status post resection in June 2015) who was admitted to the Inpatient rehab unit at [facility] on 08/12/2019 for debility secondary to recent lumbar laminectomy and fusion for greater than 3 hours of therapy daily with a goal of returning home at or near prior level of independence. The patient lives at home alone in a two-story house and has 4 steps to enter the house with a handrail present and 13 steps to get up to his bedroom on the second floor. He has a walk-in shower, elevated toilet and bilateral upper extremity support. The patient was independent with ADL's, mobility and driving prior to hospitalization. Surgery performed was bilateral posterior hemilaminectomy L2-5, microdiscectomy L2-3 and posterolateral fusion L3-4. Pharmacologic nuclear stress test at [facility] in August 2018 showed a gated nuclear ejection fraction of 75% and it was negative for ischemia. Echocardiogram in August 2018 showed an ejection fraction of 65% with no regional wall motion abnormalities. There was mild aortic stenosis and the right ventricular systolic pressure was within normal limits. 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 Poor balance, numbness in the left foot. Gout M10.9 Hernia K46.9 Lymphoma C85.90 Skin cancer C44.90 DDD (degenerative disc disease) GERD (gastroesophageal reflux disease) K21.9 History of left heart catheterization (LHC) Onset Date: ~07/23/04 Z98.890 Allergies Iodinated Contrast Media [CONTRASTS] Allergy (Intermediate, Verified 05/18/19 14:16) Rash Home Medications: Ambulatory Orders Medication Instructions Recorded Cholecalciferol (VIT D3) [Vitamin 1,000 unit PO DAILY 06/06/15 D3] Aspirin [Aspirin EC] 81 mg PO DAILY 11/07/16 Levothyroxine [Synthroid] 137 mcg PO DAILY 11/11/16 Folic Acid 1 mg PO DAILY@0800 08/12/19 Surgical History: Surgical History (Last Reviewed 08/13/19 @ 13:26 by Zaira Coronado DO) History of carpal tunnel surgery Z92.89 History of cataract extraction Z98.49 History of cholecystectomy Z90.49 History of knee replacement Z96.659 History of thyroidectomy E89.0 Surgical History: - - Bilateral cataract surgery, thyroid cancer resection, cholecystectomy, bilateral carpal tunnel surgery, right knee arthroscopic surgery, left knee arthroscopic surgery. Psychiatric History: No pertinent psych hx Lives: Alone Smoking Status: Never smoker Tobacco Use: Non-smoker Alcohol: Rare Drugs: None - *Family History Maternal Family History: Family History (Last Reviewed 08/13/19 @ 13:26 by Zaira Coronado DO) Father Leukemia History Items: - - Notes mother passed following trauma MVA at age 51. Paternal Family History: Family History (Last Reviewed 08/13/19 @ 13:26 by Zaira Coronado DO) Father Leukemia History Items: - - Father at age 73 secondary to leukemia. Review of Systems Constitutional: Reports: Weakness. Denies: Anorexia, Chills, Fever, Weight Change HEENT: Denies: Difficulty Swallowing, Head Aches, Nasal Congestion, Sinus Congestion, Sinus Drainage, Sore Throat Cardiovascular: Denies: Chest Pain, Palpitations Respiratory: Denies: Cough, Shortness of breath at rest, Sputum production Gastrointestinal: Denies: Abdominal Pain, Nausea, Vomiting Genitourinary: Reports: - - He can not urinate while lying down or sitting. When he stands the stream is much better. the post void residual this morning was 300.......it was not rechecked when he stood to urinate. Denies: Dysuria Musculoskeletal: Reports: Back Pain, Leg Pain - left....but much better than prior to surgery. Admits to having muscle atrophy on the left.. Denies: Joint Pain, Joint Tenderness Skin: Denies: Jaundice, Rash, Wounds Neurological: Reports: Balance problems. Denies: Slurred speech, Confusion, Difficulty swallowing, Focal weakness, Numbness, Tingling, Tremor, Seizures Psychiatric: Denies: Anxiety, Depression, Homicidal Ideations, Suicidal Ideations Endocrine: Reports: Hx of Irradiation - had large B cell lymphoma Hematologic/ Lymphatic: Denies: Easy Bruising, Easy Bleeding, Hx of blood clot VTE Information - Inpt Only VTE Present on Admission: No VTE Mechan Device Prophylaxis: SCD's, Knee High ARMANDO Hose VTE Pharm Prophylaxis ordered?: No Reason prophylaxis not ordered:: Treatment Not Indicated - surgeon did not want the pt to be on pharmacologic prohylaxis Patient Problems: Active and Suspected Problems (Last Reviewed 08/13/19 @ 13:26 by Zaira Coronado DO) Status post lumbar laminectomy (Acute) S/P lumbar fusion (Acute) - Physical Exam Vitals/I&O's: Vital Signs Temp Pulse Resp BP Pulse Ox 97.8 F 82 18 100/61 96 08/13/19 07:00 08/13/19 07:00 08/13/19 07:00 08/13/19 07:00 08/13/19 07:06 Oxygen Delivery Method Room Air Weight: 216 lb 14.958 oz Body Mass Index (BMI) 29.4 Intake and Output for Last 24 Hours 08/11/19 08/12/19 08/13/19 23:59 23:59 23:59 Output Total 150 / 150 Balance -150 / -150 General: Alert, Oriented x3, Cooperative, No apparent distress, Well developed, Well nourished, - - Lying in bed visiting with his dtr and another man HEENT: Atraumatic, PERRLA, EOMI, Normocephalic Oral: Moist Mucosa, No Gingival or Mucosal Lesions/ Ulcerations Neck: Supple, No Nodes, Trachea Midline Lungs: Clear to auscultation, Normal air movement Cardiovascular: Regular rate, Regular Rhythm, Normal S1, Normal S2, Murmur - atthe second RICS and radiating to the apex and the LLSB Abdomen: Bowel Sounds Present, Soft, Non Tender, Non-Distended Extremities: No clubbing, No cyanosis, No edema, No Calf Tenderness Skin: No rashes, No breakdown, - - he has a bandage on the incision......will examine the next time the bandage is changed Musculoskeletal: Muscle Wasting - LLE Neurological: Cranial nerves II-XII grossly intact, Neuro grossly intact - The strength in the LLE is 4/5 and 5/5 in the RLE and the UE's, - Psych/Mental Status: Normal Affect, Appropriate Current Medications Acetaminophen (Tylenol) 1,000 mg PO Q8H PRN PRN PRN Reason: Pain Score 1-10/10 Last Admin: 08/12/19 21:15 Dose: 1,000 mg Documented by: Aspirin (Ecotrin) 81 mg PO DAILY@0800 FLORES Last Admin: 08/13/19 08:41 Dose: 81 mg Documented by: Bisacodyl (Dulcolax) 10 mg RECTAL .PRN X 1 PRN PRN Reason: Constipation Cholecalciferol (Vitamin D) 1,000 unit PO DAILY [facility] Last Admin: 08/13/19 08:41 Dose: 1,000 unit Documented by: Folic Acid (Folic Acid) 1 mg PO DAILY@0800 [facility] Last Admin: 08/13/19 08:41 Dose: 1 mg Documented by: Levothyroxine Sodium (Synthroid) 137 mcg PO DAILY@0600 [facility] Last Admin: 08/13/19 05:22 Dose: 137 mcg Documented by: Magnesium Hydroxide (Milk Of Magnesia) 30 ml PO .PRN X 1 PRN PRN Reason: Constipation Last Admin: 08/13/19 05:22 Dose: 30 ml Documented by: Methotrexate (Methotrexate) 10 mg PO MARTINEZ@0800,1600 [facility] Oxycodone HCl (Oxyir) 5 mg PO Q4H PRN PRN PRN Reason: Pain Score 1-10/10 Last Admin: 08/13/19 08:41 Dose: 5 mg Documented by: Polyethylene Glycol (Miralax) 17 gm PO DAILY [facility] Last Admin: 08/13/19 08:18 Dose: Not Given Documented by: Senna/Docusate Sodium (Senokot-S, Dolores-Colace) 2 tablet PO BID [facility] Last Admin: 08/13/19 08:18 Dose: Not Given Documented by: Assessment/Plan All Active Problems (Last Reviewed 08/13/19 @ 13:26 by Zaira Coronado DO) Status post lumbar laminectomy (Acute) S/P lumbar fusion (Acute) Confusion (Resolved) Diffuse large B cell lymphoma (Resolved) Speech disturbance (Resolved) TGA (transient global amnesia) (Resolved) TIA (transient ischemic attack) (Resolved) Thyroid cancer (Resolved) Impressions 1. Debility secondary to recent Lumbar laminectomy for spinal decompression L2-5 followed by fusion of L3-4 2. Normochromic normocytic anemia-more likely than not secondary to blood loss from recent surgery. Monitor periodically. 3. Hyponatremia - mild. Will continue to monitor 4. Hypothyroidism secondary to thyroidectomy for thyroid cancer 5. Myelopathy left lower extremity with foot drop secondary to spinal canal stenosis and foraminal stenosis. The radicular pain has improved since the surgery and his pain now is primarily at the site of the surgery. 6. Diffuse large B-cell lymphoma in remission/thyroid cancer resolved/iatrogenic hypothyroidism/BPH/history of iron deficiency/osteoarthritis/paroxysmal atrial fibrillation/coronary artery disease/rheumatoid arthritis-chronic conditions that complicate care, management and prognosis. PLAN PT for gait stability OT for ADL's ST for evaluation Analgesics as needed Bowel protocol Fall precautions Assess for Anxiety/Depression GI prophylaxis not indicated DVT prophylaxis with SCD's and ARMANDO hose....per Dr. Melgoza no pharmacologic prophylaxis. Follow up with Dr. Paolo Melgoza and Dr. Velasquez following DC from [facility] Will need to find out if he was on anticoagulation prior to surgery and who is laboratory clerk is.......if he was on anticoagulation will need to ask Dr. Melgoza when he will be OK to restart the anticoagulation Code Visit Inpatient E&M: 47555 Init Hosp L2
[2019-08-13] MEDS: Gabapentin 300 MG Capsule PO (17:11)
[2019-08-13] MEDS: Acetaminophen 500 MG Tablet 1000 MG PO (17:13)
[2019-08-13 19:00] VITALS: BP 116/73; PULSE 79; RESP 16; TEMP 36.8; O2SAT 98
[2019-08-13 21:11] VITALS: O2SAT 98
[2019-08-14] MEDS: oxyCODONE 5 MG Tablet PO ×5 (01:09→21:08)
[2019-08-14] MEDS: Levothyroxine 137 MCG Tablet PO (06:02)
[2019-08-14 07:09] VITALS: BP 97/63; PULSE 73; RESP 16; TEMP 36.6; O2SAT 96
[2019-08-14 07:20] VITALS: O2SAT 94
[2019-08-14] MEDS: Gabapentin 300 MG Capsule PO ×2 (07:52→16:49)
[2019-08-14] MEDS: Aspirin E.C. 81 MG Tablet PO (07:52)
[2019-08-14] MEDS: Acetaminophen 500 MG Tablet 1000 MG PO ×2 (07:52→16:49)
[2019-08-14] MEDS: Folic Acid 1 MG Tablet PO (07:53)
[2019-08-14] MEDS: Methotrexate 2.5 MG Tablet 10 MG PO ×2 (07:55→16:49)
--- NOTE | 2019-08-14 14:42 | PCM.RU.PYE ---
Admission Information Primary Diagnosis:: Debility secondary to recent lumbar laminectomy and fusion. Status Changes from Prescreening?: No changes Identified Actual Problem List:: Falls, Skin Intergrity, Mobility Impaired, Self Care Deficit, Alteration-Leisure Activ. Potential Problem List:: DVT, Bleeding, Infection, UTI, Falls, Skin Integrity, Depression Risk of Complications DVT: ARMANDO Hose, Sequential Compression Device Bleeding: Monitor Lab Values, Nursing to Teach Precautions for anti-coagulation therapy., Wound, if applicable, to be assessed every shift., Stroke patients assessed for lethargy or change in status. Infection: Clinical Staff to Monitor for S/S of infection:, S/S of infection include fever, redness, warmth, etc. Urinary Tract Infection: Monitor for frequency, burning, discomfort, or incontinence., Nursing will obtain urine sample for urinalysis and C&S when ordered. Aspiration: Clinical staff will monitor for coughing, drooling, congestion., Speech will evaluate swallowing and dsyphasia., Nursing will monitor patient swallowing during meals. Falls: Patient will be evaluated for Fall Precautions, Patient will be placed on Fall Precautions as indicated per protocol. Skin Breakdown: Nursing will assess skin daily using assessment tool., Nursing will place on Skin Breakdown Precautions as indicated. Pain: Clinical staff will assess patient's pain level per protocol., Medications will be given, if needed, and the pain level reassessed., Other methods: Massage, distraction, decrease stimulus, etc. used PRN. Plan of Care Patient requires physician specializing in physical medicine and rehab oversight to provide close medical supervision of rehab issues including: Pain Management, Sleep Problems, Bowel and Bladder, Medical and co-morbidity Management, DVT prophylaxis, Rehabilitation Leadership, Coordination of treatment team Patient needs Physical Therapy: For a minimum of 1 hour, At least 5 out of 7 days Patient needs Physical Therapy to improve:: Mobility, Mobility, Mobility, Strengthening, Transfers, Stretching, ROM, Endurance, Stairs, Gait, Balance Patient needs Occupational Therapy: For a minimum of 1 hour, At least 5 out of 7 days Patient needs Occupational Therapy to improve ADL's incl.: Eating, Grooming, Bathing, Dressing, Toileting, Toilet transfers, Community Reintegration, Higher functioning activities, Household tasks, Adaptive Equipment, Splinting, Other activities as determined Patient requires 24/ Rehabilitation Nursing for: Pain Issues, Identifying and preventing risk factors, Monitoring and reporting current medical conditions, Assisting with ambulation, transfer, and all ADL's, Teaching patients about disease process and medications, Family teaching, Providing safe environment, Bowel and Bladder Issues, Skin integrity, Medication Management Patient needs Customer Complaint Clerk/ Case Management for: Discharge Planning, Arranging Home Equipment or Services, Family Interventions Patient needs Dietary and Nutrition Services for: Adequate Nutrition, Nutritional Supplements, Nutritional Education Goals Patient will remain: free from falls, or injury at time of discharge. Patient will perform bed mobility at: MOD I level of assist. Patient will complete transfers from bed to chair at: MOD I level of assist. Patient will ambulate: 100 feet, with MOD I assist, with LRD Patient will complete upper body dressing at: MOD I level of assist. Patient will complete lower body dressing at: MOD I level of assist. Patient will complete toileting at: MOD I level of assist. Patient will perform bathing at: MOD I level of assist. Patient will complete grooming at: MOD I level of assist. Patient will complete home management skills at: MOD I level of assist. Patient will achieve: 12 stairs, at MOD I assist Patient will have pain level of: of 3 or less Patient's skin will: remain intact, free from infection. Patient will receive: adequate nutrition. Discharge Planning Pt Prognosis for Sig. Practical Improv. w/in Reasonable Time: Good Estimated Length of stay (days): 14 Anticipated D/C Destination: Home with Home Health
[2019-08-14 21:00] VITALS: BP 93/59; PULSE 68; RESP 16; TEMP 36.6; O2SAT 98
[2019-08-15] MEDS: oxyCODONE 5 MG Tablet PO ×4 (02:21→18:34)
[2019-08-15] MEDS: Acetaminophen 500 MG Tablet 1000 MG PO ×2 (05:18→18:34)
[2019-08-15] MEDS: Levothyroxine 137 MCG Tablet PO (05:18)
[2019-08-15 06:04] LABS: AST(SGOT) 28 U/L (15-37); Alanine Aminotransfer ALT/SGPT 43 U/L (16-61); Albumin, Serum 3.1 g/dL (3.2-5.0); Alkaline Phosphatase 78 U/L (45-117); Anion Gap 4 (5-15); BUN 25 mg/dL (7-18); BUN/Creat Ratio 22.1 RATIO (10-20); Calcium,Total 8.7 mg/dL (8.5-10.1); Chloride 100 mmol/L (98-107); Creatinine, Serum 1.13 mg/dL (0.70-1.30); EST Glomerular Filtration Rate 67 mL/min (>60); Est Glom Filt Rate - Afr Amer 81 mL/min (>60); Estimated Creatinine Clearance 59.13 ml/min; Globulin 3.1 g/dL (2.2-4.2); Glucose 93 mg/dL (74-106); Magnesium 2.3 mg/dL (1.6-2.6); Phosphorus 3.2 mg/dL (2.5-4.9); Potassium 4.4 mmol/L (3.5-5.1); Protein, Total 6.2 g/dL (6.4-8.2); Sodium Level 134 mmol/L (136-145)
--- NOTE | 2019-08-15 06:07 | NURSING ---
Encouraged Pt several times to shower this am before therapy and told him they might not have time later to do so after therapy and he declined, Said he wanted to wait till later.
[2019-08-15 07:05] LABS: Hematocrit 36.4 % (40-54); Hemoglobin 11.9 g/dL (13.0-16.5); Mean Corp Hgb Conc 32.7 g/dL (32-36); Mean Corpuscular Hgb 30.5 pg (27.0-32.0); Mean Corpuscular Volume 93.3 fL (80-94); Mean Platelet Vol. 8.8 fl (6.2-12.0); Platelet Count 271 K/mm3 (150-450); RBC Distribution Width CV 13.9 % (11.6-14.6); RBC Distribution Width SD 47.5 fl (35.1-43.9); White Blood Count 7.7 K/mm3 (4.4-11.0)
[2019-08-15 08:02] VITALS: BP 101/49; PULSE 82; RESP 18; TEMP 36.9; O2SAT 97
[2019-08-15] MEDS: Aspirin E.C. 81 MG Tablet PO (08:24)
[2019-08-15] MEDS: Folic Acid 1 MG Tablet PO (08:24)
[2019-08-15] MEDS: Gabapentin 300 MG Capsule PO ×2 (08:24→16:41)
[2019-08-15 08:25] VITALS: O2SAT 97
--- NOTE | 2019-08-15 10:29 | CASEMGMT ---
Social Work IDT met with pt and daughter for Team meeting. Pt walking 150ft with FWW at CGA, CGA 4 steps. CGA to Min assist transfers, SBA toileting tasks, pt adhering to back precautions and will f/u Dr Melgoza on 08/18/2019 for staple removal. Pt recommending left AFO, will refer to [employer]. Explained insurance coverage, NRD 08/15/2019, continued stay not guaranteed. Will continue to follow. Joslyn Galloway Social work software developer intern Una Lozano, APPLIANCE PARTS COUNTER CLERK OCCUPATIONAL ANALYST
--- NOTE | 2019-08-15 12:34 | PN_ITS ---
Progress Note Patient was seen on team rounds today and his daughter Vandana was present. Afebile VSS Maintaining appropriate oxygen saturation on RA Oral intake is good Discussed with nursing - no problems that need addressed Reviewed the PT/OT notes Medication list reviewed. He states that his pain is well controlled. He has many questions about when he can go home, even after I told him it is a day by day thing and everybody is different. I also related that he would be discharged when the therapists feel he can be safe, he lives by himself. His goal is to ambulate without AD but, he is still requiring the FWW for safety. He has an appt with Dr. Melgoza this week to take out the sutures. Alert, NAD, talks a lot and has many stories He has been crying with the nurses and they have been spending extra time listening and counselling him.....He is telling the same story to multiple staff Lungs - CTA H-RRR, no gallop abd - soft, NT, ND no edema incision is intact, well coapted and without erythema or DC Impressions 1. Debility due to recent Lumbar laminectomy and fusion 2. suspected Depression - passed in April. will consider an antidepressant but, I would like to talk to him alone......he denies depression to me and there are 2 visitors in the room......will revisit this in the next 1- 2 days 3. RA Continue therapy. Code Visit Inpatient E&M: 24489 Subs Hosp L2
--- NOTE | 2019-08-15 13:38 | CASEMGMT ---
Social Work Reviewed and agreed with social work mechanical engineering intern documentation on this date. Una Lozano, MOLTEN IRON POURER BOILER/CHILLER TECHNICIAN
--- NOTE | 2019-08-15 13:49 | NURSING ---
spoke with Dr Renny Bryan office-no DVT prophylactic needed as long as pt is ambulatory and active with therapy
--- NOTE | 2019-08-15 16:22 | CHAPLAIN ---
Type of Pastoral Visit _x__ Initial Visit ___ Follow-up Visit ___ On-call Visit ___ General Patient Visit ___ Spiritual Assessment ___ Family Conference ___ Bereavement ___ Rapid Response ___ Code Blue ___ Other (describe below) Pastoral Care Referral From _x__ Patient ___ Family ___ Nurse ___ Physician ___ Owner/Operator ___ Rolloff Driver ___ Other (describe below) Sacrament/Intervention _x__ Active listening ___ Anointing ___ Presybeterian ___ Bereavement ___ Communion _x__ Yessi exploration ___ _x__ Life review _x__ Prayer ___ Reconciliation ___ Sacrament of Sick _x__ Supportive presence ___ Wedding ___ Other (describe below) Pastoral Comments patient was very talkative and welcoming of spiritual care; pt is newly and expresses some grief; pt has strong yessi in God and is connected to sabianism support; pt has family support as well
[2019-08-15 20:58] VITALS: BP 116/60; PULSE 88; RESP 16; TEMP 36.5; O2SAT 97
[2019-08-16] MEDS: oxyCODONE 5 MG Tablet PO ×5 (04:03→22:51)
[2019-08-16] MEDS: Acetaminophen 500 MG Tablet 1000 MG PO ×3 (04:03→22:51)
[2019-08-16] MEDS: Levothyroxine 137 MCG Tablet PO (05:05)
[2019-08-16 07:00] VITALS: BP 97/56; PULSE 74; RESP 16; TEMP 36.6; O2SAT 97
[2019-08-16 07:22] VITALS: O2SAT 98
[2019-08-16] MEDS: Folic Acid 1 MG Tablet PO (08:20)
[2019-08-16] MEDS: Gabapentin 300 MG Capsule PO ×2 (08:20→17:06)
[2019-08-16] MEDS: Aspirin E.C. 81 MG Tablet PO (08:20)
--- NOTE | 2019-08-16 13:33 | CASEMGMT ---
Social Work Spoke with [facility] about AFO for pt. Tra[facility]ian states wont be able to be fitted until pt has DC date. Notified pt of above, pt understandable. Joslyn Galloway, Social work policy intern Una Lozano, SHIP CAPTAIN SCAFFOLD WORKER
[2019-08-16 19:38] VITALS: BP 120/63; PULSE 67; RESP 18; TEMP 36.6; O2SAT 99
[2019-08-16] MEDS: Senna/Docusate Sodium 1 Tablet 2 TABLET PO (20:24)
[2019-08-17] MEDS: Levothyroxine 137 MCG Tablet PO (05:04)
[2019-08-17] MEDS: oxyCODONE 5 MG Tablet PO ×4 (05:04→21:59)
[2019-08-17] MEDS: Gabapentin 300 MG Capsule PO ×2 (08:02→17:46)
[2019-08-17] MEDS: Folic Acid 1 MG Tablet PO (08:02)
[2019-08-17] MEDS: Aspirin E.C. 81 MG Tablet PO (08:02)
[2019-08-17] MEDS: Senna/Docusate Sodium 1 Tablet 2 TABLET PO (08:03)
[2019-08-17 08:56] VITALS: BP 119/69; PULSE 65; RESP 16; TEMP 36.3; O2SAT 99
[2019-08-17 19:30] VITALS: BP 112/58; PULSE 69; RESP 16; TEMP 36.8; O2SAT 96
--- NOTE | 2019-08-18 03:44 | NURSING ---
REVIEWED AND AGREE WITH E BUSINESS SPECIALIST'S FUNCTIONAL ASSESSMENT AND HANDOFF CHARTING.
[2019-08-18] MEDS: Levothyroxine 137 MCG Tablet PO (05:00)
[2019-08-18] MEDS: oxyCODONE 5 MG Tablet PO ×3 (05:01→21:13)
--- NOTE | 2019-08-18 06:31 | NURSING ---
upon giving am meds at 0500 pt refuses any am care. pt ambulates to restroom with only complaints of pain. requests to do am care at a later time.
[2019-08-18 07:45] VITALS: BP 130/65; PULSE 66; RESP 18; TEMP 36.4; O2SAT 95
[2019-08-18] MEDS: Acetaminophen 500 MG Tablet 1000 MG PO (07:52)
[2019-08-18] MEDS: Folic Acid 1 MG Tablet PO (07:52)
[2019-08-18] MEDS: Gabapentin 300 MG Capsule PO ×2 (07:52→16:33)
[2019-08-18] MEDS: Aspirin E.C. 81 MG Tablet PO (07:52)
--- NOTE | 2019-08-18 09:05 | NURSING ---
LATISHA to appt with family.
[2019-08-18] MEDS: Senna/Docusate Sodium 1 Tablet 2 TABLET PO ×2 (15:11→21:11)
[2019-08-18] MEDS: Magnesium Hydroxide 30 ML UDC PO (15:11)
[2019-08-18] MEDS: Polyethylene Glycol 3350 17 GM PACKET PO (15:15)
--- NOTE | 2019-08-18 18:54 | PCM.PN.BLA ---
Progress Note AF VSS maintaining a appropriate O2 sat on RA He went to see the orthopedic surgeon today and was very tired upon return and refused PT. Pain is adequately controlled. Good bowel function. He had a time 2 days ago when his knee buckled with ambulation but, no recurrence. I reviewed the PT and OT notes. He has not achieved his short term or correction goal. Additional therapy is recommended. alert, looks tired, NAD, very talkative......I think sometimes he is so engaged in telling jokes and stories that he is not focusing on what he is supposed to do in therapy. Lungs - CTA with good air exchange Heart - RRR, no gallop abd - soft, NT, ND, normal BS's in all quadrants no rashes Incision is intact and without erythema, DC or increased warmth to touch Impressions 1. Debility due to Lumbar laminectomy and fusion - continue therapy. Making progress but, not ready to safely transition home yet. Code Visit Inpatient E&M: 29126 Subs Hosp L1
[2019-08-18 21:15] VITALS: BP 108/58; PULSE 71; RESP 16; TEMP 36.8; O2SAT 96
[2019-08-19] MEDS: Levothyroxine 137 MCG Tablet PO (05:43)
[2019-08-19] MEDS: Bisacodyl 10 MG Suppository RECTAL (05:55)
[2019-08-19] MEDS: oxyCODONE 5 MG Tablet PO ×2 (05:59→13:01)
[2019-08-19] MEDS: Acetaminophen 500 MG Tablet 1000 MG PO ×2 (06:50→14:50)
[2019-08-19] MEDS: Folic Acid 1 MG Tablet PO (07:34)
[2019-08-19] MEDS: Aspirin E.C. 81 MG Tablet PO (07:34)
[2019-08-19] MEDS: Gabapentin 300 MG Capsule PO ×2 (07:34→17:21)
[2019-08-19 08:03] VITALS: BP 107/58; PULSE 74; RESP 16; TEMP 36.8; O2SAT 97
--- NOTE | 2019-08-19 15:48 | CT_ITS ---
STUDY: CT BRAIN WITHOUT CONTRAST REASON FOR EXAM: Male, 78 years old. Altered mental status, lumbar laminectomy RADIATION DOSAGE (If Supplied By Facility): CTDIvol = ( 44.99 ) mGy, DLP = ( 762.36 ) mGycm TECHNIQUE: Transaxial CT imaging of the brain was performed without administration of intravenous contrast material. Individualized dose optimization techniques were used for this CT. COMPARISON: June 28, 2018 CT head FINDINGS: Normal soft tissue structures. Normal calvarium. There is mild cerebral atrophy with widening of the extra-axial spaces and ventricular dilatation. Normal white matter tracts of the cerebral hemispheres. There are small punctate calcifications of the basal ganglia which are seen in the aging brain as a normal variant. Normal brainstem. There is mild cerebellar atrophy. There is no intracranial hemorrhage. There are no findings of an acute ischemic infarction. There is stable maxillary mucosal retention cyst which is partially calcified. There are stable lucencies within the calvarium compatible pacchionian granulation tissue. There is calcification of the cavernous carotid arteries and vertebral arteries. CT/Brain/Head without Contrast IMPRESSION: Stable head CT. Atrophy and chronic involutional change and no evidence of acute hemorrhage infarct or edema. Electronically Signed: Bianca Pate MD at 16:49 EST Tel , Service support ,
[2019-08-19 15:51] LABS: Bedside Glucose 74 mg/dL (70-110)
[2019-08-19 15:55] VITALS: BP 126/72; PULSE 78; RESP 17; TEMP 36.6; O2SAT 95
--- NOTE | 2019-08-19 15:55 | NURSING ---
Due to patients sudden change in LOC, Dr. Coronado assessed and new orders received and daughter present at this time and aware. Daughter stated her father has had periods of confusion from time to time. BS 74 and VS WNL.
[2019-08-19 16:20] LABS: Absolute Lymphocyte Count 2.05 X10^3/uL (0.83-4.51); Absolute Neutrophil Count 4.6 X10^3/uL (2.0-7.7); Basophil# 0.13 X10^3/uL; Basophil% 1.6 % (0-1); Eosinophil# 0.62 X10^3/uL; Eosinophils% 7.7 % (0-5); Hemoglobin 11.4 g/dL (13.0-16.5); Lymphocyte # 2.05 X10^3/ul (4.0); Lymphocyte % 25.5 % (19-41); Mean Corp Hgb Conc 33.5 g/dL (32-36); Mean Corpuscular Volume 92.4 fL (80-94); Monocyte# 0.58 X10^3/uL; Monocyte% 7.2 % (0-10); NRBC Flagged by Analyzer 0 % (0-5); Neutrophil # 4.64 X10^3/uL (2.7-7.7); Neutrophil % 57.6 % (47-70); Platelet Count 254 K/mm3 (150-450); RBC Distribution Width CV 13.4 % (11.6-14.6); RBC Distribution Width SD 44.6 fl (35.1-43.9); Red Blood Count 3.68 M/mm3 (4.6-6.2); White Blood Count 8.1 K/mm3 (4.4-11.0)
--- NOTE | 2019-08-19 16:42 | PN_ITS ---
Progress Note I was asked by nursing to see the pt for acute confusion after awakening from a nap. He told me that he had been dreaming that he was riding on the range and outlaws were chasing me. He denied a CABELLO. The BP was 126/72 with a heart rate of 78. Pulse ox was 96% on room air. He did not appear to be in any distress. Alert, oriented to month, year, place, knew the name of the president. He did not know why he is at [facility] and was unaware that he had had surgery. NIH stroke score was 0. He denied headache. Lungs-clear to auscultation with no wheezes, rhonchi or rails. He was not tachypneic and had no conversational dyspnea. Heart-regular rate and rhythm with no ectopy Abdomen-flat, soft, nontender, nondistended, bowel sounds heard in all 4 quadrants. No peripheral edema, no cyanosis, no calf tenderness Impressions 1. Acute onset of altered mental status-stat noncontrasted CT brain ordered. CBC with differential and CMP ordered. Will notify the family. TIA, CVA ? Following the pt being taken for CT his daughter showed up and she related that he has been having these episodes of sudden confusion for a few years now and attributes it to chemo brain? He has never had a seizure and the sx last up to [address] scan shows no acute findings per my review...awaiting the radiology report. Lab is essentially unchanged. No signs infection and sx resolved within 30 minutes. No focal neurologic deficits, only altered mental status. No further work up indicated. Recommended to the dtr that her father see a neurologist at some point after DC from the rehab unit. STROKE Vital Signs/Narrative: Vital Signs Temp Pulse Resp BP Pulse Ox 08/19/19 15:55 97.8 F 78 17 126/72 H 95 Code Visit Inpatient E&M: 78654 Subs Hosp L2
[2019-08-19 16:51] LABS: Anion Gap 4 (5-15); BUN 27 mg/dL (7-18); BUN/Creat Ratio 23.5 RATIO (10-20); Calcium,Total 8.9 mg/dL (8.5-10.1); Chloride 105 mmol/L (98-107); Creatinine, Serum 1.15 mg/dL (0.70-1.30); EST Glomerular Filtration Rate 65 mL/min (>60); Est Glom Filt Rate - Afr Amer 79 mL/min (>60); Estimated Creatinine Clearance 58.11 ml/min; Glucose 99 mg/dL (74-106); Potassium 4.2 mmol/L (3.5-5.1); Sodium Level 136 mmol/L (136-145)
[2019-08-19 19:43] VITALS: BP 132/69; PULSE 73; RESP 14; TEMP 36.1; O2SAT 96
[2019-08-20] MEDS: Levothyroxine 137 MCG Tablet PO (05:59)
[2019-08-20] MEDS: oxyCODONE 5 MG Tablet PO ×2 (06:05→13:06)
[2019-08-20] MEDS: Gabapentin 300 MG Capsule PO ×2 (08:25→16:16)
[2019-08-20] MEDS: Folic Acid 1 MG Tablet PO (08:25)
[2019-08-20] MEDS: Aspirin E.C. 81 MG Tablet PO (08:25)
[2019-08-20] MEDS: Polyethylene Glycol 3350 17 GM PACKET PO (08:27)
[2019-08-20] MEDS: Senna/Docusate Sodium 1 Tablet 2 TABLET PO (08:27)
[2019-08-20 09:26] VITALS: BP 109/69; PULSE 73; RESP 16; TEMP 36.6; O2SAT 96
--- NOTE | 2019-08-20 16:07 | PN_ITS ---
Patient Problems: Active and Suspected Problems (Last Reviewed 08/13/19 @ 13:26 by Zaira Coronado DO) Status post lumbar laminectomy (Acute) S/P lumbar fusion (Acute) Reason for Visit: rehab Subjective: He said he had another 1 of his confusion spells. Patient states that he was in his normal state of health and had this hot flash to go over him and the next thing he knows that he is being asked questions not knowing the answers to where he is, his recent surgery etc. States he has been having these spells for some time has been witnessed by family where the patient is just staring off and then when he comes to is confused for period of time. States that he has had imaging, including CAT scans and MRIs of all been negative but states that he has never had an EEG before. Patient denies any history of seizures though his did have a history of tonic-clonic seizures. He states that these episodes began after receiving chemotherapy. He denies any history of brain metastases due to his lymphoma. Vitals/I&O's: Vital Signs Temp Pulse Resp BP Pulse Ox 36.6 C 73 16 109/69 96 08/20/19 09:26 08/20/19 09:26 08/20/19 09:26 08/20/19 09:26 08/20/19 09:26 Oxygen Delivery Method Room Air Weight: 91.7 kg Body Mass Index (BMI) 29.4 Intake and Output for Last 24 Hours 08/18/19 08/19/19 08/20/19 23:59 23:59 23:59 Intake Total 1000 / 1000 1140 / 1140 440 / 440 Output Total 700 / 700 700 / 700 300 / 300 Balance 300 / 300 440 / 440 140 / 140 General: Alert, No apparent distress HEENT: Atraumatic, Normocephalic Skin: - - Lower lumbar skin incision is well approximated, wade removed. No concern for cellulitis nor abscess. Psych/Mental Status: Normal Affect, Appropriate Laboratory Results 08/19/19 16:10: WBC 8.1, RBC 3.68 L, Hgb 11.4 L, Hct 34.0 L, MCV 92.4, MCH 31.0, MCHC 33.5, RDW Std Deviation 44.6 H, RDW Coeff of Po 13.4, Plt Count 254, MPV 8.0, Immature Gran % (Auto) 0.400, Neut % (Auto) 57.6, Lymph % (Auto) 25.5, [place] % (Auto) 7.2, Eos % (Auto) 7.7 H, Baso % (Auto) 1.6 H, Absolute Neuts (auto) 4.6, Absolute Lymphs (auto) 2.05, Nucleated RBC % 0 08/19/19 16:10: Sodium 136, Potassium 4.2, Chloride 105, Carbon Dioxide 27.0, Anion Gap 4 L, BUN 27 H, Creatinine 1.15, Estim Creat Clear Calc 58.11, Est GFR (MDRD) Af Amer 79, Est GFR (MDRD) Non-Af 65, BUN/Creatinine Ratio 23.5 H, Glucose 99, Calcium 8.9 Current Medications Acetaminophen (Tylenol) 1,000 mg PO Q8H PRN PRN PRN Reason: Pain Score 1-10/10 Last Admin: 08/19/19 14:50 Dose: 1,000 mg Documented by: Aspirin (Ecotrin) 81 mg PO DAILY@0800 PENDING SALE TO [facility] Last Admin: 08/20/19 08:25 Dose: 81 mg Documented by: Bisacodyl (Dulcolax) 10 mg RECTAL .PRN X 1 PRN PRN Reason: Constipation Last Admin: 08/19/19 05:55 Dose: 10 mg Documented by: Cholecalciferol (Vitamin D) 1,000 unit PO DAILY PENDING SALE TO [facility] Last Admin: 08/20/19 08:25 Dose: 1,000 unit Documented by: Folic Acid (Folic Acid) 1 mg PO DAILY@0800 PENDING SALE TO [facility] Last Admin: 08/20/19 08:25 Dose: 1 mg Documented by: Gabapentin (Neurontin) 300 mg PO BIDCM PENDING SALE TO [facility] Last Admin: 08/20/19 08:25 Dose: 300 mg Documented by: Levothyroxine Sodium (Synthroid) 137 mcg PO DAILY@0600 PENDING SALE TO [facility] Last Admin: 08/20/19 05:59 Dose: 137 mcg Documented by: Magnesium Hydroxide (Milk Of Magnesia) 30 ml PO .PRN X 1 PRN PRN Reason: Constipation Last Admin: 08/18/19 15:11 Dose: 30 ml Documented by: Methotrexate (Methotrexate) 10 mg PO MARTINEZ@0800,1600 PENDING SALE TO [facility] Last Admin: 08/14/19 16:49 Dose: 10 mg Documented by: Oxycodone HCl (Oxyir) 5 mg PO Q4H PRN PRN PRN Reason: Pain Score 1-10/10 Last Admin: 08/20/19 13:06 Dose: 5 mg Documented by: Polyethylene Glycol (Miralax) 17 gm PO DAILY PENDING SALE TO [facility] Last Admin: 08/20/19 08:27 Dose: 17 gm Documented by: Senna/Docusate Sodium (Senokot-S, Dolores-Colace) 2 tablet PO BID PENDING SALE TO [facility] Last Admin: 08/20/19 08:27 Dose: 2 tablet Documented by: Medical Necessity - Tobacco Use Smoking Status: Never smoker Tobacco Use: Non-smoker Assessment/Plan All Active Problems (Last Reviewed 08/13/19 @ 13:26 by Zaira Coronado DO) Status post lumbar laminectomy (Acute) S/P lumbar fusion (Acute) Confusion (Resolved) Diffuse large B cell lymphoma (Resolved) Speech disturbance (Resolved) TGA (transient global amnesia) (Resolved) TIA (transient ischemic attack) (Resolved) Thyroid cancer (Resolved) 1. Transient confusion * Unclear of the etiology but given his description, I would be concerned for this being absence seizures * I advised the patient not to drive until he is further cleared by neurology, recommend outpatient follow-up with neurology. And all think these are simple syncopal episodes though the hot flashing would certainly suggest as such but I would not expect him to have the confusion that would persist immediately following. * Will order an EEG * Recommend neurology follow-up 2. Status post laminectomy * Patient doing well postoperatively * Wound is healing nicely. * Follow-up with spine surgery. * Continue with rehab services Greater than 35 minutes of which greater than 50% of time was discussing with the patient about these transient confusion episodes and my concern for this being possibly absence seizures
[2019-08-20 19:25] VITALS: BP 130/67; PULSE 67; RESP 16; TEMP 36.6; O2SAT 97
[2019-08-20] MEDS: Acetaminophen 500 MG Tablet 1000 MG PO (21:50)
[2019-08-20 22:00] VITALS: O2SAT 97
[2019-08-21] MEDS: Levothyroxine 137 MCG Tablet PO (05:56)
[2019-08-21] MEDS: Methotrexate 2.5 MG Tablet 10 MG PO ×2 (08:11→16:14)
[2019-08-21 09:19] VITALS: BP 105/69; PULSE 73; RESP 18; TEMP 36.6; O2SAT 95
[2019-08-21] MEDS: Folic Acid 1 MG Tablet PO (09:46)
[2019-08-21] MEDS: Aspirin E.C. 81 MG Tablet PO (09:46)
[2019-08-21] MEDS: Gabapentin 300 MG Capsule PO ×2 (09:47→17:23)
[2019-08-21] MEDS: Senna/Docusate Sodium 1 Tablet 2 TABLET PO ×2 (09:47→20:25)
[2019-08-21 10:00] VITALS: PULSE 80
[2019-08-21 19:47] VITALS: BP 116/75; PULSE 67; RESP 18; TEMP 36.8; O2SAT 98
[2019-08-21 20:15] VITALS: PULSE 67; RESP 18; O2SAT 98
[2019-08-21] MEDS: Acetaminophen 500 MG Tablet 1000 MG PO (20:25)
--- NOTE | 2019-08-22 03:42 | NURSING ---
Reviewed and agree with WHITE METAL CASTER documentation and charting.
[2019-08-22] MEDS: Levothyroxine 137 MCG Tablet PO (06:01)
[2019-08-22] MEDS: Acetaminophen 500 MG Tablet 1000 MG PO (06:01)
[2019-08-22 07:39] VITALS: BP 99/65; PULSE 84; RESP 16; TEMP 36.4; O2SAT 94
[2019-08-22] MEDS: oxyCODONE 5 MG Tablet PO ×2 (07:42→20:31)
[2019-08-22] MEDS: Aspirin E.C. 81 MG Tablet PO (07:42)
[2019-08-22] MEDS: Gabapentin 300 MG Capsule PO ×2 (07:42→17:05)
[2019-08-22] MEDS: Folic Acid 1 MG Tablet PO (07:42)
--- NOTE | 2019-08-22 08:17 | PN_ITS ---
Progress Note Danie was seen on TEAM rounds today. His dtr Alda was present for rounds Afebile VSS Maintaining appropriate oxygen saturation on RA Oral intake is fair Discussed with nursing - no problems that need addressed Reviewed the PT/OT notes Medication list reviewed. Danie was seen over the weekend by Dr. Grady who ordered a Telestroke consult and EEG. The results showed an abnormal EEG for age due to the presence of intermittent right temporoparietal irritability. This finding could serve as a substrate for development of clinical epileptiform activities. There were no captured events. No further episodes since Thursday. He does not remember me seeing him and doing a neuro exam on Thursday. He told Dr. Grady and myself that he knows when this is going to happen. He gets a hot flush and knows he has to lay down. Tells me that he has never had a grand Mal seizure but, he can not recall the events. Alert, oriented X 3 Lungs -CTA Heart-regular rate and rhythm, no gallop Abdomen-soft, nontender, nondistended, bowel sounds heard in all 4 quadrants, good bowel function, last bowel movement 08/22/2019 No focal neurologic findings Impressions 1. Debility secondary to recent lumbosacral decompression and fusion 2. Focal seizures abnormal EEG-start lamotrigine 25 mg daily. Will need to follow-up with neurology. I instructed both the patient and his daughter that he is not to drive or ride a horse until he is 6 months seizure free. Will make him and appt with the new neurologist at [facility] post DC 3. Subclavian stenosis? BP is always lower when taken in the right arm. Will check simultaneous BP's in both UE's Start Lamotrigine 25 mg daily. STROKE Vital Signs/Narrative: Vital Signs Temp Pulse Resp BP Pulse Ox 08/22/19 07:39 97.6 F L 84 16 99/65 94 Code Visit Inpatient E&M: 14107 Subs Hosp L2
[2019-08-22] MEDS: lamoTRIgine 25 MG Tablet PO (10:45)
--- NOTE | 2019-08-22 11:32 | CASEMGMT ---
Social Work IDT met with patient and daughter for Team Meeting. Discussed patient's progress in therapy. Pt is SBA to CGA for transfers and be mobility, CGA with quad cane walking 165ft, 6 steps with 2 HR. Pt is SBA for all ADLs using adaptive equipment with min. cues to adhere to back precuations. Incision has healed well and pain is controlled. Pt has has some intermittent confusion - scan ordered and determined focal seizures. Physician explained starting on medication and no driving until 6 months free of seizures. Will scheduled appt with neurologist after DC. May be unsafe to be at home alone. Explained insurance update 08/30 and continued stay is not guaranteed. Will ReTeam next week and continue to follow. Una Lozano, [employer] MEDICAL [employer]GEANT
[2019-08-22 19:39] VITALS: BP 115/74; PULSE 75; RESP 14; TEMP 36.4; O2SAT 97
[2019-08-22 20:15] VITALS: PULSE 75; RESP 14; O2SAT 97
--- NOTE | 2019-08-23 02:48 | NURSING ---
Reviewed and agree with STOCK PARTS INSPECTOR documentation & charting.
[2019-08-23] MEDS: Levothyroxine 137 MCG Tablet PO (05:41)
[2019-08-23 07:00] VITALS: BP 102/63; BP 113/65; PULSE 72; RESP 17; TEMP 36.7; O2SAT 97
[2019-08-23] MEDS: lamoTRIgine 25 MG Tablet PO (08:08)
[2019-08-23] MEDS: Gabapentin 300 MG Capsule PO ×2 (08:08→16:54)
[2019-08-23] MEDS: Aspirin E.C. 81 MG Tablet PO (08:09)
[2019-08-23] MEDS: Folic Acid 1 MG Tablet PO (08:09)
[2019-08-23] MEDS: oxyCODONE 5 MG Tablet PO (08:15)
[2019-08-23 19:50] VITALS: BP 119/68; PULSE 70; RESP 18; TEMP 36.7; O2SAT 98
[2019-08-24] MEDS: Acetaminophen 500 MG Tablet 1000 MG PO (01:55)
--- NOTE | 2019-08-24 04:16 | NURSING ---
Reviewed and agree with CLAY MOLDER documentation and charting.
[2019-08-24] MEDS: Levothyroxine 137 MCG Tablet PO (06:04)
[2019-08-24 07:00] VITALS: BP 124/70; PULSE 80; RESP 16; TEMP 36.4; O2SAT 94
--- NOTE | 2019-08-24 07:42 | CASEMGMT ---
Social Work Pt requesting to DC home 08/27. Pt received home exercise programs and chooses not to have continued therapy - IDT agreeable. Pt will purchase quad cane. Faxed referral to [employer] [facility] for left AFO with DC date. No further needs. Plan: DC home alone 08/27, no needs. Una Lozano, HUMAN RESOURCES TALENT MANAGER WELDING PROCESS ENGINEER
[2019-08-24] MEDS: Folic Acid 1 MG Tablet PO (08:07)
[2019-08-24] MEDS: Gabapentin 300 MG Capsule PO ×2 (08:07→17:18)
[2019-08-24] MEDS: Aspirin E.C. 81 MG Tablet PO (08:07)
[2019-08-24] MEDS: oxyCODONE 5 MG Tablet PO (08:07)
[2019-08-24] MEDS: lamoTRIgine 25 MG Tablet PO (08:07)
--- NOTE | 2019-08-24 11:44 | PCM.PN.BLA ---
Progress Note Afebile VSS Maintaining appropriate oxygen saturation on RA Oral intake is fair. Weight has increased from 202 pounds and 2.6 ounces at admission to rehab to 205 pounds and 14-1/2 ounces today. Appetite is good but fluid intake is fair. Discussed with nursing - no problems that need addressed Reviewed the PT/OT notes Medication list reviewed. He is tolerating the lamotrigine with no adverse side effects. Discussed with the social media community manager and the patient will be discharging home on Sunday 08/27. Alert, Pleasant, NAD Lungs - CTA H RRR without gallop abd - soft, NT, ND, BS's present no peripheral edema no rash Impression 1. Debility secondary to recent lumbar laminectomy and fusion and progressing well in physical therapy and will discharge home this coming 08/27/2019. 2. Focal seizures-started on Lamictal 25 mg daily and is tolerating this without any adverse side effects. The dose should be increased to 50 mg in 2 weeks. 3. Normochromic normocytic anemia-stable 4. Hyponatremia-resolved 5. Elevated BUN/creatinine ratio -encouraged patient to increase his fluid intake. Will check orthostatics Code Visit Inpatient E&M: 16609 Subs Hosp L1
[2019-08-24] MEDS: Senna/Docusate Sodium 1 Tablet 2 TABLET PO ×2 (12:04→21:08)
[2019-08-24 13:30] VITALS: BP 110/64; BP 117/77; BP 130/78; PULSE 75; PULSE 80; PULSE 81
[2019-08-24 20:55] VITALS: BP 112/62; PULSE 72; RESP 18; TEMP 36.5; O2SAT 99
--- NOTE | 2019-08-25 00:37 | NURSING ---
REVIEWED AND AGREE WITH PHLEBOTOMY LAB ASSISTANT'S FUNCTIONAL ASSESSMENT AND HANDOFF CHARTING.
[2019-08-25] MEDS: Levothyroxine 137 MCG Tablet PO (06:14)
[2019-08-25] MEDS: Folic Acid 1 MG Tablet PO (07:49)
[2019-08-25] MEDS: lamoTRIgine 25 MG Tablet PO (07:49)
[2019-08-25] MEDS: Polyethylene Glycol 3350 17 GM PACKET PO (07:49)
[2019-08-25] MEDS: Gabapentin 300 MG Capsule PO ×2 (07:49→17:20)
[2019-08-25] MEDS: Aspirin E.C. 81 MG Tablet PO (07:49)
[2019-08-25] MEDS: Senna/Docusate Sodium 1 Tablet 2 TABLET PO (07:50)
[2019-08-25 08:09] VITALS: BP 111/65; PULSE 71; RESP 12; TEMP 36.6; O2SAT 99
[2019-08-25 20:20] VITALS: BP 114/61; PULSE 70; RESP 18; TEMP 36.8; O2SAT 100
[2019-08-26] MEDS: Levothyroxine 137 MCG Tablet PO (06:44)
[2019-08-26] MEDS: Folic Acid 1 MG Tablet PO (07:59)
[2019-08-26] MEDS: lamoTRIgine 25 MG Tablet PO (07:59)
[2019-08-26] MEDS: Gabapentin 300 MG Capsule PO ×2 (07:59→16:05)
[2019-08-26] MEDS: Aspirin E.C. 81 MG Tablet PO (07:59)
[2019-08-26 08:03] VITALS: BP 113/64; PULSE 70; RESP 18; TEMP 36.3; O2SAT 97
[2019-08-26 22:00] VITALS: BP 111/55; PULSE 74; RESP 18; TEMP 36.6; O2SAT 95
[2019-08-27] MEDS: Levothyroxine 137 MCG Tablet PO (06:14)
[2019-08-27 07:47] VITALS: BP 113/65; PULSE 66; RESP 18; TEMP 36.5; O2SAT 97
[2019-08-27] MEDS: Aspirin E.C. 81 MG Tablet PO (07:51)
[2019-08-27] MEDS: Gabapentin 300 MG Capsule PO (07:51)
[2019-08-27] MEDS: Folic Acid 1 MG Tablet PO (07:51)
[2019-08-27] MEDS: lamoTRIgine 25 MG Tablet PO (07:51)
--- NOTE | 2019-08-27 13:20 | PCM.DC ---
- Discharge Diagnoses Current Active Problems: Current Active and Chronic Problems (Last Reviewed 08/13/19 @ 13:26 by Zaira Coronado DO) Status post lumbar laminectomy (Acute) S/P lumbar fusion (Acute) You will use the following diet at home:: Cardiac Your food should be the consistency of: Regular Your liquids should be the consistency of: Regular/Thin Discharge Activity: May Not Drive - You can not drive until you see the neurologist and he releases you to drive again. You had a seizure in the hospital and you have an abnormal EEG. You should not driven until you have been seizure free for 6 months. The episodes you have periodically where you feel hot and then can not remember anything for 15-30 minutes are most likely focal seizures. You have been started on an antiepileptic drug called Lamotrigine. You are currently on a very low dose...this medicine has to be gradually increased., May Shower Weight Bearing Status: Full weight bearing Call your doctor if you observe: Fever of 101 or Higher, Inability to urinate, Inability to have a bowel movement, Shortness of breath, Dizziness, Fainting spells, Swelling in the ankles, Chest pain, Calf discomfort, Uncontrolled pain Instructions: Epilepsy: How Seizures Affect the Body, Self-Care for Epilepsy Additional Instructions: 1. It has been a pleasure having you on the rehab unit [facility]. I hope that you have been happy with your care. If we can ever assist you in the future we would be happy to have you back. 2. I have faxed your prescriptions to [facility] and they should be ready for when you get there. Pending Tests on Discharge: none Allergies/Adverse Reactions: Allergies Iodinated Contrast Media [CONTRASTS] Allergy (Intermediate, Verified 05/18/19 14:16) Rash Medications to take at Discharge Cholecalciferol (VIT D3) [Vitamin D3] 1,000 unit PO DAILY 06/06/15 Aspirin [Aspirin EC] 81 mg PO DAILY 11/07/16 Levothyroxine [Synthroid] 137 mcg PO DAILY 11/11/16 Folic Acid 1 mg PO DAILY@0800 08/12/19 Acetaminophen [Tylenol] 1,000 mg PO Q8H PRN PRN tablet 08/27/19 Gabapentin [Neurontin] 300 mg PO BIDCM capsule 08/27/19 Lamotrigine [Lamictal Chew] 25 mg PO DAILY #50 tab 02/15/20 Methotrexate 10 mg PO MARTINEZ@0800,1600 tablet 08/27/19 Oxycodone [Oxyir] 5 mg PO Q4H PRN PRN 7 Days #14 tablet 08/27/19 Polyethylene Glycol 3350 [Miralax] 17 gm PO DAILY packet 08/27/19 The following prescriptions were given: Lamotrigine [Lamictal Chew] 25 mg PO DAILY #50 tab Transmission Status: Pending to [facility] #[facility] Oxycodone [Oxyir] 5 mg PO Q4H PRN PRN 7 Days #14 tablet PRN Reason: Pain Score 1-10/10 Transmission Status: Sent to [facility] #[facility] Primary Care Physician: Branden Velasquez MD [Primary Care Provider] - Please follow up with your Primary Care Physician in: 1 week Test Results: Test results from this visit will be discussed in further detail at your follow-up appointment, if applicable. Please Follow Up With: Dr Hanks/ Dr Enrique Please Follow Up With: Dr Renny Melgoza When: as previously instructed Proposed Discharge Date: 08/27/19
--- NOTE | 2019-08-27 13:36 | PCM.DC.SUM ---
Discharge Date and Diagnosis Date of Admission: 08/12/19 Date of Discharge: 08/27/19 - Primary Discharge Diagnosis Active and Suspected Problems (Last Reviewed 08/13/19 @ 13:26 by Zaira Coronado DO) Status post lumbar laminectomy (Acute) S/P lumbar fusion (Acute) Physical debility secondary to surgery Focal seizures (Suspected) Abnormal EEG (Acute) Hyponatremia (Acute)-resolved Normochromic normocytic anemia (Acute) unknown if this is acute due to blood loss from the surgery or if this is chronic due to RA - Secondary Discharge Diagnosis Chronic Problems (Last Reviewed 08/13/19 @ 13:26 by Zaira Coronado DO) Rheumatoid arthritis (Chronic) Hypothyroidism (Chronic) BPH (benign prostatic hyperplasia) (Chronic) Fe deficiency anemia (Chronic) Paroxysmal atrial fibrillation (Chronic) Atherosclerotic heart disease of [place] coronary artery without angina pectoris (Chronic) Mild aortic stenosis Hospital Course and Treatment Imaging Results: Clinical Impression(s) from Imaging Studies Brain CT 08/19/19 15:48 IMPRESSION: Stable head CT. Atrophy and chronic involutional change and no evidence of acute hemorrhage infarct or edema. Electronically Signed: Bianca Pate MD at 16:49 EST Tel , Service support , Laboratory Tests 08/19/19 08/19/19 08/19/19 Range/Units 16:10 16:10 15:46 WBC 8.1 (4.4-11.0) K/mm3 RBC 3.68 L (4.6-6.2) M/mm3 Hgb 11.4 L (13.0-16.5) g/dL Hct 34.0 L (40-54) % MCV 92.4 (80-94) fL MCH 31.0 (27.0-32.0) pg MCHC 33.5 (32-36) g/dL RDW Std Deviation 44.6 H (35.1-43.9) fl RDW Coeff of Po 13.4 (11.6-14.6) % Plt Count 254 (150-450) K/mm3 MPV 8.0 (6.2-12.0) fl Immature Gran % (Auto) 0.400 (0.0-0.9) % Neut % (Auto) 57.6 (47-70) % Lymph % (Auto) 25.5 (19-41) % Benzie % (Auto) 7.2 (0-10) % Eos % (Auto) 7.7 H (0-5) % Baso % (Auto) 1.6 H (0-1) % Absolute Neuts (auto) 4.6 (2.0-7.7) X10^3/uL Absolute Lymphs (auto) 2.05 (0.83-4.51) X10^3/uL Nucleated RBC % 0 (0-5) % Sodium 136 (136-145) mmol/L Potassium 4.2 (3.5-5.1) mmol/L Chloride 105 (98-107) mmol/L Carbon Dioxide 27.0 (21.0-32.0) mmol/L Anion Gap 4 L (5-15) BUN 27 H (7-18) mg/dL Creatinine 1.15 (0.70-1.30) mg/dL Estim Creat Clear Calc 58.11 ml/min Est GFR (MDRD) Af Amer 79 (>60) mL/min Est GFR (MDRD) Non-Af 65 (>60) mL/min BUN/Creatinine Ratio 23.5 H (10-20) RATIO Glucose 99 (74-106) mg/dL Calcium 8.9 (8.5-10.1) mg/dL Phosphorus (2.5-4.9) mg/dL Magnesium (1.6-2.6) mg/dL Total Bilirubin (0.20-1.00) mg/dL AST (15-37) U/L ALT (16-61) U/L Alkaline Phosphatase (45-117) U/L Total Protein (6.4-8.2) g/dL Albumin (3.2-5.0) g/dL Globulin (2.2-4.2) g/dL Albumin/Globulin Ratio (0.9-2.4) RATIO POC Glucose 74 (70-110) mg/dL 08/15/19 08/15/19 Range/Units 05:25 05:25 WBC 7.7 (4.4-11.0) K/mm3 RBC 3.90 L (4.6-6.2) M/mm3 Hgb 11.9 L (13.0-16.5) g/dL Hct 36.4 L (40-54) % MCV 93.3 (80-94) fL MCH 30.5 (27.0-32.0) pg MCHC 32.7 (32-36) g/dL RDW Std Deviation 47.5 H (35.1-43.9) fl RDW Coeff of Po 13.9 (11.6-14.6) % Plt Count 271 (150-450) K/mm3 MPV 8.8 (6.2-12.0) fl Immature Gran % (Auto) (0.0-0.9) % Neut % (Auto) (47-70) % Lymph % (Auto) (19-41) % Benzie % (Auto) (0-10) % Eos % (Auto) (0-5) % Baso % (Auto) (0-1) % Absolute Neuts (auto) (2.0-7.7) X10^3/uL Absolute Lymphs (auto) (0.83-4.51) X10^3/uL Nucleated RBC % (0-5) % Sodium 134 L (136-145) mmol/L Potassium 4.4 (3.5-5.1) mmol/L Chloride 100 (98-107) mmol/L Carbon Dioxide 30.0 (21.0-32.0) mmol/L Anion Gap 4 L (5-15) BUN 25 H (7-18) mg/dL Creatinine 1.13 (0.70-1.30) mg/dL Estim Creat Clear Calc 59.13 ml/min Est GFR (MDRD) Af Amer 81 (>60) mL/min Est GFR (MDRD) Non-Af 67 (>60) mL/min BUN/Creatinine Ratio 22.1 H (10-20) RATIO Glucose 93 (74-106) mg/dL Calcium 8.7 (8.5-10.1) mg/dL Phosphorus 3.2 (2.5-4.9) mg/dL Magnesium 2.3 (1.6-2.6) mg/dL Total Bilirubin 0.60 (0.20-1.00) mg/dL AST 28 (15-37) U/L ALT 43 (16-61) U/L Alkaline Phosphatase 78 (45-117) U/L Total Protein 6.2 L (6.4-8.2) g/dL Albumin 3.1 L (3.2-5.0) g/dL Globulin 3.1 (2.2-4.2) g/dL Albumin/Globulin Ratio 1.0 (0.9-2.4) RATIO POC Glucose (70-110) mg/dL Abbreviated EEG report: This is an abnormal EEG for age due to the presence of intermittent right temporoparietal irritability. This finding can serve as a substrate for the development of clinical epileptiform activity. There were no captured events. SOC Tele-neurology for EEG interpretation Operations: None Procedures: None, Electroencephalogram Summary of Care Provided: The patient is a 78 year old M with a past medical history of spondylolisthesis at L3-4, lumbar disc disease, hypothyroidism, rheumatoid arthritis, left lower extremity foot drop, BPH, osteoarthritis, history of large B-cell lymphoma, TIA in 2017 and thyroid cancer who was admitted to the inpatient rehab unit at [facility] on 08/12/2020 following lumbar laminectomy and fusion for greater than 3 hours of therapy daily to restore him after or near his prior level of independence. Prior to surgery he was independent with mobility, ADLs and driving. He was not using an assistive device for ambulation. He lives in a two-story house and has 13 steps to get up to his bedroom on the second floor. Lab at admission showed N/N anemia and hyponatremia with an increased BUN/CREAT ratio. Lab was repeated prior to DC and was stable. Pain was well controlled throughout his stay and he required no narcotics for 3 days prior to DC. His only complication during his rehab stay was an episode of confusion/disorientation when awakening form sleep. He later related, and his dtr confirmed, that he had been having these episodes for a few years and they generally last about 15-30 minutes and are proceeded by a hot flash. He has never been observed to have tonic clonic activity or incontinence. A stat CT brain showed no acute findings. An EEG showed intermittent right temporal parietal irritability. There were no captured events. He was started on Lamotrigine 25 mg for suspected focal seizures. He was advanced to 50 mg daily prior to discharge. He had no other episodes while in rehab and he had no adverse reactions to Lamotrigine. He will be following up with neurology (Dr. Hanks or ) going forward. He will also follow up with Dr. Velasquez in [address] Paolo Melgoza as previously instructed. He was instructed not to drive or ride a horse until he was seizure free for 6 months and cleared to resume these activities by neurology. He is quite depressed since the passing of his this past fall. He is frequently in tears and has been talking a lot about his and how much he misses her to the staff and I think this has been beneficial but, I told the patient and his dtr I think he would benefit from Psychotherapy and an antidepressant. I did not start an antidepressant while he was in the rehab unit because I did not want to start 2 new drugs at the same time and felt the AED took precedence. He will discuss possibly starting an antidepressant with Dr. Velasquez at his appt in 1 week. PHYSICAL EXAM: GENERAL: alert, oriented X 3, Cooperative, NAD ORAL: moist mucosa, no mucosal lesions NECK: No JVD, supple, trachea midline LUNGS: CTA, symmetric chest expansion HEART: RRR, Normal S1 and S2, no rub, no gallop, systolic ejection murmur heard best at the second right intercostal space with radiation to the lower left sternal border and apex. ABDOMEN: soft, NT, ND, BS present, no guarding with palpation EXTREMITIES: no edema, no cyanosis, no calf tenderness SKIN: No rashes, no breakdown. The incision is coapted well with no dolores-incisional erythema and no discharge. NEUROLOGIC: no focal neurologic deficits other than left foot drop. PSYCH: appropriate, depressed affect, pleasant This note was generated with [employer] dictation software. It may contain incorrect words, spelling, and punctuation that were not noted in checking the note before signing. [] - Physical Exam Vitals/I&O's: Vital Signs Temp Pulse Resp BP Pulse Ox 97.7 F L 66 18 113/65 97 08/27/19 07:47 08/27/19 07:47 08/27/19 07:47 08/27/19 07:47 08/27/19 07:47 Oxygen Delivery Method Room Air Weight: 205 lb 14.588 oz Body Mass Index (BMI) 29.4 Intake and Output for Last 24 Hours 02/13/20 02/14/20 02/15/20 23:59 23:59 23:59 Intake Total 480 / 480 1140 / 1140 720 / 720 Output Total 300 / 300 200 / 200 500 / 500 Balance 180 / 180 940 / 940 220 / 220 Current Medications Acetaminophen (Tylenol) 1,000 mg PO Q8H PRN PRN PRN Reason: Pain Score 1-1010 Last Admin: 08/24/19 01:55 Dose: 1,000 mg Documented by: Aspirin (Ecotrin) 81 mg PO DAILY@0800 [facility] Last Admin: 08/27/19 07:51 Dose: 81 mg Documented by: Bisacodyl (Dulcolax) 10 mg RECTAL .PRN X 1 PRN PRN Reason: Constipation Last Admin: 08/19/19 05:55 Dose: 10 mg Documented by: Cholecalciferol (Vitamin D) 1,000 unit PO DAILY [facility] Last Admin: 08/27/19 07:51 Dose: 1,000 unit Documented by: Folic Acid (Folic Acid) 1 mg PO DAILY@0800 [facility] Last Admin: 08/27/19 07:51 Dose: 1 mg Documented by: Gabapentin (Neurontin) 300 mg [facility] Last Admin: 08/27/19 07:51 Dose: 300 mg Documented by: Lamotrigine (Lamictal Chew) 25 mg PO DAILY [facility] Last Admin: 08/27/19 07:51 Dose: 25 mg Documented by: Levothyroxine Sodium (Synthroid) 137 mcg PO DAILY@0600 [facility] Last Admin: 08/27/19 06:14 Dose: 137 mcg Documented by: Magnesium Hydroxide (Milk Of Magnesia) 30 ml PO .PRN X 1 PRN PRN Reason: Constipation Last Admin: 08/18/19 15:11 Dose: 30 ml Documented by: Methotrexate (Methotrexate) 10 mg PO MARTINEZ@0800,1600 [facility] Last Admin: 08/21/19 16:14 Dose: 10 mg Documented by: Oxycodone HCl (Oxyir) 5 mg PO Q4H PRN PRN PRN Reason: Pain Score 1-10/10 Last Admin: 08/24/19 08:07 Dose: 5 mg Documented by: Polyethylene Glycol (Miralax) 17 gm PO DAILY [facility] Last Admin: 08/27/19 07:50 Dose: Not Given Documented by: Senna/Docusate Sodium (Senokot-S, Dolores-Colace) 2 tablet PO BID [facility] Last Admin: 08/27/19 07:50 Dose: Not Given Documented by: Discharge Activity: May Not Drive - You can not drive until you see the neurologist and he releases you to drive again. You had a seizure in the hospital and you have an abnormal EEG. You should not driven until you have been seizure free for 6 months. The episodes you have periodically where you feel hot and then can not remember anything for 15-30 minutes are most likely focal seizures. You have been started on an antiepileptic drug called Lamotrigine. You are currently on a very low dose...this medicine has to be gradually increased., May Shower Weight Bearing Status: Full weight bearing Call your doctor if you observe: Fever of 101 or Higher, Inability to urinate, Inability to have a bowel movement, Shortness of breath, Dizziness, Fainting spells, Swelling in the ankles, Chest pain, Calf discomfort, Uncontrolled pain Home Medications: Medications to take at Discharge Cholecalciferol (VIT D3) [Vitamin D3] 1,000 unit PO DAILY 06/06/15 Aspirin [Aspirin EC] 81 mg PO DAILY 11/07/16 Levothyroxine [Synthroid] 137 mcg PO DAILY 11/11/16 Folic Acid 1 mg PO DAILY@0800 08/12/19 Acetaminophen [Tylenol] 1,000 mg PO Q8H PRN PRN tab 08/27/19 Gabapentin [Neurontin] 300 mg PO BIDCM cap 08/27/19 Lamotrigine [Lamictal Chew] 25 mg PO DAILY #50 tab 08/27/19 Methotrexate 10 mg PO MARTINEZ@0800,1600 tab 08/27/19 Oxycodone [Oxyir] 5 mg PO Q4H PRN PRN 7 Days #14 tab 08/27/19 Polyethylene Glycol 3350 [Miralax] 17 gm PO DAILY packet 08/27/19 Following Prescrptions Were Given to Patient: Lamotrigine [Lamictal Chew] 25 mg PO DAILY #50 tab Transmission Status: Received by [facility] [place] Oxycodone [Oxyir] 5 mg PO Q4H PRN PRN 7 Days #14 tab PRN Reason: Pain Score 1-10/10 Transmission Status: Received by [id number] [place] Primary Care Physician: Branden Velasquez MD [Primary Care Provider] - Please follow up with your Primary Care Physician in: 1 week Please Follow Up With: Dr Hanks/ Dr Enrique Please Follow Up With: Dr Renny Melgoza When: as previously instructed Patient Instructions: Epilepsy: How Seizures Affect the Body, Self-Care for Epilepsy Disposition: Home with Home Health Minutes spent on discharge:: 40 Patient Condition:: Good Medical Necessity - Tobacco Use Smoking Status: Never smoker Tobacco Use: Non-smoker Meaningful Use Info Meaningful Use Diagnoses (Choose all that apply): None applicable Code Visit Inpatient E&M: 56686 Disch Hosp
[2019-08-27 14:21] VITALS: BP 112/60; PULSE 80; RESP 16; TEMP 36.5; O2SAT 97
--- NOTE | 2019-08-27 14:21 | NURSING ---
discharged home with family. Discharged instructions, medications and appointments reviewed with pt and daughter. denies questions or concerns.
== END 2019-08-27 14:15 | disposition home or self-care (01) | DRG 560 ==
PROVIDERS: Admitting Provider Internal Medicine; PCP Family Medicine; Visit Provider Internal Medicine
DX: Z47.89 Encounter for other orthopedic aftercare (principal); I48.20 Chronic atrial fibrillation, unspecified; C83.30 Diffuse large B-cell lymphoma, unspecified site; I25.10 Atherosclerotic heart disease of native coronary artery without angina pectoris; I48.0 Paroxysmal atrial fibrillation; Z98.1 Arthrodesis status; E89.0 Postprocedural hypothyroidism; N40.0 Benign prostatic hyperplasia without lower urinary tract symptoms; D50.9 Iron deficiency anemia, unspecified; M19.90 Unspecified osteoarthritis, unspecified site; K21.9 Gastro-esophageal reflux disease without esophagitis; M21.372 Foot drop, left foot; M06.9 Rheumatoid arthritis, unspecified; R56.9 Unspecified convulsions
CPT/HCPCS: 36415; 70450; 80048; 80053; 82962; 83735; 84100; 85025; 85027; 95819; 97110; 97116; 97162; 97166; 97530; 97535; 97802; 99251; G0463; J8610

== ENCOUNTER → 2019-09-08 15:38 | Outpatient (CLI) | payer MEDICARE, SELFPAY ==
[2019-08-12 18:56] VITALS: BMI 29.4
[2019-09-08 18:08] LABS: Absolute Lymphocyte Count 1.53 X10^3/uL (0.83-4.51); Absolute Neutrophil Count 4.7 X10^3/uL (2.0-7.7); Basophil# 0.08 X10^3/uL; Basophil% 1.1 % (0-1); Eosinophil# 0.38 X10^3/uL; Eosinophils% 5.4 % (0-5); Hematocrit 38.2 % (40-54); Hemoglobin 12.5 g/dL (13.0-16.5); Lymphocyte # 1.53 X10^3/ul (4.0); Lymphocyte % 21.6 % (19-41); Mean Corp Hgb Conc 32.7 g/dL (32-36); Mean Corpuscular Volume 94.8 fL (80-94); Mean Platelet Vol. 8.9 fl (6.2-12.0); Monocyte# 0.42 X10^3/uL; Monocyte% 5.9 % (0-10); NRBC Flagged by Analyzer 0 % (0-5); Neutrophil # 4.65 X10^3/uL (2.7-7.7); Neutrophil % 65.7 % (47-70); Platelet Count 242 K/mm3 (150-450); RBC Distribution Width CV 13.7 % (11.6-14.6); RBC Distribution Width SD 47.3 fl (35.1-43.9); Red Blood Count 4.03 M/mm3 (4.6-6.2); White Blood Count 7.1 K/mm3 (4.4-11.0)
[2019-09-08 18:28] LABS: ALB/GLOB Ratio 1.2 RATIO (0.9-2.4); AST(SGOT) 17 U/L (15-37); Alanine Aminotransfer ALT/SGPT 26 U/L (16-61); Albumin, Serum 3.6 g/dL (3.2-5.0); Alkaline Phosphatase 92 U/L (45-117); Anion Gap 6 (5-15); BUN 14 mg/dL (7-18); BUN/Creat Ratio 10.5 RATIO (10-20); Calcium,Total 8.6 mg/dL (8.5-10.1); Chloride 104 mmol/L (98-107); Creatinine, Serum 1.33 mg/dL (0.70-1.30); EST Glomerular Filtration Rate 55 mL/min (>60); Est Glom Filt Rate - Afr Amer 67 mL/min (>60); Glucose 98 mg/dL (74-106); Potassium 4.4 mmol/L (3.5-5.1); Protein, Total 6.6 g/dL (6.4-8.2); Sodium Level 138 mmol/L (136-145); T4 Free Direct 1.18 ng/dL (0.76-1.46); Thyroid Stim Hormone (TSH) 0.16 uIU/mL (0.358-3.74)
== END ==
PROVIDERS: PCP Family Medicine; Referring Provider Family Medicine; Visit Provider Family Medicine
DX: M79.89 Other specified soft tissue disorders (principal); E03.9 Hypothyroidism, unspecified
CPT/HCPCS: 36415; 80053; 84439; 84443; 85025

== ENCOUNTER → 2019-09-16 09:43 | Outpatient (CLI) | payer MEDICARE, SELFPAY ==
[2019-09-16 12:38] LABS: Absolute Neutrophil Count 4.4 X10^3/uL (2.0-7.7); Basophil# 0.07 X10^3/uL; Eosinophil# 0.27 X10^3/uL; Eosinophils% 3.8 % (0-5); Hematocrit 37.8 % (40-54); Hemoglobin 12.3 g/dL (13.0-16.5); Lymphocyte % 27.9 % (19-41); Mean Corp Hgb Conc 32.5 g/dL (32-36); Mean Corpuscular Hgb 30.4 pg (27.0-32.0); Mean Corpuscular Volume 93.6 fL (80-94); Mean Platelet Vol. 8.9 fl (6.2-12.0); Monocyte# 0.46 X10^3/uL; Monocyte% 6.4 % (0-10); NRBC Flagged by Analyzer 0 % (0-5); Neutrophil # 4.36 X10^3/uL (2.7-7.7); Neutrophil % 60.6 % (47-70); Platelet Count 230 K/mm3 (150-450); RBC Distribution Width CV 13.8 % (11.6-14.6); RBC Distribution Width SD 46.6 fl (35.1-43.9); Red Blood Count 4.04 M/mm3 (4.6-6.2); White Blood Count 7.2 K/mm3 (4.4-11.0)
[2019-09-16 13:07] LABS: AST(SGOT) 22 U/L (15-37); Alanine Aminotransfer ALT/SGPT 28 U/L (16-61); Albumin, Serum 3.8 g/dL (3.2-5.0); Alkaline Phosphatase 89 U/L (45-117); Bilirubin, Direct 0.15 mg/dL (0.00-0.30); Creatinine, Serum 0.96 mg/dL (0.70-1.30); EST Glomerular Filtration Rate 81 mL/min (>60); Est Glom Filt Rate - Afr Amer 98 mL/min (>60); Globulin 2.5 g/dL (2.2-4.2); Protein, Total 6.3 g/dL (6.4-8.2)
== END ==
PROVIDERS: PCP Family Medicine; Referring Provider Family Medicine; Visit Provider Internal Medicine Rheumatology
DX: Z79.899 Other long term (current) drug therapy (principal)
CPT/HCPCS: 36415; 80076; 82565; 85025

== ENCOUNTER → 2019-09-23 10:52 | Outpatient (CLI) | payer MEDICARE, SELFPAY ==
[2019-09-23 12:35] LABS: Absolute Lymphocyte Count 1.23 X10^3/uL (0.83-4.51); Absolute Neutrophil Count 4.8 X10^3/uL (2.0-7.7); Basophil# 0.08 X10^3/uL; Basophil% 1.2 % (0-1); Eosinophil# 0.18 X10^3/uL; Eosinophils% 2.7 % (0-5); Hematocrit 37.7 % (40-54); Hemoglobin 12.3 g/dL (13.0-16.5); Lymphocyte # 1.23 X10^3/ul (4.0); Lymphocyte % 18.3 % (19-41); Mean Corp Hgb Conc 32.6 g/dL (32-36); Mean Corpuscular Hgb 30.8 pg (27.0-32.0); Mean Corpuscular Volume 94.3 fL (80-94); Mean Platelet Vol. 8.6 fl (6.2-12.0); Monocyte# 0.41 X10^3/uL; Monocyte% 6.1 % (0-10); NRBC Flagged by Analyzer 0 % (0-5); Neutrophil # 4.79 X10^3/uL (2.7-7.7); Neutrophil % 71.4 % (47-70); Platelet Count 241 K/mm3 (150-450); RBC Distribution Width CV 13.7 % (11.6-14.6); RBC Distribution Width SD 47.3 fl (35.1-43.9); White Blood Count 6.7 K/mm3 (4.4-11.0)
[2019-09-23 13:28] LABS: ALB/GLOB Ratio 1.3 RATIO (0.9-2.4); AST(SGOT) 20 U/L (15-37); Alanine Aminotransfer ALT/SGPT 26 U/L (16-61); Albumin, Serum 3.8 g/dL (3.2-5.0); Alkaline Phosphatase 83 U/L (45-117); Anion Gap 6 (5-15); BUN 17 mg/dL (7-18); BUN/Creat Ratio 18.8 RATIO (10-20); Calcium,Total 8.6 mg/dL (8.5-10.1); Chloride 107 mmol/L (98-107); EST Glomerular Filtration Rate 86 mL/min (>60); Est Glom Filt Rate - Afr Amer 104 mL/min (>60); Glucose 92 mg/dL (74-106); Potassium 3.9 mmol/L (3.5-5.1); Protein, Total 6.8 g/dL (6.4-8.2); Sodium Level 140 mmol/L (136-145)
== END ==
PROVIDERS: PCP Family Medicine
DX: G40.109 Localization-related (focal) (partial) symptomatic epilepsy and epileptic syndromes with simple partial seizures, not intractable, without status epilepticus (principal)
CPT/HCPCS: 36415; 80053; 85025

== ENCOUNTER 2020-01-29 20:47 | Inpatient (IN) | payer MEDICARE, SELFPAY ==
[2020-01-29 20:48] VITALS: BP 118/60; PULSE 105; RESP 15; TEMP 36.3; O2SAT 94; BMI 26.7
--- NOTE | 2020-01-29 21:30 | CT_ITS ---
STUDY: CT ABDOMEN AND PELVIS WITHOUT CONTRAST REASON FOR EXAM: Male, 79 years old. N/V/D SINCE YESTERDAY. DIFFUSE ABD PAIN X 1 HR RADIATION DOSAGE (If Supplied By Facility): CTDIvol = ( 9.80 ) mGy, DLP = ( 516.83 ) mGycm TECHNIQUE: Transaxial images were obtained from the dome of the diaphragm to the symphysis pubis without oral contrast, and without intravenous contrast. Sagittal and coronal images were reconstructed. Individualized dose optimization techniques were used for this CT. COMPARISON: Previous study of 11/04/2016 FINDINGS: The visualized lung bases are unremarkable. The heart size is within normal limits. Coronary arterial stents or calcifications are noted. There is a 1.9 cm right hepatic lobe cyst. There are surgical clips in the gallbladder fossa consistent with a prior cholecystectomy. Normal spleen. Normal pancreas. Normal bilateral adrenal glands. There is a nonobstructing 3.6 mm right renal calculus. There is a nonobstructing 5.3 mm left renal calculus. Normal visualized stomach. There is moderate distention with air-fluid levels of multiple loops of small bowel. There is colonic diverticulosis with no evidence of associated diverticulitis. The appendix is visualized and appears normal. There are calcified plaques of the abdominal aorta and common iliac arteries. Normal inferior vena cava. Normal retroperitoneum. Normal urinary bladder. The prostate is enlarged, measuring 6.0 x 4.7 x 5.4 cm. Normal abdominal wall. There are diffuse degenerative changes of the visualized thoracolumbar spine. There is posterior spinal fusion with rods and interpedicular screws at the L3-[address]/Abdomen/Pelvis without Cont IMPRESSION: 1. Dilatation with air-fluid levels of multiple loops of small bowel suggestive of obstruction. 2. Nonobstructing bilateral renal calculi. 3. 1.9 cm right hepatic lobe cyst, stable in the interval. 4. Colonic diverticulosis with no evidence of associated diverticulitis. 5. Enlarged prostate. 6. Degenerative and postoperative changes of the spine. 7. There is no evidence of free intra-abdominal or intrapelvic air or fluid. Electronically Signed: Orlin Olguin MD at 22:43 EDT , Service support ,
--- NOTE | 2020-01-29 21:31 | ED.VIS.GI ---
History of Present Illness Chief Complaint: Nausea/Vomiting/Diarrhea Informant: Patient, Significant Other - Abdominal Pain/Flank Pain Onset: Yesterday - Around 24 hours ago, abdominal pain started 1-2 hours after eating a pork meal that he had the week before without symptoms Context: Gradual Onset Timing: Continuous Quality: Aching Location: Diffuse Current Severity: Gone Maximum Severity: Moderate Worsened by: Nothing Relieved by: - - Pain resolved after vomiting - Nausea/Vomiting/Emesis GI Symptom: Nausea, Vomiting Onset: Today, Yesterday Quality: Nonbilious, - - Just what I ate. Negative for: Blood streaks, Coffee ground, Hematemesis Severity: Severe - Diarrhea/Melena/Hematochezia GI Symptom: Diarrhea. Negative for: Melena, Hematochezia Onset: Today Stool Quality: Loose Severity: Mild Episodes: 1 Associated Symptoms: Negative for: Dysuria, Frequency, Hematuria, Urgency Narrative: Patient has had a cholecystectomy remotely. No other abdominal surgeries. Diffuse abdominal pain that resolved after vomiting. No fevers or chills. No known contact with COVID-19 or persons infected with it although the patient presents during the coronavirus national emergency declaration and during a time when there has been a significant uptick in recent cases in the community. He denies any public visits unless he was going to the doctor. He wears a mask out in public. He denies any chest pain, shortness of breath, coughing. - Past Medical History (1) Normochromic normocytic anemia Status: Chronic (2) S/P lumbar fusion Status: Chronic (3) Atherosclerotic heart disease of [place] coronary artery without angina pectoris Status: Chronic (4) BPH (benign prostatic hyperplasia) Status: Chronic (5) Fe deficiency anemia Status: Chronic (6) Hypothyroidism Status: Chronic (7) Mild aortic stenosis Status: Chronic (8) Paroxysmal atrial fibrillation Status: Chronic (9) Rheumatoid arthritis Status: Chronic Past Medical History - Allergies and Home Meds Allergies/Adverse Reactions: Allergies Iodinated Contrast Media [CONTRASTS] Allergy (Intermediate, Verified 05/18/19 14:16) Rash Primary Care Physician: Branden Velasquez MD [Primary Care Provider] - Surgical History: cholecystectomy, - - Bilateral cataract surgery, thyroid cancer resection, cholecystectomy, bilateral carpal tunnel surgery, right knee arthroscopic surgery, left knee arthroscopic surgery. Lives: Spouse/ Significant Other Smoking Status: Never smoker - Family History Maternal Family History: Family History (Last Reviewed 08/13/19 @ 13:[address] Zaira Coronado DO) Father Leukemia Family History: Reports: - - Notes mother passed following trauma MVA at age 51. Paternal Family History: Family History (Last Reviewed 08/13/19 @ 13:[address] Zaira Coronado DO) Father Leukemia Family History: Reports: - - Father at age 73 secondary to leukemia. Review of Systems General: Reports: Malaise. Denies: Chills, Fever, Sweats Eyes: Denies: Visual changes - bilaterally, Diplopia ENT: Denies: Rhinorrhea, Sore throat Cardiovascular: Denies: Chest pain, Palpitations Respiratory: Denies: Dyspnea, Cough, Dyspnea on exertion Gastrointestinal: Reports: Abdominal pain, Nausea, Vomiting, Diarrhea. Denies: Melena, Hematochezia Genitourinary: Denies: Dysuria, Hematuria, Frequency Musculoskeletal: Denies: Back pain, Swelling, Extremity Pain Skin: Denies: Rash, Wounds Neurological: Denies: Headache, Weakness, Numbness Physical Exam Vital Signs/Narrative: Vital Signs Temp Pulse Resp BP Pulse Ox 01/29/20 20:48 97.4 F L 105 H 15 118/60 94 Inital Vital Signs reviewed: Yes General: Well nourished, Well developed, No Acute Distress Head: Normocephalic, Atraumatic Eyes: Perrl, EOMI ENT: No rhinorrhea, Dry mucous membranes Neck: Supple, Nontender, No lymphadenopathy Cardiovascular: Regular rate, Regular rhythm, No murmurs, Tachycardia Respiratory: No distress, CTA bilaterally, Chest nontender Abdomen: Soft, Nontender, Nondistended, Normal bowel sounds Back: Nontender, Normal Inspection. Negative for: CVA tenderness Extremities: Nontender, No edema Skin: Normal color, No rash, No Trauma Neurological: Alert, Oriented x3, Cranial nerves II-XII grossly intact, Normal Strength, Normal Sensation, Normal Gait Psychological: Normal affect, Normal Mood Diagnostic/Tx/Re-eval Clinical Impression(s) from Imaging Studies Abdomen/Pelvis CT 01/29/20 21:30 IMPRESSION: 1. Dilatation with air-fluid levels of multiple loops of small bowel suggestive of obstruction. 2. Nonobstructing bilateral renal calculi. 3. 1.9 cm right hepatic lobe cyst, stable in the interval. 4. Colonic diverticulosis with no evidence of associated diverticulitis. 5. Enlarged prostate. 6. Degenerative and postoperative changes of the spine. 7. There is no evidence of free intra-abdominal or intrapelvic air or fluid. Electronically Signed: Orlin Olguin MD at 22:43 EDT , Service support , Chest X-Ray 01/29/20 22:03 IMPRESSION: Mild degenerative changes of the thoracic spine. No acute cardiopulmonary disease process is seen. Electronically Signed: Orlin Olguin MD at 22:33 EDT , Service support , Laboratory Tests 01/29/20 01/29/20 01/29/20 Range/Units 21:40 21:20 21:20 WBC 10.1 (4.4-11.0) K/mm3 RBC 4.54 L (4.6-6.2) M/mm3 Hgb 14.2 (13.0-16.5) g/dL Hct 41.9 (40-54) % MCV 92.3 (80-94) fL MCH 31.3 (27.0-32.0) pg MCHC 33.9 (32-36) g/dL RDW Std Deviation 47.0 H (35.1-43.9) fl RDW Coeff of Po 14.1 (11.6-14.6) % Plt Count 303 (150-450) K/mm3 MPV 9.1 (6.2-12.0) fl Immature Gran % (Auto) 0.900 (0.0-0.9) % Neut % (Auto) 74.8 H (47-70) % Lymph % (Auto) 10.2 L (19-41) % Dawes % (Auto) 13.7 H (0-10) % Eos % (Auto) 0.2 (0-5) % Baso % (Auto) 0.2 (0-1) % Absolute Neuts (auto) 7.6 (2.0-7.7) X10^3/uL Absolute Lymphs (auto) 1.03 (0.83-4.51) X10^3/uL Nucleated RBC % 0 (0-5) % Sodium 139 (136-145) mmol/L Potassium 3.9 (3.5-5.1) mmol/L Chloride 105 (98-107) mmol/L Carbon Dioxide 25.0 (21.0-32.0) mmol/L Anion Gap 9 (5-15) BUN 42 H (7-18) mg/dL Creatinine 1.85 H (0.70-1.30) mg/dL Estim Creat Clear Calc 34.48 ml/min Est GFR (MDRD) Af Amer 46 L (>60) mL/min Est GFR (MDRD) Non-Af 38 L (>60) mL/min BUN/Creatinine Ratio 22.7 H (10-20) RATIO Glucose 165 H (74-106) mg/dL Calcium 8.8 (8.5-10.1) mg/dL Total Bilirubin 0.80 (0.20-1.00) mg/dL AST 15 (15-37) U/L ALT 25 (16-61) U/L Alkaline Phosphatase 100 (45-117) U/L Troponin I < 0.015 (<0.045) ng/mL Total Protein 7.2 (6.4-8.2) g/dL Albumin 3.8 (3.2-5.0) g/dL Globulin 3.4 (2.2-4.2) g/dL Albumin/Globulin Ratio 1.1 (0.9-2.4) RATIO Lipase 90 (73-393) U/L COVID-19 (TREVON) Negative (Not Detect) - Medical Decision Making Patient was given IV fluids and Zofran. I performed a CT scan, the interpretation as above. I reexamined him after treatment. He is feeling better, and states my abdomen is rumbling. He is having no pain right now. He has hyperactive bowel sounds. Therefore, I think he is less likely to have an acute bowel obstruction since his abdomen is so benign, and more likely to have radiographic representation of gastroenteritis. Certainly, a partial small bowel obstruction is also possible. He does not appear to have an ileus. Daughter states he was very weak all day at home and could barely stand. He is dehydrated with acute kidney injury. IV fluids were given here. Given its variable presentation/symptomatology, I did send a COVID-19 swab, it returned negative. Plan is for admission for continued care and evaluation. ED Disposition - Plan for ED Patient: Disposition: Acute Care Hospital [facility] Diagnosis: Nausea vomiting and diarrhea, SHANELLE (acute kidney injury), Dehydration, Intermittent generalized abdominal pain, Small bowel obstruction, partial Referrals: Branden Velasquez MD [Primary Care Provider] -
[2020-01-29] MEDS: Ondansetron 4 MG/2 ML Vial IV (21:50)
[2020-01-29] MEDS: 0.9% Normal Saline 1,000 ML 999 ML IV (21:50)
--- NOTE | 2020-01-29 22:03 | RAD_ITS ---
STUDY: X-RAY CHEST REASON FOR EXAM: Male, 79 years old. C/O N/V/D SINCE YESTERDAY TECHNIQUE: Single AP portable view of the chest. COMPARISON: Previous study of 05/20/2017 FINDINGS: scuba diver leads are present. There is a left-sided MediPort with catheter tip projecting over the mid SVC. The lungs are clear and expanded. There is no demonstrated pleural abnormality. Normal size heart. Normal mediastinum and brooke. Normal visualized pulmonary arteries. Normal visualized aortic arch and descending thoracic aorta. There are diffuse degenerative changes of the visualized thoracic spine. Normal visualized ribs, clavicles, and shoulders. There is no demonstrated abnormality of the visualized soft tissue structures of the upper abdomen. RAD/Chest 1 View (Portable) IMPRESSION: Mild degenerative changes of the thoracic spine. No acute cardiopulmonary disease process is seen. Electronically Signed: Orlin Olguin MD at 22:33 EDT , Service support ,
[2020-01-29 22:29] LABS: ALB/GLOB Ratio 1.1 RATIO (0.9-2.4); AST(SGOT) 15 U/L (15-37); Alanine Aminotransfer ALT/SGPT 25 U/L (16-61); Albumin, Serum 3.8 g/dL (3.2-5.0); Alkaline Phosphatase 100 U/L (45-117); Anion Gap 9 (5-15); BUN 42 mg/dL (7-18); BUN/Creat Ratio 22.7 RATIO (10-20); Calcium,Total 8.8 mg/dL (8.5-10.1); Chloride 105 mmol/L (98-107); Creatinine, Serum 1.85 mg/dL (0.70-1.30); EST Glomerular Filtration Rate 38 mL/min (>60); Est Glom Filt Rate - Afr Amer 46 mL/min (>60); Estimated Creatinine Clearance 34.48 ml/min; Globulin 3.4 g/dL (2.2-4.2); Glucose 165 mg/dL (74-106); Lipase 90 U/L (73-393); Potassium 3.9 mmol/L (3.5-5.1); Protein, Total 7.2 g/dL (6.4-8.2); Sodium Level 139 mmol/L (136-145)
[2020-01-29 22:52] LABS: Probe Check PASS; Specimen Processing Control PASS
[2020-01-29 23:00] VITALS: BP 111/69; PULSE 81; RESP 20; O2SAT 99
--- NOTE | 2020-01-29 23:43 | PCM.HP.STD ---
Problem List (1) SBO (small bowel obstruction) Status: Acute (2) SHANELLE (acute kidney injury) Status: Acute (3) Focal seizures Status: Chronic (4) Rheumatoid arthritis Status: Chronic Qualifiers: Rheumatoid arthritis location: unspecified site Rheumatoid factor presence: unspecified presence Qualified Code(s): M06.9 - Rheumatoid arthritis, unspecified (5) Hypothyroidism Status: Chronic Qualifiers: Hypothyroidism type: postoperative Qualified Code(s): E89.0 - Postprocedural hypothyroidism (6) BPH (benign prostatic hyperplasia) Status: Chronic Qualifiers: Lower urinary tract symptom presence: unspecified whether lower urinary tract symptoms present Qualified Code(s): N40.0 - Benign prostatic hyperplasia without lower urinary tract symptoms (7) Paroxysmal atrial fibrillation Status: Chronic (8) Atherosclerotic heart disease of [place] coronary artery without angina pectoris Status: Chronic Qualifiers: [place] vs. transplanted heart: [place] heart Qualified Code(s): I25.10 - Atherosclerotic heart disease of [place] coronary artery without angina pectoris History of Present Illness Date of Admission: 01/29/20 Chief Complaint: Abdominal pain The patient is a 79 y/o M w/ PMHx: ? PAF, ? 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, OA with frequent falls, GERD, Diffuse Large B Cell Lymphoma, Gout, Hypothyroidism, Chronic constipation who presents to the [facility] ED on 01/29/20 with onset abdominal pain starting 1 to 2 hours after eating a meal the day prior to ED presentation with abdominal pain primarily bilateral lower quadrants, gradually worsening up to 9 out of 10 in severity prior to need to have bout of emesis with significant associated nausea, described as aching, cramping in nature with improvement following emesis with nausea associated with reported also concurrent loose stool x1 on day of ED presentation. Work-up in the ED included T 97.4, heart rate 105, BP 118/60, respiratory rate 15, 94% on room air, BMP with BUN/creatinine 42/1.85, glucose 165, troponin less than 0.015, lipase 90, negative COVID testing, chest x-ray with mild degenerative changes of the thoracic spine with no acute cardiopulmonary findings, CT A/P with dilation with air-fluid levels of multiple loops of small bowel suggestive of obstruction, nonobstructing bilateral renal calculi, 1.9 cm right hepatic lobe cyst stable in interval, colonic diverticulosis with no evidence of diverticulitis, enlarged prostate, degenerative and postoperative changes of the spine, no evidence of free intra-abdominal or intrapelvic air or fluid. In the ED patient administered normal saline and Zofran therapy. Past Medical History Past Medical History (Chronic Problems): Chronic Problems (Last Reviewed 08/13/19 @ 13:[address] Zaira Coronado DO) Mild aortic stenosis (Chronic) Normochromic normocytic anemia (Chronic) Focal seizures (Chronic) Rheumatoid arthritis (Chronic) Hypothyroidism (Chronic) BPH (benign prostatic hyperplasia) (Chronic) Fe deficiency anemia (Chronic) Paroxysmal atrial fibrillation (Chronic) Atherosclerotic heart disease of [place] coronary artery without angina pectoris (Chronic) S/P lumbar fusion (Chronic) Medical History: Medical History (Last Reviewed 08/13/19 @ 13:[address] Zaira Coronado DO) Arthritis M19.90 hips, low back. Poor balance, numbness in the left foot. Gout M10.9 Hernia K46.9 Lymphoma C85.90 Skin cancer C44.90 DDD (degenerative disc disease) GERD (gastroesophageal reflux disease) K21.9 History of left heart catheterization (LHC) Onset Date: ~07/23/04 Z98.890 Allergies Iodinated Contrast Media [CONTRASTS] Allergy (Intermediate, Verified 05/18/19 14:16) Rash Home Medications: Ambulatory Orders Medication Instructions Recorded Cholecalciferol (VIT D3) [Vitamin 1,000 unit PO DAILY 06/06/15 D3] Aspirin [Aspirin EC] 81 mg PO DAILY 11/07/16 Levothyroxine [Synthroid] 137 mcg PO DAILY 11/11/16 Folic Acid 1 mg PO DAILY@0800 08/12/19 Acetaminophen [Tylenol] 1,000 mg PO Q8H PRN PRN tab 08/27/19 Methotrexate 10 mg PO MARTINEZ@0800,1600 tab 08/27/19 Oxcarbazepine 300 mg PO DAILY 01/29/20 Polyethylene Glycol 3350 [Miralax] 17 gm PO DAILY PRN 01/29/20 Surgical History: Surgical History (Last Reviewed 08/13/19 @ 13:[address] Zaira Coronado DO) History of carpal tunnel surgery Z92.89 History of cataract extraction Z98.49 History of cholecystectomy Z90.49 History of knee replacement Z96.659 History of thyroidectomy E89.0 Surgical History: cholecystectomy, - - Bilateral cataract surgery, thyroid cancer resection, cholecystectomy, bilateral carpal tunnel surgery, right knee arthroscopic surgery, left knee arthroscopic surgery, lumbar lamiectomy. Psychiatric History: No pertinent psych hx Lives: Spouse/ Significant Other Smoking Status: Never smoker Tobacco Use: Non-smoker Alcohol: None Drugs: None - *Family History Maternal Family History: Family History (Last Reviewed 08/13/19 @ 13:[address] Zaira Coronado DO) Father Leukemia History Items: - - Notes mother passed following trauma MVA at age 51. Paternal Family History: Family History (Last Reviewed 08/13/19 @ 13:[address] Zaira Coronado DO) Father Leukemia History Items: - - Father at age 73 secondary to leukemia. Review of Systems Constitutional: Reports: Anorexia, Malaise, Weakness, Fatigue. Denies: Chills, Fever, Weight Change HEENT: Denies: Head Aches, Sinus Congestion, Sinus Drainage Cardiovascular: Denies: Chest Pain, Palpitations Respiratory: Denies: Cough, Shortness of breath at rest, Sputum production Gastrointestinal: Reports: Abdominal Pain, Diarrhea, Nausea, Vomiting Genitourinary: Denies: Dysuria Musculoskeletal: Reports: Joint Pain. Denies: Joint Tenderness Skin: Denies: Rash, Wounds Neurological: Denies: Numbness, Tingling, Focal weakness Psychiatric: Denies: Anxiety, Depression, Homicidal Ideations, Suicidal Ideations Hematologic/ Lymphatic: Reports: Anemia. Denies: Easy Bruising, Easy Bleeding VTE Information - Inpt Only VTE Present on Admission: No VTE Mechan Device Prophylaxis: SCD's VTE Pharm Prophylaxis ordered?: Yes Patient Problems: Active and Suspected Problems (Last Reviewed 08/13/19 @ 13:[address] Zaira Coronado DO) Nausea vomiting and diarrhea (Acute) SHANELLE (acute kidney injury) (Acute) Dehydration (Acute) Intermittent generalized abdominal pain (Acute) Small bowel obstruction, partial (Acute) SBO (small bowel obstruction) (Acute) Subjective: Patient seated upright in ED bed, fatigued appearance, notes currently feeling mildly improved since most recent bout of emesis, ongoing bilateral lower quadrant 1-2 out of 10 pain.. Objective: Physical Examination: General: awake, alert, oriented x 3 and cooperative, seated upright in the ED bed, fatigued appearance, notes pain improved but still 1-2 out of 10 in bilateral lower quadrants. Skin: normal color, turgor, no icterus, cyanosis. HEENT: AT/NC, EOMI, PERRLA, dry MM, no carotid bruits or JVD noted. Lungs: CTA bilaterally, moderate effort, mild decrease BL bases, no rales, ronchi or wheezing. Heart: Regular rate and rhythm; no gallop, rub audible. Abdomen: soft, tender to palpation bilateral lower quadrant, decreased bowel sounds with occasional high-pitched, nondistended, no obvious HSM. Extremities: no cyanosis, clubbing, or edema. Neurological: patient awake, alert, oriented x 3; cognitive function intact; pupils equally reactive to light and accomodation; cranial nerves II-XII grossly normal, moving all 4 extremities, no focal deficits, strength moderately to severely global decrease secondary to acute presentation. Psychiatric: affect appears fatigued otherwise normal, no acute evidence of depressive or anxiety feelings. - Physical Exam Vitals/I&O's: Vital Signs Temp Pulse Resp BP Pulse Ox 97.4 F L 81 20 H 111/69 99 01/29/20 20:48 01/29/20 23:00 01/29/20 23:00 01/29/20 23:00 01/29/20 23:00 Oxygen Delivery Method Room Air Weight: 192 lb 0.362 oz Body Mass Index (BMI) 26.7 Laboratory Results 01/29/20 21:20: Sodium 139, Potassium 3.9, Chloride 105, Carbon Dioxide 25.0, Anion Gap 9, BUN 42 H, Creatinine 1.85 H, Estim Creat Clear Calc 34.48, Est GFR (MDRD) Af Amer 46 L, Est GFR (MDRD) Non-Af 38 L, BUN/Creatinine Ratio 22.7 H, Glucose 165 H, Calcium 8.8, Total Bilirubin 0.80, AST 15, ALT 25, Alkaline Phosphatase 100, Troponin I < 0.015, Total Protein 7.2, Albumin 3.8, Globulin 3.4, Albumin/Globulin Ratio 1.1, Lipase 90 01/29/20 21:20: WBC Pending, RBC Pending, Hgb Pending, Hct Pending, MCV Pending, MCH Pending, MCHC Pending, RDW Std Deviation Pending, RDW Coeff of Po Pending, Plt Count Pending, Neut % (Auto) Pending, Absolute Neuts (auto) Pending 01/29/20 21:40: COVID-19 (TREVON) Negative Assessment/Plan All Active Problems (Last Reviewed 08/13/19 @ 13:[address] Zaira Coronado, DO) Nausea vomiting and diarrhea (Acute) SHANELLE (acute kidney injury) (Acute) Dehydration (Acute) Intermittent generalized abdominal pain (Acute) Small bowel obstruction, partial (Acute) SBO (small bowel obstruction) (Acute) Hyponatremia (Resolved) Physical debility (Acute) Abnormal EEG (Acute) Status post lumbar laminectomy (Acute) Confusion (Resolved) Diffuse large B cell lymphoma (Resolved) Speech disturbance (Resolved) TGA (transient global amnesia) (Resolved) TIA (transient ischemic attack) (Resolved) Thyroid cancer (Resolved) The patient is a 79 y/o M w/ PMHx: ? CAD, ? 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 1. Abdominal pain, nausea, emesis, diarrhea secondary to SBO versus Acute Ileus versus Acute Gastroenteritis: In the ED work-up included CT A/P with dilation with air-fluid levels of multiple loops of small bowel suggestive of obstruction. Will admit to MS, maintain on IVFs, will initiate NGT to suction pending surgery evaluation in case SBO, strict I&Os, IV pain/anti-emetics PRN, serial KUB as needed to montior bowel function, Protonix IV, maintain NPO on bowel rest. General surgery consulted, pending. 2. Acute kidney injury: Secondary to GI losses, nausea, emesis, loose stool as noted with poor oral intake. Admission BUN/Cr 42/1.85, prior baseline creatinine noted to be 0.9-1.2. Will hydrate, hold nephrotoxic medications and repeat chemistry in AM. If no improvement would plan FeNa assessment. 3. Hyperglycemia: Admission glucose 165, will obtain HgbA1c. 4. Diffuse Large B Cell Lymphoma: Following w/ Dr. 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 Resolved per most recent 05/2019 Oncology visit note. 5. Hypothyroidism with Hx Thyroid CA s/p resection: Holding home oral synthroid, if prolonged may consider 1/2 IV dosing. 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 6. Chronic back pain with DDD with neuropathy: Holding patient's gabapentin given NG tube with n.p.o. status. Add back once appropriate. 7. Seizure disorder: Noted to be focal in nature, we will resume patient oxcarbazepine once able, in interim we will maintain on IV Keppra. 8. Rheumatoid arthritis: We will hold patient's methotrexate and leucovorin given n.p.o. status, resume once appropriate. 9. GERD: Maintain on IV Protonix while n.p.o. status. 10. ? PAF, CAD: Reported in history, no PCI per review, holding aspirin oral regimen, not on any rate or rhythm agent, not on any hypertensive agent, not on statin therapy, will need to review records further. 11. DVT Prophylaxis: SCDS, lovenox. 12. CODE status: Patient SERGIO is his daughter who is present and living will is currently in place. Discussed CODE status at length including difference between FULL code, DNR-CCA and DNR-CC status. Following discussions about the differences in these status, requested full CODE STATUS. Advanced Care Planning Face to Face Time: 16 minutes. Inpatient E&M: 68715 Init Hosp L3 Procedures: 42905 Advncd Care Plan 30 Min
[2020-01-29 23:47] LABS: Absolute Lymphocyte Count 1.03 X10^3/uL (0.83-4.51); Absolute Neutrophil Count 7.6 X10^3/uL (2.0-7.7); Basophil# 0.02 X10^3/uL; Basophil% 0.2 % (0-1); Eosinophil# 0.02 X10^3/uL; Eosinophils% 0.2 % (0-5); Hematocrit 41.9 % (40-54); Hemoglobin 14.2 g/dL (13.0-16.5); Lymphocyte # 1.03 X10^3/ul (4.0); Lymphocyte % 10.2 % (19-41); Mean Corp Hgb Conc 33.9 g/dL (32-36); Mean Corpuscular Hgb 31.3 pg (27.0-32.0); Mean Corpuscular Volume 92.3 fL (80-94); Mean Platelet Vol. 9.1 fl (6.2-12.0); Monocyte# 1.38 X10^3/uL; Monocyte% 13.7 % (0-10); NRBC Flagged by Analyzer 0 % (0-5); Neutrophil # 7.56 X10^3/uL (2.7-7.7); Neutrophil % 74.8 % (47-70); Platelet Count 303 K/mm3 (150-450); RBC Distribution Width CV 14.1 % (11.6-14.6); Red Blood Count 4.54 M/mm3 (4.6-6.2); White Blood Count 10.1 K/mm3 (4.4-11.0)
[2020-01-30] VITALS: BP 117/64; PULSE 79; RESP 15; TEMP 36.3; O2SAT 98
[2020-01-30 00:44] VITALS: BP 123/68; PULSE 82; RESP 18; TEMP 37.6; O2SAT 100
[2020-01-30 01:02] VITALS: BMI 26.9
[2020-01-30 01:10] VITALS: BMI 26.9
[2020-01-30 01:26] LABS: Magnesium 2.2 mg/dL (1.6-2.6)
[2020-01-30 01:38] LABS: Hemoglobin A1c 5.4 % (3.8-5.6)
[2020-01-30] MEDS: 0.9% Normal Saline 1,000 ML 125 ML IV ×2 (01:46→09:10)
--- NOTE | 2020-01-30 02:07 | NURSING ---
assisted primary rn yoselin to insert NG x2 pt could not tolerate asked it to be removed will notify
[2020-01-30 03:50] VITALS: BP 101/60; PULSE 78; RESP 18; TEMP 36.6; O2SAT 93
--- NOTE | 2020-01-30 05:55 | RAD_ITS ---
STUDY: X-RAY - ABDOMEN/PELVIS REASON FOR EXAM: Male, 79 years old. small bowel obstruction TECHNIQUE: AP supine and upright views of the abdomen and pelvis. COMPARISON: CT scan abdomen and pelvis 01/29/2020. FINDINGS: Normal visualized lung bases. There is persistent prominence of gas in some small bowel loops, consistent with mild/ partial obstruction or ileus. There is no demonstrated paucity of gas in colon or rectum to suggest high-grade obstruction. There is no demonstrated free abdominal air. The visualized liver, spleen and kidneys are grossly normal in size and morphology. Normal soft tissue structures. There are postsurgical changes in the lumbar spine. RAD/Abd Decub and/or Erect(Portabl IMPRESSION: Persistent gaseous distention of some loops of small bowel, which may represent a low-grade obstruction or ileus. Electronically Signed: Jose Raul Ludwig MD at 6:03 EDT , Service support ,
[2020-01-30 06:19] LABS: Absolute Lymphocyte Count 1.41 X10^3/uL (0.83-4.51); Absolute Neutrophil Count 4.1 X10^3/uL (2.0-7.7); Basophil# 0.01 X10^3/uL; Basophil% 0.1 % (0-1); Eosinophils% 1.5 % (0-5); Hematocrit 37.3 % (40-54); Hemoglobin 12.5 g/dL (13.0-16.5); Lymphocyte # 1.41 X10^3/ul (4.0); Lymphocyte % 21.1 % (19-41); Mean Corp Hgb Conc 33.5 g/dL (32-36); Mean Corpuscular Hgb 31.3 pg (27.0-32.0); Mean Corpuscular Volume 93.5 fL (80-94); Mean Platelet Vol. 8.5 fl (6.2-12.0); Monocyte# 1.01 X10^3/uL; Monocyte% 15.1 % (0-10); NRBC Flagged by Analyzer 0 % (0-5); Neutrophil # 4.12 X10^3/uL (2.7-7.7); Neutrophil % 61.9 % (47-70); Platelet Count 222 K/mm3 (150-450); RBC Distribution Width CV 13.8 % (11.6-14.6); RBC Distribution Width SD 46.4 fl (35.1-43.9); Red Blood Count 3.99 M/mm3 (4.6-6.2); White Blood Count 6.7 K/mm3 (4.4-11.0)
[2020-01-30 06:45] LABS: ALB/GLOB Ratio 1.2 RATIO (0.9-2.4); AST(SGOT) 14 U/L (15-37); Alanine Aminotransfer ALT/SGPT 21 U/L (16-61); Albumin, Serum 3.2 g/dL (3.2-5.0); Alkaline Phosphatase 81 U/L (45-117); Anion Gap 3 (5-15); BUN 40 mg/dL (7-18); BUN/Creat Ratio 29.9 RATIO (10-20); Calcium,Total 8.1 mg/dL (8.5-10.1); Chloride 108 mmol/L (98-107); Creatinine, Serum 1.34 mg/dL (0.70-1.30); EST Glomerular Filtration Rate 55 mL/min (>60); Est Glom Filt Rate - Afr Amer 66 mL/min (>60); Estimated Creatinine Clearance 47.61 ml/min; Globulin 2.6 g/dL (2.2-4.2); Glucose 108 mg/dL (74-106); Potassium 3.7 mmol/L (3.5-5.1); Protein, Total 5.8 g/dL (6.4-8.2); Sodium Level 140 mmol/L (136-145)
--- NOTE | 2020-01-30 06:54 | CON.PCM_ITS ---
Reason for Consult Date of Consultation: 01/30/20 History of Present Illness: The patient is a 79 year old M presented to the ER due to pain starting Thursday night and vomiting all day Thursday. Patient initially started to have lower abdominal pain, patient states he had one episode of diarrhea and has been passing flatus. Patient's only abdominal surgery is laparoscopic cholecystectomy. Patient did have a colonoscopy between 5 and 10 years ago per the patient which was negative. CT abdomen pelvis question possible small bowel obstruction versus ileus. Patient's white blood count is within normal limits. Currently patient denies any abdominal pain or nausea and vomiting. He did attempt to place an NG however he states the right nostril is blocked and they are unable placed in the left however patient stomach on CT abdomen pelvis not show that it was distended. Past Medical History Past Medical History (Chronic Problems): Chronic Problems (Last Reviewed 08/13/19 @ 13:[address] Zaira Coronado, ) Mild aortic stenosis (Chronic) Normochromic normocytic anemia (Chronic) Focal seizures (Chronic) Rheumatoid arthritis (Chronic) Hypothyroidism (Chronic) BPH (benign prostatic hyperplasia) (Chronic) Fe deficiency anemia (Chronic) Paroxysmal atrial fibrillation (Chronic) Atherosclerotic heart disease of [place] coronary artery without angina pectoris (Chronic) S/P lumbar fusion (Chronic) Medical History: Medical History (Last Reviewed 08/13/19 @ 13:[address] Zaira Coronado, ) Arthritis M19.90 hips, low back. Poor balance, numbness in the left foot. Gout M10.9 Hernia K46.9 Lymphoma C85.90 Skin cancer C44.90 DDD (degenerative disc disease) GERD (gastroesophageal reflux disease) K21.9 History of left heart catheterization (LHC) Onset Date: ~07/23/04 Z98.890 Allergies Iodinated Contrast Media [CONTRASTS] Allergy (Intermediate, Verified 05/18/19 14:16) Rash Home Medications: Ambulatory Orders Medication Instructions Recorded Cholecalciferol (VIT D3) [Vitamin 1,000 unit PO DAILY 06/06/15 D3] Aspirin [Aspirin EC] 81 mg PO DAILY 11/07/16 Levothyroxine [Synthroid] 137 mcg PO DAILY 11/11/16 Folic Acid 800 mg PO DAILY@0800 08/12/19 Acetaminophen [Tylenol] 1,000 mg PO Q8H PRN PRN tab 08/27/19 Methotrexate 10 mg PO MARTINEZ@0800,1600 tab 08/27/19 Oxcarbazepine 300 mg PO BID 01/29/20 Polyethylene Glycol 3350 [Miralax] 17 gm PO DAILY PRN 01/29/20 Surgical History: Surgical History (Last Reviewed 08/13/19 @ 13:[address] Zaira Coronado DO) History of carpal tunnel surgery Z92.89 History of cataract extraction Z98.49 History of cholecystectomy Z90.49 History of knee replacement Z96.659 History of thyroidectomy E89.0 Surgical History: cholecystectomy, - - Bilateral cataract surgery, thyroid cancer resection, cholecystectomy, bilateral carpal tunnel surgery, right knee arthroscopic surgery, left knee arthroscopic surgery, lumbar lamiectomy. Psychiatric History: No pertinent psych hx Lives: Spouse/ Significant Other Smoking Status: Never smoker Tobacco Use: Non-smoker Alcohol: None Drugs: None - *Family History Maternal Family History: Family History (Last Reviewed 08/13/19 @ 13:[address] Zaira Coronado DO) Father Leukemia History Items: - - Notes mother passed following trauma MVA at age 51. Paternal Family History: Family History (Last Reviewed 08/13/19 @ 13:[address] Zaira Coronado DO) Father Leukemia History Items: - - Father at age 73 secondary to leukemia. Review of Systems Constitutional: Denies: Fever Eyes: Denies: Blurred vision HEENT: Denies: Difficulty Swallowing Cardiovascular: Denies: Chest Pain Respiratory: Denies: Shortness of breath at rest Gastrointestinal: Reports: Diarrhea. Denies: Abdominal Pain, Nausea, Vomiting Genitourinary: Denies: Dysuria Skin: Denies: Rash Neurological: Denies: Confusion Psychiatric: Denies: Anxiety Hematologic/ Lymphatic: Denies: Anemia, Easy Bleeding Patient Problems: Active and Suspected Problems (Last Reviewed 08/13/19 @ 13:[address] Zaira Coronado DO) Nausea vomiting and diarrhea (Acute) SHANELLE (acute kidney injury) (Acute) Dehydration (Acute) Intermittent generalized abdominal pain (Acute) Small bowel obstruction, partial (Acute) SBO (small bowel obstruction) (Acute) - Physical Exam Vitals/I&O's: Vital Signs Temp Pulse Resp BP Pulse Ox 98 F 78 18 101/60 93 01/30/20 03:50 01/30/20 03:50 01/30/20 03:50 01/30/20 03:50 01/30/20 03:50 Oxygen Delivery Method Room Air Weight: 197 lb 15.602 oz Body Mass Index (BMI) 26.9 Intake and Output for Last 24 Hours 01/28/20 01/29/20 01/30/20 23:59 23:59 23:59 Intake Total 1000 / 1000 Output Total 150 / 150 Balance 850 / 850 General: Alert, Oriented x3, Cooperative, No apparent distress HEENT: Atraumatic Lungs: Normal air movement Cardiovascular: Regular rate Abdomen: Soft, Non Tender, Non-Distended Extremities: No clubbing, No cyanosis, No edema Neurological: Cranial nerves II-XII grossly intact Psych/Mental Status: Normal Affect Laboratory Results 01/29/20 21:20: Sodium 139, Potassium 3.9, Chloride 105, Carbon Dioxide 25.0, Anion Gap 9, BUN 42 H, Creatinine 1.85 H, Estim Creat Clear Calc 34.48, Est GFR (MDRD) Af Amer 46 L, Est GFR (MDRD) Non-Af 38 L, BUN/Creatinine Ratio 22.7 H, Glucose 165 H, Calcium 8.8, Total Bilirubin 0.80, AST 15, ALT 25, Alkaline Phosphatase 100, Troponin I < 0.015, Total Protein 7.2, Albumin 3.8, Globulin 3.4, Albumin/Globulin Ratio 1.1, Lipase 90 01/29/20 21:20: WBC 10.1, RBC 4.54 L, Hgb 14.2, Hct 41.9, MCV 92.3, MCH 31.3, MCHC 33.9, RDW Std Deviation 47.0 H, RDW Coeff of Po 14.1, Plt Count 303, MPV 9.1, Immature Gran % (Auto) 0.900, Neut % (Auto) 74.8 H, Lymph % (Auto) 10.2 L, Mccreary % (Auto) 13.7 H, Eos % (Auto) 0.2, Baso % (Auto) 0.2, Absolute Neuts (auto) 7.6, Absolute Lymphs (auto) 1.03, Nucleated RBC % 0 01/29/20 21:20: Magnesium 2.2 01/29/20 21:20: Hemoglobin A1c 5.4 01/29/20 21:40: COVID-19 (TREVON) Negative 01/30/20 05:55: WBC 6.7, RBC 3.99 L, Hgb 12.5 L, Hct 37.3 L, MCV 93.5, MCH 31.3, MCHC 33.5, RDW Std Deviation 46.4 H, RDW Coeff of Po 13.8, Plt Count 222, MPV 8.5, Immature Gran % (Auto) 0.300, Neut % (Auto) 61.9, Lymph % (Auto) 21.1, Mccreary % (Auto) 15.1 H, Eos % (Auto) 1.5, Baso % (Auto) 0.1, Absolute Neuts (auto) 4.1, Absolute Lymphs (auto) 1.41, Nucleated RBC % 0 01/30/20 05:55: Sodium 140, Potassium 3.7, Chloride 108 H, Carbon Dioxide 29.0, Anion Gap 3 L, BUN 40 H, Creatinine 1.34 H, Estim Creat Clear Calc 47.61, Est GFR (MDRD) Af Amer 66, Est GFR (MDRD) Non-Af 55 L, BUN/Creatinine Ratio 29.9 H, Glucose 108 H, Calcium 8.1 L, Total Bilirubin 0.70, AST 14 L, ALT 21, Alkaline Phosphatase 81, Total Protein 5.8 L, Albumin 3.2, Globulin 2.6, Albumin/Globulin Ratio 1.2 Current Medications Acetaminophen (Tylenol) 650 mg RECTAL Q4H PRN PRN PRN Reason: Pain Score 1-10/Temp > 100.7 F Albuterol Sulfate (Ventolin Aerosols) 2.5 mg INHALATION Q2H PRN PRN PRN Reason: Dyspnea, wheezing Dextrose (D50w Syringe) 0 gm IV X1 PRN; Protocol PRN Reason: Hypoglycemia Enoxaparin Sodium (Lovenox) 30 mg SC DAILY FLORES Glucagon () 1 mg IM .X1 PRN PRN Reason: Hypoglycemia Hydralazine HCl (Apresoline Iv) 10 mg IV Q4H PRN PRN PRN Reason: SBP > 160 Sodium Chloride () 1,000 mls @ 125 mls/hr IV .Q8H FLORES Last Admin: 01/30/20 01:46 Dose: 125 mls/hr Documented by: Levetiracetam 500 mg/ Sodium (Chloride) 105 mls @ 400 mls/hr IV Q12 FLORES Pantoprazole Sodium 40 mg/ (Sodium Chloride) 110 mls @ 330 mls/hr IV Q12 FLORES Sodium Chloride () 250 mls @ 15 mls/hr IV .[id number] PRN PRN Reason: Saline Flush Morphine Sulfate () 4 mg IV Q3H PRN PRN PRN Reason: Pain Score 6-10/10 Nitroglycerin (Nitrostat) 0.4 mg SUBLINGUAL Q5M PRN PRN Reason: CARDIAC/CHEST PAIN Ondansetron HCl (Zofran) 4 mg IV Q8H PRN PRN PRN Reason: NAUSEA/VOMITING Prochlorperazine Edisylate (Compazine Iv) 5 mg IV Q4H PRN PRN PRN Reason: Breakthrough nausea/vomiting Sodium Chloride () 10 - 40 ml IV UD PRN PRN Reason: SALINE FLUSH Assessment/Plan All Active Problems (Last Reviewed 08/13/19 @ 13:[address] Zaira Coronado, DO) Nausea vomiting and diarrhea (Acute) SHANELLE (acute kidney injury) (Acute) Dehydration (Acute) Intermittent generalized abdominal pain (Acute) Small bowel obstruction, partial (Acute) SBO (small bowel obstruction) (Acute) Hyponatremia (Resolved) Physical debility (Acute) Abnormal EEG (Acute) Status post lumbar laminectomy (Acute) Confusion (Resolved) Diffuse large B cell lymphoma (Resolved) Speech disturbance (Resolved) TGA (transient global amnesia) (Resolved) TIA (transient ischemic attack) (Resolved) Thyroid cancer (Resolved) 79-year-old male with small bowel obstruction versus ileus, nausea vomiting 1. We will check a small bowel follow-through with Gastrografin and see this is obstruction versus ileus currently patient denies any abdominal pain nausea or vomiting. Brissa Hernandes M.D. Pager: [phone] [facility] [address] [place] [address], [facility], [address] [place] [address] Office: [phone] Addendum: Patient small bowel follow-through did make it to the colon. Patient's diet was advanced and he was able to tolerate it. Inpatient E&M: 55383 Init Hosp L2
[2020-01-30 07:25] VITALS: O2SAT 96
--- NOTE | 2020-01-30 09:00 | RAD_ITS ---
STUDY: SMALL BOWEL FOLLOW-THROUGH STUDY REASON FOR EXAM: Male, 79 years old. SBO VS ILEUS, Gastrografin used RADIATION DOSAGE (If Supplied By Facility): CTDIvol = ( ) mGy, DLP = ( ) mGycm. Individualized dose optimization techniques were used for this CT.? TECHNIQUE: Patient ingested a 50/50 mixture of Gastrografin and water. Serial films tracked the contrast through the small intestine. COMPARISON: None. FINDINGS: Machine Welder film demonstrates unremarkable bowel gas pattern. Surgical hardware at L3 and L4 free of complication. Bony structures show degenerative change. There are borderline distended small bowel loops are all 4 quadrants of the abdomen consistent with ileus but there is no obstruction seen. Transit time to the terminal ileum was approximately 180 minutes which is slightly greater within normal. There is no mass lesion, submucosal edema, or abnormal separation of bowel loops to suspect acute inflammation. RAD/Small Bowel Series Only IMPRESSION: Small bowel ileus, no evidence to suspect obstruction. No plain film evidence of acute inflammatory process Electronically Signed: Valentino Diaz MD at 12:46 EDT , Service support ,
--- NOTE | 2020-01-30 09:02 | NURSING ---
pt to x-ray via w/ch
--- NOTE | 2020-01-30 10:54 | NURSING ---
remains off unit for testing
[2020-01-30 13:32] VITALS: BP 119/71; PULSE 63; RESP 18; TEMP 36.8; O2SAT 100
--- NOTE | 2020-01-30 14:00 | CASEMGMT ---
RN ARIA Face to Face with patient for initial transition planning/care coordination assessment. RN CM introduced self and role at [facility]. Patient lying in bed, alert and oriented, daughter at bedside. Patient willing to participate in assessment and is able to answer all questions appropriately. Care providers, pharmacy, and demographics verified. Patient wishes to discharge home, denies need for home health at this time. Patient states he has no further needs or concerns at this time. CM to follow for discharge planning needs that may arise. PCP: Ron Specialists: Abad, back surgeon; Aditi, lead operator; Klaus, neurologist Preferred Pharmacy: [facility] Insurance: [facility] [employer] Prescription Benefit: yes Living Will/HPOA: yes, daughter Alda Ly LNOK: daughter Living Arrangements: Patient lives alone in 2 story home. Patient states he is independent at home and able to ambulate steps Transportation: self, daughter DME/HHC: Patient states he has shower chair, raised toilet, cane, walker, wheelchair, and grab bars at home. Patient has previously been to inpatient rehab unit at [facility]. Patient denies previous [facility]. Disposition Plan: Patient to discharge home with family support and follow-up plans in place. Anusha CARLSON, RN, CM
--- NOTE | 2020-01-30 14:31 | PN_ITS ---
Patient Problems: Active and Suspected Problems (Last Reviewed 08/13/19 @ 13:[address] Zaira Coronado, DO) Nausea vomiting and diarrhea (Acute) SHANELLE (acute kidney injury) (Acute) Dehydration (Acute) Intermittent generalized abdominal pain (Acute) Small bowel obstruction, partial (Acute) SBO (small bowel obstruction) (Acute) Reason for Visit: SBO Subjective: Feeling better. +BM with gastrograffin. Vitals/I&O's: Vital Signs Temp Pulse Resp BP Pulse Ox 36.8 C 63 18 119/71 100 01/30/20 13:32 01/30/20 13:32 01/30/20 13:32 01/30/20 13:32 01/30/20 13:32 Oxygen Delivery Method Room Air Weight: 89.8 kg Body Mass Index (BMI) 26.9 Intake and Output for Last 24 Hours 01/28/20 01/29/20 01/30/20 23:59 23:59 23:59 Intake Total 2387.5 / 2387.5 Output Total 150 / 150 Balance 2237.5 / 2237.5 General: Alert, No apparent distress HEENT: Atraumatic, Normocephalic Oral: Moist Mucosa, No Gingival or Mucosal Lesions/ Ulcerations Neck: No Nodes, Thyroid Normal Size and Texture Lungs: Clear to auscultation, Normal air movement, No rhonchi, No wheeze Cardiovascular: Regular rate, Regular Rhythm, Normal S1, Normal S2 Abdomen: Bowel Sounds Present, Soft, Non Tender, Non-Distended Extremities: No edema, No Calf Tenderness Skin: No rashes, No breakdown Psych/Mental Status: Normal Affect, Appropriate Laboratory Results 01/29/20 21:: Sodium 139, Potassium 3.9, Chloride 105, Carbon Dioxide 25.0, Anion Gap 9, BUN 42 H, Creatinine 1.85 H, Estim Creat Clear Calc 34.48, Est GFR (MDRD) Af Amer 46 L, Est GFR (MDRD) Non-Af 38 L, BUN/Creatinine Ratio 22.7 H, Glucose 165 H, Calcium 8.8, Total Bilirubin 0.80, AST 15, ALT 25, Alkaline Phosphatase 100, Troponin I < 0.015, Total Protein 7.2, Albumin 3.8, Globulin 3.4, Albumin/Globulin Ratio 1.1, Lipase 90 01/29/20 21:20: WBC 10.1, RBC 4.54 L, Hgb 14.2, Hct 41.9, MCV 92.3, MCH 31.3, MCHC 33.9, RDW Std Deviation 47.0 H, RDW Coeff of Po 14.1, Plt Count 303, MPV 9.1, Immature Gran % (Auto) 0.900, Neut % (Auto) 74.8 H, Lymph % (Auto) 10.2 L, Giles % (Auto) 13.7 H, Eos % (Auto) 0.2, Baso % (Auto) 0.2, Absolute Neuts (auto) 7.6, Absolute Lymphs (auto) 1.03, Nucleated RBC % 0 01/29/20 21:20: Magnesium 2.2 01/29/20 21:20: Hemoglobin A1c 5.4 01/29/20 21:40: COVID-19 (TREVON) Negative 01/30/20 05:55: WBC 6.7, RBC 3.99 L, Hgb 12.5 L, Hct 37.3 L, MCV 93.5, MCH 31.3, MCHC 33.5, RDW Std Deviation 46.4 H, RDW Coeff of Po 13.8, Plt Count 222, MPV 8.5, Immature Gran % (Auto) 0.300, Neut % (Auto) 61.9, Lymph % (Auto) 21.1, Giles % (Auto) 15.1 H, Eos % (Auto) 1.5, Baso % (Auto) 0.1, Absolute Neuts (auto) 4.1, Absolute Lymphs (auto) 1.41, Nucleated RBC % 0 01/30/20 05:55: Sodium 140, Potassium 3.7, Chloride 108 H, Carbon Dioxide 29.0, Anion Gap 3 L, BUN 40 H, Creatinine 1.34 H, Estim Creat Clear Calc 47.61, Est GFR (MDRD) Af Amer 66, Est GFR (MDRD) Non-Af 55 L, BUN/Creatinine Ratio 29.9 H, Glucose 108 H, Calcium 8.1 L, Total Bilirubin 0.70, AST 14 L, ALT 21, Alkaline Phosphatase 81, Total Protein 5.8 L, Albumin 3.2, Globulin 2.6, Albumin/Globulin Ratio 1.2 Current Medications Acetaminophen (Tylenol) 650 mg RECTAL Q4H PRN PRN PRN Reason: Pain Score 1-10/Temp > 100.7 F Albuterol Sulfate (Ventolin Aerosols) 2.5 mg INHALATION Q2H PRN PRN PRN Reason: Dyspnea, wheezing Dextrose (D50w Syringe) 0 gm IV X1 PRN; Protocol PRN Reason: Hypoglycemia Enoxaparin Sodium (Lovenox) 40 mg SC DAILY [facility] Glucagon () 1 mg IM .X1 PRN PRN Reason: Hypoglycemia Hydralazine HCl (Apresoline Iv) 10 mg IV Q4H PRN PRN PRN Reason: SBP > 160 Sodium Chloride () 1,000 mls @ 125 mls/hr IV .Q8H [facility] Last Infusion: 01/30/20 12:52 Dose: 0 mls/hr Documented by: Levetiracetam 500 mg/ Sodium (Chloride) 105 mls @ 400 mls/hr IV Q12 [facility] Last Admin: 01/30/20 12:46 Dose: 400 mls/hr Documented by: Pantoprazole Sodium 40 mg/ (Sodium Chloride) 110 mls @ 330 mls/hr IV Q12 [facility] Last Admin: 01/30/20 12:44 Dose: 330 mls/hr Documented by: Sodium Chloride () 250 mls @ 15 mls/hr IV .[id number] PRN PRN Reason: Saline Flush Morphine Sulfate () 4 mg IV Q3H PRN PRN PRN Reason: Pain Score 6-10/10 Nitroglycerin (Nitrostat) 0.4 mg SUBLINGUAL Q5M PRN PRN Reason: CARDIAC/CHEST PAIN Ondansetron HCl (Zofran) 4 mg IV Q8H PRN PRN PRN Reason: NAUSEA/VOMITING Prochlorperazine Edisylate (Compazine Iv) 5 mg IV Q4H PRN PRN PRN Reason: Breakthrough nausea/vomiting Sodium Chloride () 10 - 40 ml IV UD PRN PRN Reason: SALINE FLUSH STROKE Vital Signs/Narrative: Vital Signs Temp Pulse Resp BP Pulse Ox 01/30/20 13:32 36.8 C 63 18 119/71 100 Medical Necessity - Tobacco Use Smoking Status: Never smoker Tobacco Use: Non-smoker Assessment/Plan All Active Problems (Last Reviewed 08/13/19 @ 13:[address] Edepika Sementi, DO) Nausea vomiting and diarrhea (Acute) SHANELLE (acute kidney injury) (Acute) Dehydration (Acute) Intermittent generalized abdominal pain (Acute) Small bowel obstruction, partial (Acute) SBO (small bowel obstruction) (Acute) Hyponatremia (Resolved) Physical debility (Acute) Abnormal EEG (Acute) Status post lumbar laminectomy (Acute) Confusion (Resolved) Diffuse large B cell lymphoma (Resolved) Speech disturbance (Resolved) TGA (transient global amnesia) (Resolved) TIA (transient ischemic attack) (Resolved) Thyroid cancer (Resolved) 1. SBO: resolved. passed SBFT. Advance diet. 2. Debility: likely exacerbated by SBO in patient with chronic difficulty standing due to chronic DDD. PT OT 3. SHANELLE: likely prerenal from vomiting. improving. 4. VTE prophylaxis: LMWH. Inpatient E&M: 46047 Subs Hosp L2
--- NOTE | 2020-01-30 17:34 | DCINST_ITS ---
- Discharge Diagnoses Current Active Problems: Current Active and Chronic Problems (Last Reviewed 08/13/19 @ 13:[address] Zaira Coronado DO) Nausea vomiting and diarrhea (Acute) SHANELLE (acute kidney injury) (Acute) Dehydration (Acute) Intermittent generalized abdominal pain (Acute) Small bowel obstruction, partial (Acute) SBO (small bowel obstruction) (Acute) You will use the following diet at home:: No restrictions Your food should be the consistency of: Regular Call your doctor if you observe: - - abdominal pain. abdominal distention. Allergies/Adverse Reactions: Allergies Iodinated Contrast Media [CONTRASTS] Allergy (Intermediate, Verified 05/18/19 14:16) Rash Medications to take at Discharge Cholecalciferol (VIT D3) [Vitamin D3] 1,000 unit PO DAILY 06/06/15 Aspirin [Aspirin EC] 81 mg PO DAILY 11/07/16 Levothyroxine [Synthroid] 137 mcg PO DAILY 11/11/16 Folic Acid 800 mg PO DAILY@0800 08/12/19 Acetaminophen [Tylenol] 1,000 mg PO Q8H PRN PRN tab 08/27/19 Methotrexate 10 mg PO MARTINEZ@0800,1600 tab 08/27/19 Oxcarbazepine 300 mg PO BID 01/29/20 Polyethylene Glycol 3350 [Miralax] 17 gm PO DAILY PRN 01/29/20 Primary Care Physician: Branden Velasquez MD [Primary Care Provider] - Test Results: Test results from this visit will be discussed in further detail at your follow- up appointment, if applicable. Proposed Discharge Date: 01/30/20
--- NOTE | 2020-01-30 17:35 | DS.PCM_ITS ---
Discharge Date and Diagnosis - Problem List Patient Problems: Active and Suspected Problems (Last Reviewed 08/13/19 @ 13:[address] Zaira Coronado DO) Nausea vomiting and diarrhea (Acute) SHANELLE (acute kidney injury) (Acute) Dehydration (Acute) Intermittent generalized abdominal pain (Acute) Small bowel obstruction, partial (Acute) SBO (small bowel obstruction) (Acute) Date of Admission: 01/29/20 Date of Discharge: 01/30/20 - Primary Discharge Diagnosis Acute Problems: Active Problems (Last Reviewed 08/13/19 @ 13:[address] Zaira Coronado DO) Nausea vomiting and diarrhea (Acute) SHANELLE (acute kidney injury) (Acute) Dehydration (Acute) Intermittent generalized abdominal pain (Acute) Small bowel obstruction, partial (Acute) SBO (small bowel obstruction) (Acute) - Secondary Discharge Diagnosis Chronic Problems: Chronic Problems (Last Reviewed 08/13/19 @ 13:[address] 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 He is having nausea and vomiting. Patient presented to the hospital a CAT scan that showed small bowel suggesting obstruction. Patient was made n.p.o. started on IV fluids he had some evidence of acute kidney injury with creatinine 1.85. For the following day. Patient was seen by general surgery in order small bowel follow-through. Small bowel follow-through was negative for any small bowel obstruction was himself is passing. Patient was feeling much better. Diet was advanced today and he tolerated that well. 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 [] Patient Problems: Active and Suspected Problems (Last Reviewed 08/13/19 @ 13:[address] Zaira Coronado, DO) Nausea vomiting and diarrhea (Acute) SHANELLE (acute kidney injury) (Acute) Dehydration (Acute) Intermittent generalized abdominal pain (Acute) Small bowel obstruction, partial (Acute) SBO (small bowel obstruction) (Acute) - Physical Exam Vitals/I&O's: Vital Signs Temp Pulse Resp BP Pulse Ox 36.8 C 63 18 119/71 100 01/30/20 13:32 01/30/20 13:32 01/30/20 13:32 01/30/20 13:32 01/30/20 13:32 Oxygen Delivery Method Room Air Weight: 89.8 kg Body Mass Index (BMI) 26.9 Intake and Output for Last 24 Hours 01/28/20 01/29/20 01/30/20 23:59 23:59 23:59 Intake Total 2387.5 / 2387.5 Output Total 150 / 150 Balance 2237.5 / 2237.5 General: Alert, No apparent distress HEENT: Atraumatic, Normocephalic Oral: Moist Mucosa, No Gingival or Mucosal Lesions/ Ulcerations Neck: No Nodes, Thyroid Normal Size and Texture Lungs: Clear to auscultation, Normal air movement, No rhonchi, No wheeze Cardiovascular: Regular rate, Regular Rhythm, Normal S1, Normal S2 Abdomen: Bowel Sounds Present, Soft, Non Tender, Non-Distended Extremities: No edema, No Calf Tenderness Skin: No rashes, No breakdown Laboratory Results 01/29/20 21:20: Sodium 139, Potassium 3.9, Chloride 105, Carbon Dioxide 25.0, Anion Gap 9, BUN 42 H, Creatinine 1.85 H, Estim Creat Clear Calc 34.48, Est GFR (MDRD) Af Amer 46 L, Est GFR (MDRD) Non-Af 38 L, BUN/Creatinine Ratio 22.7 H, Glucose 165 H, Calcium 8.8, Total Bilirubin 0.80, AST 15, ALT 25, Alkaline Phosphatase 100, Troponin I < 0.015, Total Protein 7.2, Albumin 3.8, Globulin 3.4, Albumin/Globulin Ratio 1.1, Lipase 90 01/29/20 21:20: WBC 10.1, RBC 4.54 L, Hgb 14.2, Hct 41.9, MCV 92.3, MCH 31.3, MCHC 33.9, RDW Std Deviation 47.0 H, RDW Coeff of Po 14.1, Plt Count 303, MPV 9.1, Immature Gran % (Auto) 0.900, Neut % (Auto) 74.8 H, Lymph % (Auto) 10.2 L, Towns % (Auto) 13.7 H, Eos % (Auto) 0.2, Baso % (Auto) 0.2, Absolute Neuts (auto) 7.6, Absolute Lymphs (auto) 1.03, Nucleated RBC % 0 01/29/20 21:20: Magnesium 2.2 01/29/20 21:20: Hemoglobin A1c 5.4 01/29/20 21:40: COVID-19 (TREVON) Negative 01/30/20 05:55: WBC 6.7, RBC 3.99 L, Hgb 12.5 L, Hct 37.3 L, MCV 93.5, MCH 31.3, MCHC 33.5, RDW Std Deviation 46.4 H, RDW Coeff of Po 13.8, Plt Count 222, MPV 8.5, Immature Gran % (Auto) 0.300, Neut % (Auto) 61.9, Lymph % (Auto) 21.1, Towns % (Auto) 15.1 H, Eos % (Auto) 1.5, Baso % (Auto) 0.1, Absolute Neuts (auto) 4.1, Absolute Lymphs (auto) 1.41, Nucleated RBC % 0 01/30/20 05:55: Sodium 140, Potassium 3.7, Chloride 108 H, Carbon Dioxide 29.0, Anion Gap 3 L, BUN 40 H, Creatinine 1.34 H, Estim Creat Clear Calc 47.61, Est GFR (MDRD) Af Amer 66, Est GFR (MDRD) Non-Af 55 L, BUN/Creatinine Ratio 29.9 H, Glucose 108 H, Calcium 8.1 L, Total Bilirubin 0.70, AST 14 L, ALT 21, Alkaline Phosphatase 81, Total Protein 5.8 L, Albumin 3.2, Globulin 2.6, Albumin/Globulin Ratio 1.2 Current Medications Acetaminophen (Tylenol) 650 mg RECTAL Q4H PRN PRN PRN Reason: Pain Score 1-10/Temp > 100.7 F Albuterol Sulfate (Ventolin Aerosols) 2.5 mg INHALATION Q2H PRN PRN PRN Reason: Dyspnea, wheezing Dextrose (D50w Syringe) 0 gm IV X1 PRN; Protocol PRN Reason: Hypoglycemia Enoxaparin Sodium (Lovenox) 40 mg SC DAILY [facility] Glucagon () 1 mg IM .X1 PRN PRN Reason: Hypoglycemia Hydralazine HCl (Apresoline Iv) 10 mg IV Q4H PRN PRN PRN Reason: SBP > 160 Sodium Chloride () 1,000 mls @ 125 mls/hr IV .Q8H [facility] Last Infusion: 01/30/20 12:52 Dose: 0 mls/hr Documented by: Levetiracetam 500 mg/ Sodium (Chloride) 105 mls @ 400 mls/hr IV Q12 [facility] Last Admin: 01/30/20 12:46 Dose: 400 mls/hr Documented by: Pantoprazole Sodium 40 mg/ (Sodium Chloride) 110 mls @ 330 mls/hr IV Q12 [facility] Last Admin: 01/30/20 12:44 Dose: 330 mls/hr Documented by: Sodium Chloride () 250 mls @ 15 mls/hr IV .[id number] PRN PRN Reason: Saline Flush Morphine Sulfate () 4 mg IV Q3H PRN PRN PRN Reason: Pain Score 6-10/10 Nitroglycerin (Nitrostat) 0.4 mg SUBLINGUAL Q5M PRN PRN Reason: CARDIAC/CHEST PAIN Ondansetron HCl (Zofran) 4 mg IV Q8H PRN PRN PRN Reason: NAUSEA/VOMITING Prochlorperazine Edisylate (Compazine Iv) 5 mg IV Q4H PRN PRN PRN Reason: Breakthrough nausea/vomiting Sodium Chloride () 10 - 40 ml IV UD PRN PRN Reason: SALINE FLUSH Discharge Diet: No Restrictions Call your doctor if you observe: - - abdominal pain. abdominal distention. Home Medications: Medications to take at Discharge Cholecalciferol (VIT D3) [Vitamin D3] 1,000 unit PO DAILY 06/06/15 Aspirin [Aspirin EC] 81 mg PO DAILY 11/07/16 Levothyroxine [Synthroid] 137 mcg PO DAILY 11/11/16 Folic Acid 800 mg PO DAILY@0800 08/12/19 Acetaminophen [Tylenol] 1,000 mg PO Q8H PRN PRN tab 08/27/19 Methotrexate 10 mg PO MARTINEZ@0800,1600 tab 08/27/19 Oxcarbazepine 300 mg PO BID 01/29/20 Polyethylene Glycol 3350 [Miralax] 17 gm PO DAILY PRN 01/29/20 Primary Care Physician: Branden Velasquez MD [Primary Care Provider] - Within 2 Weeks Disposition: Home Minutes spent on discharge:: 32 Patient Condition:: Good Medical Necessity - Tobacco Use Smoking Status: Never smoker Tobacco Use: Non-smoker Meaningful Use Info Meaningful Use Diagnoses (Choose all that apply): None applicable Inpatient E&M: 10240 Disch Hosp
== END 2020-01-30 18:11 | disposition home or self-care (01) | DRG 389 ==
LOC: ED 23:31 → MS3 01-30 00:07
PROVIDERS: Admitting Provider Family Medicine; Emergency Provider Emergency Medicine; PCP Family Medicine; Referring Provider Family Medicine
DX: K56.609 Unspecified intestinal obstruction, unspecified as to partial versus complete obstruction (principal); N17.9 Acute kidney failure, unspecified; E86.0 Dehydration; I48.0 Paroxysmal atrial fibrillation; I25.10 Atherosclerotic heart disease of native coronary artery without angina pectoris; G40.909 Epilepsy, unspecified, not intractable, without status epilepticus; D50.9 Iron deficiency anemia, unspecified; R73.9 Hyperglycemia, unspecified; M06.9 Rheumatoid arthritis, unspecified; I35.0 Nonrheumatic aortic (valve) stenosis; E89.0 Postprocedural hypothyroidism; G62.9 Polyneuropathy, unspecified; G89.29 Other chronic pain; R29.6 Repeated falls; M10.9 Gout, unspecified; N40.0 Benign prostatic hyperplasia without lower urinary tract symptoms; K21.9 Gastro-esophageal reflux disease without esophagitis; Z79.82 Long term (current) use of aspirin; Z79.890 Hormone replacement therapy; Z79.899 Other long term (current) drug therapy; Z85.72 Personal history of non-Hodgkin lymphomas; Z98.1 Arthrodesis status; Z90.49 Acquired absence of other specified parts of digestive tract; Z85.850 Personal history of malignant neoplasm of thyroid
CPT/HCPCS: 36415; 71045; 74019; 74176; 74250; 80053; 83036; 83690; 83735; 84484; 85025; 87506; 87635; 97166; 97802; 99251; 99285; G2023; J7030; A4216; G0463; J2405; U0003

== ENCOUNTER → 2020-02-01 14:51 | Outpatient (CLI) | payer MEDICARE, SELFPAY ==
[2020-01-30 01:02] VITALS: BMI 26.9
[2020-02-01 18:08] LABS: Anion Gap 4 (5-15); BUN 18 mg/dL (7-18); Calcium,Total 8.4 mg/dL (8.5-10.1); Chloride 106 mmol/L (98-107); EST Glomerular Filtration Rate 77 mL/min (>60); Est Glom Filt Rate - Afr Amer 93 mL/min (>60); Glucose 90 mg/dL (74-106); Sodium Level 138 mmol/L (136-145)
== END ==
PROVIDERS: PCP Family Medicine; Referring Provider Family Medicine; Visit Provider Family Medicine
DX: R10.9 Unspecified abdominal pain (principal)
CPT/HCPCS: 36415; 80048

== ENCOUNTER → 2020-05-14 12:50 | Outpatient (CLI) | payer MEDICARE, SELFPAY ==
--- NOTE | 2020-05-14 13:01 | CT_ITS ---
STUDY: CT SOFT TISSUE NECK WITHOUT CONTRAST REASON FOR EXAM: Male, 79 years old. LYMPHOMA RADIATION DOSAGE (If Supplied By Facility): CTDIvol = ( 16.42 ) mGy, DLP = ( 1971.71 ) mGycm TECHNIQUE: The patient was scanned in a multi-detector CT scanner. High resolution transaxial imaging was performed without the administration of intravenous contrast material. Sagittal and coronal images were reconstructed. Individualized dose optimization techniques were used for this CT. COMPARISON: Comparison is made with prior study dated 10/25/2015. FINDINGS: Normal bilateral parotid glands. Normal bilateral hearing aid assembly supervisor spaces. Normal bilateral parapharyngeal spaces. Normal bilateral carotid spaces. Atherosclerotic plaque formation of the carotid bifurcations bilaterally. Normal bilateral sublingual and submandibular glands and spaces. Normal visualized nasopharynx. Normal retropharyngeal space. Normal perivertebral space. Normal visualized bilateral faucial tonsils. The visualized tongue, tongue base and oropharynx are normal. The visualized cervical lymph nodes (levels I-) are within normal size limits, and maintain normal morphology. There is no demonstrated solid or cystic mass lesion. Normal epiglottis, bilateral vallecula and hypopharynx. The pre-epiglottic and paraglottic adipose spaces are normal. Normal visualized bilateral piriform sinuses, aryepiglottic folds, vocal cords, and arytenoid-cricoid articulations. Normal subglottic trachea. Normal bilateral lobes of the thyroid gland. Normal visualized pulmonary apices. Opacification of the right maxillary sinus with calcifications suggestive of chronic sinusitis. There is multilevel degenerative changes of the cervical spine. CT/Soft Tissue Neck without Contr IMPRESSION: Chronic right maxillary sinusitis. No acute abnormality is seen. Electronically Signed: Caden Holm, at 8:59 EST , Service support ,
--- NOTE | 2020-05-14 13:01 | CT_ITS ---
STUDY: CT CHEST WITHOUT CONTRAST REASON FOR EXAM: Male, 79 years old. LYMPHOMA RADIATION DOSAGE (If Supplied By Facility): CTDIvol = ( 16.42 ) mGy, DLP = ( 1971.71 ) mGycm TECHNIQUE: Transaxial imaging was performed without the administration of intravenous contrast material. Multiplanar coronal and sagittal images were reformatted. Individualized dose optimization techniques were used for this CT. COMPARISON: 11/04/2016 FINDINGS: Thyroid is surgically absent. A left subclavian chest port is identified with tip extending to the mid SVC. Mild scattered fibrotic changes along the periphery of the right more than left lower lobes. No noncalcified nodule or localized groundglass opacity. No endobronchial lesions are identified. Axilla are grossly unremarkable without mariaa mass. There is no demonstrated pleural abnormality. Normal heart and pericardium. There are calcifications of the coronary arteries. Similar small lymph nodes of the mediastinum without a dominant mariaa mass. Normal hilar regions. Normal unenhanced pulmonary arteries. Scattered atherosclerosis of the thoracic aorta. No destructive bony process. There are degenerative changes of the thoracic spine with multilevel anterior spondylosis. Upper abdomen described on abdomen/pelvis CT report. CT/Chest without Contrast IMPRESSION: 1. Since 11/04/2016, stable exam. No pulmonary nodule/mass. No enlarging mariaa mass. Electronically Signed: Trung Billy MD ([place]) at 16:30 EST , Service support ,
--- NOTE | 2020-05-14 13:01 | CT_ITS ---
STUDY: CT ABDOMEN AND PELVIS WITHOUT CONTRAST REASON FOR EXAM: Male, 79 years old. LYMPHOMA RADIATION DOSAGE (If Supplied By Facility): CTDIvol = ( 16.42 ) mGy, DLP = ( 1971.71 ) mGycm TECHNIQUE: Transaxial images were obtained from the dome of the diaphragm to the symphysis pubis with oral contrast, and without intravenous contrast. Sagittal and coronal images were reconstructed. Individualized dose optimization techniques were used for this CT. COMPARISON: 01/29/2020, 11/04/2016 FINDINGS: Base of the chest described on chest CT report. Well-defined cystic lesions of the liver are stable with well-defined margins compatible with simple cysts, measuring up to 1.7 cm in the anterior right hepatic lobe. These have been stable on multiple prior comparison studies dating back to 2016. Normal gallbladder and extrahepatic biliary system. Normal spleen. Normal pancreas. Normal bilateral adrenal glands. Nonobstructing calculus of the right kidney measuring 3 mm on image 50 is stable. No hydronephrosis. 5 mm calculus of the left kidney on image 55 is stable. Normal visualized stomach. No large or small bowel wall thickening. Small calcification adjacent to the duodenum on image 47 is stable, likely postinflammatory, doubtful significance. Diverticulosis without evidence of diverticulitis. The appendix is visualized and appears normal. There is diffuse atherosclerotic calcification of the abdominal aorta, without a demonstrated aneurysm. Normal inferior vena cava. Normal retroperitoneum. No pelvic sidewall or retroperitoneal adenopathy. Normal urinary bladder. Prostate remains enlarged. Normal abdominal wall. Similar degenerative and operative changes of the lumbar spine. CT/Abdomen/Pel W ORAL Cont Only IMPRESSION: 1. Since 11/04/2016, stable exam. No intra-abdominal/pelvic mass/metastasis. 2. Stable chronic changes, as above and previously reported. Electronically Signed: Trung Billy MD ([place]) at 16:33 EST , Service support ,
[2020-05-14 13:22] LABS: Absolute Lymphocyte Count 1.67 X10^3/uL (0.83-4.51); Absolute Neutrophil Count 5.2 X10^3/uL (2.0-7.7); Basophil# 0.06 X10^3/uL; Basophil% 0.8 % (0-1); Eosinophil# 0.15 X10^3/uL; Hematocrit 38.8 % (40-54); Hemoglobin 12.7 g/dL (13.0-16.5); Lymphocyte # 1.67 X10^3/ul (4.0); Lymphocyte % 21.9 % (19-41); Mean Corp Hgb Conc 32.7 g/dL (32-36); Mean Corpuscular Hgb 31.1 pg (27.0-32.0); Mean Corpuscular Volume 95.1 fL (80-94); Mean Platelet Vol. 8.8 fl (6.2-12.0); Monocyte# 0.51 X10^3/uL; Monocyte% 6.7 % (0-10); NRBC Flagged by Analyzer 0 % (0-5); Neutrophil # 5.23 X10^3/uL (2.7-7.7); Neutrophil % 68.3 % (47-70); Platelet Count 224 K/mm3 (150-450); RBC Distribution Width CV 13.9 % (11.6-14.6); RBC Distribution Width SD 48.5 fl (35.1-43.9); Red Blood Count 4.08 M/mm3 (4.6-6.2); White Blood Count 7.6 K/mm3 (4.4-11.0)
[2020-05-14 13:43] LABS: Erythrocyte Sedimentation Rate < 1 mm/hr (0-20)
[2020-05-14 13:53] LABS: Vitamin D,25 Hydroxy 35.4 ng/mL
[2020-05-14 13:54] LABS: LDH 228 U/L (87-241)
[2020-05-14 14:08] LABS: ALB/GLOB Ratio 1.2 RATIO (0.9-2.4); AST(SGOT) 28 U/L (15-37); Alanine Aminotransfer ALT/SGPT 30 U/L (16-61); Albumin, Serum 3.8 g/dL (3.2-5.0); Alkaline Phosphatase 91 U/L (45-117); Anion Gap 6 (5-15); BUN 19 mg/dL (7-18); BUN/Creat Ratio 15.2 RATIO (10-20); Calcium,Total 8.5 mg/dL (8.5-10.1); Chloride 103 mmol/L (98-107); Creatinine, Serum 1.25 mg/dL (0.70-1.30); EST Glomerular Filtration Rate 59 mL/min (>60); Est Glom Filt Rate - Afr Amer 72 mL/min (>60); Globulin 3.1 g/dL (2.2-4.2); Glucose 98 mg/dL (74-106); Potassium 4.2 mmol/L (3.5-5.1); Protein, Total 6.9 g/dL (6.4-8.2); Sodium Level 138 mmol/L (136-145); T4 Free Direct 1.13 ng/dL (0.76-1.46); Thyroid Stim Hormone (TSH) < 0.01 uIU/mL (0.358-3.74)
== END ==
PROVIDERS: PCP Family Medicine; Referring Provider Internal Medicine Medical Oncology; Visit Provider Internal Medicine Medical Oncology
DX: E03.9 Hypothyroidism, unspecified (principal); C85.10 Unspecified B-cell lymphoma, unspecified site; M06.9 Rheumatoid arthritis, unspecified; E55.9 Vitamin D deficiency, unspecified; Z85.850 Personal history of malignant neoplasm of thyroid
CPT/HCPCS: 36415; 70490; 71250; 74176; 80053; 82306; 83615; 84439; 84443; 85025; 85652

== ENCOUNTER → 2020-05-18 07:50 | Outpatient (CLI) | payer MEDICARE, SELFPAY ==
[2020-05-16 14:37] VITALS: BMI 29.2
--- NOTE | 2020-05-18 07:52 | ECHOD_ITS ---
Reason For Study: MURMUR Procedure This was a 2D Doppler, Color Flow transthoracic echocardiogram. The study was technically difficult. Exam performed in department. Left Ventricle Normal LV size. Left ventricular systolic function is normal. The estimated ejection fraction is 60 %. Diastolic function is indeterminate. No regional wall motion abnormalities noted. Right Ventricle Normal RV size. Normal systolic function. Atria Normal left atrium. Normal right atrium. No doppler evidence for ASD. Mitral Valve There is mild mitral annular calcification. Normal mitral valve. Mild (1+) mitral valve insufficiency. Tricuspid Valve Normal tricuspid valve. Mild tricuspid valve insufficiency. Right ventricular systolic pressure estimated to be 31 mmHg. Aortic Valve Trisinus/trileaflet aortic valve. Moderate focal aortic valve thickening. Moderate focal aortic valve calcification. Moderate aortic stenosis. Pulmonic Valve The pulmonic valve is not well visualized. Great Vessels Normal sized aortic root. Pericardium/Pleural No pericardial effusion. MMode/2D Measurements & Calculations LVIDd: 3.4 cm IVSd: 1.2 cm LVOT diam: 2.0 cm LVIDs: 2.4 cm LVPWd: 1.1 cm LVOT area: 3.1 cm2 RVDd: 3.3 cm FS: 28.5 % Ao root diam: 3.1 cm LAV(MOD-bp): 48.1 ml LVAd ap4: 30.5 cm2 LAV(MOD-bp) Indexed: 22.6 ml/m2 EDV(MOD-sp4): 90.6 ml LAV(MOD-sp2): 45.5 ml EDV(sp4-el): 93.1 ml LAV(MOD-sp4): 45.7 ml LVAs ap4: 17.8 cm2 ESV(MOD-sp4): 37.9 ml ESV(sp4-el): 38.2 ml EF(MOD-sp4): 58.1 % EF(sp4-el): 59.0 % SV(MOD-sp4): 52.7 ml SV(sp4-el): 54.9 ml LA A4 area: 17.2 cm2 LA dimension(2D): 3.2 cm RA A4 area: 15.1 cm2 Time Measurements MV dec time: 0.28 sec Doppler Measurements & Calculations MV E max rafa: 95.5 cm/sec Lat Peak E' Rafa: 8.8 cm/sec Med Peak E' Rafa: 6.5 cm/sec MV A max rafa: 112.3 cm/sec E/E' lat: 10.8 E/E' med: 14.8 MV E/A: 0.85 Ao V2 max: 308.1 cm/sec LV V1 max: 109.2 cm/sec SV(LVOT): 82.8 ml Ao max P.0 mmHg LV V1 max P.8 mmHg Ao V2 mean: 234.7 cm/sec LV V1 mean P.7 mmHg Ao mean P.0 mmHg LV V1 mean: 75.1 cm/sec Ao V2 VTI: 71.4 cm LV V1 VTI: 26.5 cm DORA(I,D): 1.2 cm2 DORA(V,D): 1.1 cm2 TR max rafa: 263.4 cm/sec TR max P.8 mmHg Interpretation Summary The study was technically difficult. Left ventricular systolic function is normal. The estimated ejection fraction is 60 %. There is mild mitral annular calcification. Mild (1+) mitral valve insufficiency. Mild tricuspid valve insufficiency. Moderate aortic stenosis. Right ventricular systolic pressure estimated to be 31 mmHg. Diastolic function is indeterminate. Ordering Physician: Branden Velasquez Referring Physician: Branden Velasquez Performed By: Meena Solitario RDCS
== END ==
PROVIDERS: PCP Family Medicine; Referring Provider Family Medicine; Visit Provider Family Medicine
DX: R01.1 Cardiac murmur, unspecified (principal)
CPT/HCPCS: 93306

== ENCOUNTER → 2020-09-10 10:57 | Outpatient (CLI) | payer MEDICARE, SELFPAY ==
[2020-05-16 14:37] VITALS: BMI 29.2
[2020-09-10 12:37] LABS: Thyroid Stim Hormone (TSH) 0.01 uIU/mL (0.358-3.74)
== END ==
PROVIDERS: PCP Family Medicine; Referring Provider Family Medicine; Visit Provider Family Medicine
DX: E03.9 Hypothyroidism, unspecified (principal)
CPT/HCPCS: 36415; 84443

== ENCOUNTER 2021-04-05 14:08 | Inpatient (IN) | payer MEDICARE, SELFPAY ==
[2021-04-05 14:10] VITALS: BP 90/57; PULSE 102; RESP 18; TEMP 36.2; O2SAT 100; BMI 28.5
[2021-04-05 15:35] LABS: Absolute Lymphocyte Count 0.87 X10^3/uL (0.83-4.51); Basophil# 0.03 X10^3/uL; Basophil% 0.2 % (0-1); Eosinophil# 0.01 X10^3/uL; Eosinophils% 0.1 % (0-5); Hematocrit 44.9 % (40-54); Hemoglobin 14.9 g/dL (13.0-16.5); Lymphocyte # 0.87 X10^3/ul (0.83-4.51); Lymphocyte % 5.4 % (19-41); Mean Corp Hgb Conc 33.2 g/dL (32-36); Mean Corpuscular Hgb 30.8 pg (27.0-32.0); Mean Platelet Vol. 8.7 fl (6.2-12.0); Monocyte# 1.08 X10^3/uL; Monocyte% 6.7 % (0-10); NRBC Flagged by Analyzer 0 % (0-5); Neutrophil # 14.02 X10^3/uL (2.7-7.7); Neutrophil % 87.2 % (47-70); Platelet Count 391 K/mm3 (150-450); RBC Distribution Width CV 13.6 % (11.6-14.6); RBC Distribution Width SD 45.6 fl (35.1-43.9); Red Blood Count 4.83 M/mm3 (4.6-6.2); White Blood Count 16.1 K/mm3 (4.4-11.0)
[2021-04-05 15:42] LABS: Anion Gap 5 (5-15); BUN 19 mg/dL (7-18); BUN/Creat Ratio 12.8 RATIO (10-20); Calcium,Total 10.1 mg/dL (8.5-10.1); Chloride 102 mmol/L (98-107); Creatinine, Serum 1.49 mg/dL (0.70-1.30); EST Glomerular Filtration Rate 48 mL/min (>60); Est Glom Filt Rate - Afr Amer 58 mL/min (>60); Estimated Creatinine Clearance 42.11 ml/min; Glucose 162 mg/dL (74-106); Potassium 4.1 mmol/L (3.5-5.1); Sodium Level 138 mmol/L (136-145)
[2021-04-05 16:44] VITALS: BP 121/72; PULSE 84; RESP 16; TEMP 36.4; O2SAT 95
[2021-04-05 17:16] VITALS: BP 125/73; PULSE 73; RESP 16; TEMP 36.7; O2SAT 94
[2021-04-05] MEDS: Ondansetron 4 MG/2 ML Vial IV (17:28)
[2021-04-05] MEDS: 0.9% Normal Saline 1,000 ML 500 ML IV (17:38)
--- NOTE | 2021-04-05 17:55 | EDS_ITS ---
HPI History of Present Illness Chief Complaint: Nausea/Vomiting Informant: patient and spouse/S.O. Onset/Context/Timing Onset: Today and Hours Context: Sudden Onset Timing: Intermittent Quality: Nausea and vomiting Location: GI Current Severity: Mild Maximum Severity: Severe Worsened by: Nothing Relieved by: Nothing Associated Symptoms Associated Symptoms: Lightheadedness Narrative Narrative: Patient is a 80-year-old male with multiple local problems who sustained acute kidney injury due to nausea vomiting approxi-1 year ago. He waited several days prior to coming in. He presents now after several hours. He is not take anything for the nausea and vomiting. He denies diarrhea. He denies fever, chills night sweats. [place] headache. Eyes visual, ocular auditory symptoms. Denies cardiac respiratory symptoms. He does report decreased urine output. He denies myalgias arthralgias. He denies any ill contacts. Prior similar symptoms: Yes Recent Illness/Hospitalization: No PFSH PFSH Medical History Arthritis DDD (degenerative disc disease) GERD (gastroesophageal reflux disease) Gout Hernia History of left heart catheterization (LHC) (~07/23/04) Lymphoma Skin cancer Home Medications cholecalciferol (vitamin D3) [Vitamin D3] 2,000 unit PO DAILY 06/06/15 [History Last Taken 05/20/17] aspirin 81 mg PO DAILY 11/07/16 [History Last Taken 05/20/17] levothyroxine 137 mcg PO DAILY 11/11/16 [History Last Taken 05/19/17] folic acid 800 mg PO DAILY@0800 08/12/19 [History Last Taken Unknown] acetaminophen 1,000 mg PO Q8H PRN PRN tab 08/27/19 [Rx Last Taken Unknown] methotrexate sodium 10 mg PO MARTINEZ@0800,1600 tab 08/27/19 [Rx Last Taken 01/22/20] oxcarbazepine 300 mg PO BID 01/29/20 [History Last Taken Unknown] polyethylene glycol 3350 17 gm PO DAILY PRN 01/29/20 [History Last Taken Unknown] Allergy/AdvReac Type Severity Reaction Status Date / Time Iodinated Contrast Media Allergy Intermediate Rash Verified 04/05/21 14:13 [CONTRASTS] Family History Father Leukemia Surgical History H/O Spinal surgery History of carpal tunnel surgery History of cataract extraction History of cholecystectomy History of knee replacement History of thyroidectomy Social History (Updated 04/05/21 @ 17:[address] Franklin Rodriguez MD) household members: spouse Smoking Status: Never smoker alcohol intake: never substance use type: does not use ROS ROS ED Constitutional Constitutional ED: Denies chills, fever(s), subjective, sweats or weight loss Eyes Eyes: Denies blurry vision, change in vision or diplopia ENT ENT ED: Denies ear pain, rhinorrhea or sore throat Cardiovascular Cardiovascular: Denies chest pain, palpitations or racing heartbeat Respiratory/Chest Respiratory/Chest: Denies cough, dyspnea or dyspnea on exertion Gastrointestinal Gastrointestinal: Reports nausea and vomiting; Denies abdominal pain, constipation or diarrhea Genitourinary Genitourinary ED: Denies dysuria, hematuria or urinary frequency Musculoskeletal Musculoskeletal: Denies arthralgias, back pain, myalgias or neck pain Integumentary Denies rash Neurologic Neurologic: Reports weakness; Denies headache(s) or paresthesias Endocrine Endocrinology: Denies polydipsia, polyphagia or polyuria Allergic/Immunologic Allergic/Immunologic ED: Denies urticaria EXAM Physical Exam Const Vital Signs: 04/05/21 14:10 04/05/21 16:44 04/05/21 17:16 Temperature 97.2 F L 97.6 F L 98.1 F Temperature Source Temporal Oral Oral Pulse Rate 102 H 84 73 Respiratory Rate 18 16 16 Blood Pressure 90/57 L 121/72 H 125/73 H Blood Pressure Mean 68 88 90 Pulse Ox 100 95 94 Oxygen Delivery Method Room Air Room Air Room Air 04/05/21 18:15 04/05/21 21:38 Temperature 98.2 F Temperature Source Oral Pulse Rate 74 88 Respiratory Rate 16 18 Blood Pressure 130/72 H 116/69 Blood Pressure Mean 91 84 Pulse Ox 94 99 Oxygen Delivery Method Room Air Room Air Positive well nourished and well developed General Appearance ED: well developed and other Patient does not appear well. Does not appear toxic. Blood pressure initially was low. HEENT Reports dry mucous membranes HEENT Narrative: Head is atraumatic normocephalic. Ears normal. Nares patent. Mouth ED: Yes dry mucous membranes Mouth: dry mucous membranes Eyes PERRL and EOMs intact bilaterally General Eye ED: Negative for pale conjunctiva or scleral icterus Neck no lymphadenopathy, supple and no JVD Resp normal respiratory effort and clear to auscultation bilaterally Cardio regular rate, regular rhythm, S1 normal heart sound, S2 normal heart sound and no murmurs GI normal to inspection, nondistended, normoactive bowel sounds, non-tender and non-distended Palpation: soft Back/Spine no CVA tenderness Cervical Spine: Negative for cervical spine tenderness Thoracic Spine / Upper Back: Negative for thoracic spinal tenderness or paraspinal muscle tenderness Extremity normal to inspection General Extremety ED: Negative for edema or tenderness General Extremity: Negative for edema Neuro oriented x3 and CN's II-XII intact bilaterally Sensorium / Orientation: alert Motor Exam: strength 5/5 throughout Psych mental status grossly normal Skin no rashes or lesions noted and no wounds MDM MDM MDM Narrative Medical decision making narrative: Will obtain blood work to assess renal function. Patient's creatinine is slightly elevated 1.49. This is approximately baseline. White count is elevated 16.1 with demargination. This is probably due to the nausea vomiting and current illness. Patient x-ray was nondiagnostic. Since he has fecal appearing emesis CT of the abdomen with p.o. contrast was ordered. IV was not because his creatinine is elevated and GFR is 48. Lab Data Attestation: I reviewed the patient's lab results. Labs: Laboratory Results - last 24 hr 04/05/21 04/05/21 14:17 14:17 WBC 16.1 H RBC 4.83 Hgb 14.9 Hct 44.9 MCV 93.0 MCH 30.8 MCHC 33.2 RDW Std Deviation 45.6 H RDW Coeff of Po 13.6 Plt Count 391 MPV 8.7 Immature Gran % (Auto) 0.400 Neut % (Auto) 87.2 H Lymph % (Auto) 5.4 L [place] % (Auto) 6.7 Eos % (Auto) 0.1 Baso % (Auto) 0.2 Absolute Neuts (auto) 14.0 H Absolute Lymphs (auto) 0.87 Nucleated RBC % 0 Sodium 138 Potassium 4.1 Chloride 102 Carbon Dioxide 31.0 Anion Gap 5 BUN 19 H Creatinine 1.49 H Estim Creat Clear Calc 42.11 Est GFR (MDRD) Af Amer 58 L Est GFR (MDRD) Non-Af 48 L BUN/Creatinine Ratio 12.8 Glucose 162 H Calcium 10.1 Radiography Diagnostic Testing: Radiology Impression Acute Abdomen Series 04/05/21 19:05 IMPRESSION: No acute chest disease. No intestinal obstruction. Consider CT for further evaluation. Electronically Signed: Candice Rodgers MD at 19:50 EDT Tel , Service support , Discharge Plan Triage Chief Complaint: Nausea/Vomiting ED Provider: Franklin Rodriguez Dx/Rx/DC Orders Clinical Impression: Painless hematuria, Calculus of left kidney Instructions: ED Hematuria, ED Kidney Stone Undescended No ... Prescriptions: No Action cholecalciferol (vitamin D3) [Vitamin D3] 1,000 UNIT tablet 2,000 unit PO DAILY RF: 0 aspirin 81 MG tablet,delayed release (DR/EC) 81 mg PO DAILY RF: 0 levothyroxine 137 MCG tablet 137 mcg PO DAILY RF: 0 folic acid 1 MG tablet 800 mg PO DAILY@0800 RF: 0 acetaminophen 500 MG tablet 1,000 mg PO Q8H PRN PRN (Reason: Pain Score 1-10/10) RF: 0 methotrexate sodium 2.5 MG tablet 10 mg PO MARTINEZ@0800,1600 RF: 0 oxcarbazepine 300 MG tablet 300 mg PO BID RF: 0 polyethylene glycol 3350 17 GM packet 17 gm PO DAILY PRN (Reason: Constipation) RF: 0 Primary Care Provider: Branden Velasquez Referrals: Branden Velasquez MD [Primary Care Provider] - 1-2 Weeks Disposition Disposition: Home, Self Care
[2021-04-05 18:15] VITALS: BP 130/72; PULSE 74; RESP 16; TEMP 36.8; O2SAT 94
--- NOTE | 2021-04-05 19:05 | RAD_ITS ---
STUDY: X-RAY - ACUTE ABDOMINAL SERIES REASON FOR EXAM: Male, 80 years old. Pain, nausea and vomiting, fecal appearing emesis TECHNIQUE: Single view of the chest. Supine, frontal view(s) of the abdomen were obtained. COMPARISON: To May 2020 FINDINGS: There is no pneumothorax, pulmonary edema or pleural effusions. Interstitial markings are coarsened, likely atelectasis and mild scarring. Heart size is normal. Left subclavian port is in place terminating with its tip in the lower SVC. There is no intestinal obstruction. There is lower lumbar pedicular screw fixation. RAD/Acute Abdomen Inc Chest IMPRESSION: No acute chest disease. No intestinal obstruction. Consider CT for further evaluation. Electronically Signed: Candice Rodgers MD at 19:50 EDT Tel , Service support ,
--- NOTE | 2021-04-05 20:50 | CT_ITS ---
HISTORY: Fecal appearing emesis TECHNIQUE: Multiple axial images were obtained of the abdomen and pelvis without IV contrast. Oral contrast administered. Coronal and sagittal reformats obtained. A radiation dose optimization technique was used for this scan. COMPARISON: May 14, 2020 FINDINGS: # of images incl. paperwork: 590 LUNG BASES: Subsegmental atelectasis within the bilateral lung bases. LIVER T BILIARY TRACT: Unremarkable gallbladder. Hepatic 2.3 cm cyst. ADRENAL GLANDS: Unremarkable. SPLEEN: Unremarkable. PANCREAS: Unremarkable. KIDNEYS/URETERS/BLADDER: Nonobstructive small bilateral renal stones. Trace senescent perinephric stranding, unchanged from prior exam. Unremarkable ureters and bladder. LYMPH NODES: No suspicious adenopathy. STOMACH, SMALL AND LARGE BOWEL: No acute gastric finding. Diffuse mid small bowel distention up to 4.5 cm. Terminal ileum is decompressed. Local transition site is not identified, likely in the right anterior lower abdomen. Normal appendix. Small amount of oral contrast is noted within the cecum. No acute colonic finding. ASCITES/FREE AIR: No free fluid or free air. AORTA: Atherosclerosis without ectasia. PELVIS: Prostate 6.3 cm transverse. MUSCULOSKELETAL: No acute osseous finding. Lumbar laminectomy of posterior trans-pedicle fixation. CT/Abdomen/Pel W ORAL Cont Only IMPRESSION: 1. Mid small bowel distention with decompressed distal ileum and passage of some oral contrast in the cecum suggestive of partial obstruction or inflammation and ileus. CT or radiographic follow-up recommended. 2. Large prostate. 3. Nonobstructive nephrolithiasis. Individualized dose optimization techniques were used for this CT. at 0009 Reported and signed by: Vic Contreras MD Electronically Signed: Vic Contreras MD at 0:08 EDT Tel , Service support ,
[2021-04-05 21:38] VITALS: BP 116/69; PULSE 88; RESP 18; O2SAT 99
--- NOTE | 2021-04-06 00:32 | HP.PCM.HOS_ITS ---
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 He noted following each bout of emesis he would have a small stool. He denies any markedly associated abdominal pain or cramping sensation. He denies any recent fever, chills, headache, cough or dyspnea. Work-up in the ED included 97.2, heart rate initially 102 with improvement to 88, BP initially 90/57 with most recent 160/69, respiratory rate 17, 98% on room air, CBC with WBC 16.1, hemoglobin 14.9, platelets 391 with left shift, BMP with BUN/creati nine 19/1.49, glucose 162, acute abdominal series with no acute cardiopulmonary findings with no evidence of intestinal obstruction, follow-up CT abdomen and pelvis with with mid small bowel distention with decompressed distal ileum and passage of some oral contrast in the cecum suggestive of a partial obstruction or inflammation and ileus, large prostate, nonobstructive nephrolithiasis. In the ED NGT placed with reported improvement in his intractable nausea and emesis. [facility] Medical History Arthritis DDD (degenerative disc disease) GERD (gastroesophageal reflux disease) Gout Hernia History of left heart catheterization (LHC) (~07/23/04) Lymphoma Skin cancer Home Medications cholecalciferol (vitamin D3) [Vitamin D3] 2,000 unit PO DAILY 06/06/15 [History Last Taken 05/20/17] aspirin 81 mg PO DAILY 11/07/16 [History Last Taken 05/20/17] levothyroxine 137 mcg PO DAILY 11/11/16 [History Last Taken 05/19/17] folic acid 800 mg PO DAILY@0800 08/12/19 [History Last Taken Unknown] acetaminophen 1,000 mg PO Q8H PRN PRN tab 08/27/19 [Rx Last Taken Unknown] methotrexate sodium 10 mg PO MARTINEZ@0800,1600 tab 08/27/19 [Rx Last Taken 01/22/20] oxcarbazepine 300 mg PO BID 01/29/20 [History Last Taken Unknown] polyethylene glycol 3350 17 gm PO DAILY PRN 01/29/20 [History Last Taken Unknown] Allergy/AdvReac Type Severity Reaction Status Date / Time Iodinated Contrast Media Allergy Intermediate Rash Verified 04/05/21 14:13 [CONTRASTS] Family History Father Leukemia other (Patient with no marked maternal history however she did pass secondary to a trauma at age 51.) Surgical History H/O Spinal surgery History of carpal tunnel surgery History of cataract extraction History of cholecystectomy History of knee replacement History of thyroidectomy Social History (Updated 04/06/21 @ 01:[address] Daniella Sousa MD) household members: none Smoking Status: Never smoker alcohol intake: never substance use type: does not use ROS ROS Narrative Admission Review of Systems: CONSTITUTIONAL: No weight loss, fever, chills, + weakness or fatigue. HEENT: Eyes: No visual loss, blurred vision, double vision or yellow sclerae. Ears, Nose, Throat: No hearing loss, sneezing, congestion, runny nose or sore throat. SKIN: No rash or itching, lesions, wounds. CARDIOVASCULAR: No chest pain, chest pressure or chest discomfort, palpitations, edema, orthopnea, syncopal events. RESPIRATORY: No shortness of breath, cough or sputum, wheezing, hemoptysis. GASTROINTESTINAL: + anorexia, nausea, vomiting, soft stools, distention, no specific abdominal pain, melena, BRBPR. GENITOURINARY: No dysuria, frequency, urgency or retention. NEUROLOGICAL: No headache, dizziness, syncope, paralysis, ataxia, numbness or tingling in the extremities, focal weakness, change in bowel or bladder control, seizure. MUSCULOSKELETAL: No muscle, back pain, joint pain or stiffness. HEMATOLOGIC: + anemia, bleeding or bruising. LYMPHATICS: No enlarged nodes. No history of splenectomy. PSYCHIATRIC: No history of depression or anxiety. ENDOCRINOLOGIC: No reports of sweating, cold or heat intolerance. No polyuria or polydipsia. ALLERGIES: No history of asthma, hives, eczema or rhinitis. Vital Signs Vital Signs Vital Signs: 04/05/21 14:10 04/05/21 16:44 04/05/21 17:16 Temperature 97.2 F L 97.6 F L 98.1 F Temperature Source Temporal Oral Oral Pulse Rate 102 H 84 73 Respiratory Rate 18 16 16 Blood Pressure 90/57 L 121/72 H 125/73 H Blood Pressure Mean 68 88 90 Pulse Ox 100 95 94 Oxygen Delivery Method Room Air Room Air Room Air 04/05/21 18:15 04/05/21 21:38 Temperature 98.2 F Temperature Source Oral Pulse Rate 74 88 Respiratory Rate 16 18 Blood Pressure 130/72 H 116/69 Blood Pressure Mean 91 84 Pulse Ox 94 99 Oxygen Delivery Method Room Air Room Air Weight Weight: 205 lb Body Mass Index (BMI) 28.5 Physical Exam Narrative Physical Examination: General: awake, alert, oriented x 3 and cooperative, seated upright in the ED bed, fatigued appearance, NG tube in place, moderate output noted, notes nausea is subsiding however onset of hiccups during evaluation. Skin: normal color, turgor, no icterus, cyanosis. HEENT: AT/NC, EOMI, PERRLA, dry MM, NG tube in place, no carotid bruits or JVD noted. Lungs: Diminished, greater bases, moderate effort, no rales, ronchi or wheezing. Heart: Regular rate and rhythm; no gallop, rub audible. Abdomen: soft, no severe tenderness to palpation, absent bowel sounds, mildly distended but patient notes this is improved since NG tube placement, no obvious HSM. Extremities: no cyanosis, clubbing, or edema. Neurological: patient awake, alert, oriented as noted; cognitive function intact; pupils equally reactive to light and accomodation; cranial nerves II-XII grossly normal, moving all 4 extremities, no focal deficits, strength moderately to severely global decrease secondary to acute presentation. Psychiatric: affect appears fatigued otherwise normal, no acute evidence of depressive or anxiety feelings. Results Lab / Micro Data Result Diagrams: 04/05/21 14:17 04/05/21 14:17 Labs: Laboratory Results - last 24 hr 04/05/21 14:17: WBC 16.1 H, RBC 4.83, Hgb 14.9, Hct 44.9, MCV 93.0, MCH 30.8, MCHC 33.2, RDW Std Deviation 45.6 H, RDW Coeff of Po 13.6, Plt Count 391, MPV 8.7, Immature Gran % (Auto) 0.400, Neut % (Auto) 87.2 H, Lymph % (Auto) 5.4 L, [place] % (Auto) 6.7, Eos % (Auto) 0.1, Baso % (Auto) 0.2, Absolute Neuts (auto) 14.0 H, Absolute Lymphs (auto) 0.87, Nucleated RBC % 0 04/05/21 14:17: Sodium 138, Potassium 4.1, Chloride 102, Carbon Dioxide 31.0, Anion Gap 5, BUN 19 H, Creatinine 1.49 H, Estim Creat Clear Calc 42.11, Est GFR (MDRD) Af Amer 58 L, Est GFR (MDRD) Non-Af 48 L, BUN/Creatinine Ratio 12.8, Glucose 162 H, Calcium 10.1 Radiology Impression Acute Abdomen Series 04/05/21 19:05 IMPRESSION: No acute chest disease. No intestinal obstruction. Consider CT for further evaluation. Electronically Signed: Candice Rodgers MD at 19:50 EDT Tel , Service support , Abdomen CT 04/05/21 20:50 IMPRESSION: 1. Mid small bowel distention with decompressed distal ileum and passage of some oral contrast in the cecum suggestive of partial obstruction or inflammation and ileus. CT or radiographic follow-up recommended. 2. Large prostate. 3. Nonobstructive nephrolithiasis. Individualized dose optimization techniques were used for this CT. at 0009 Reported and signed by: Vic Contreras MD Electronically Signed: Vic Contreras MD at 0:08 EDT Tel , Service support , Assessment & Plan Assessment/Plan (1) Small bowel obstruction, partial: PLAN: The patient is a 80 y/o M w/ PMHx: PAF, Non-obstructive CAD, Rheumatoid arthritis, Seizure disorder, Chronic back pain with DDD w/ parker ropathy, OA with frequent falls, GERD, Hx Diffuse Large B Cell Lymphoma, Gout, Hypothyroidism, Chronic constipation, History of prior SBO 01/29/20 admission which resolved conservatively who presents to the [facility] ED on 04/06/21 with history of intractable nausea, emesis, abdominal mild distention starting at ~ 5 pm the day prior to ED presentation noting recent bowel movements, small however and soft on day of presentation. 1. Abdominal pain, nausea, emesis secondary to partial SBO: Will admit to [facility], maintain on IVFs, will continue NGT to suction pending surgery evaluation, strict I&Os, IV pain/anti-emetics PRN, serial KUB as needed to monitor bowel function, Famotidine IV, maintain NPO on bowel rest. General surgery consulted, pending. 2. Incidentally reported enlarged prostate: Given current acute presentation will defer immediate PSA testing, will benefit from close follow-up outpatient. 3. CKD stage III, unclear subtype with mild acute renal insufficiency: Secondary to GI losses, nausea, emesis, admission BUN/Cr 19/1.49, prior baseline creatinine noted to be 0.9-1.2. We will continue to judiciously hydrate, repeat CMP in AM. 4. Hyperglycemia: Admission glucose 165, will obtain HgbA1c to be cautious, possibly stress response. 5. Diffuse Large B Cell Lymphoma: Following w/ Dr. 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 6. 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 We will hold patient oral home Synthroid regimen. If prolonged n.p.o. status may consider 1/2 oral home regimen as IV dosing. 7. Chronic back pain with DDD with neuropathy: Encourage frequent position changes, fall precautions. 8. Seizure disorder: Noted to be focal in nature, holding oral regimen, transition in interim to Keppra IV to be cautious. 9. Rheumatoid arthritis: Holidng home oral methotrexate and leucovorin, resume once pSBO resolved. 10. GERD: Maintain on IV famotidine. 11. PAF: Not on any rhythm or rate agent nor any anticoagulant therapy, currently SR. 12. Nonobstructive CAD: Holding asa, not on any BB/ACEI/ARB nor statin therapy, BP normal range, CKD history as noted. 13. DVT Prophylaxis: SCDS, lovenox. 14. CODE status: Patient HCPCHIQUITA is his daughter who is present and living will is currently in place. Discussed CODE status at length including difference between FULL code, DNR-CCA and DNR-CC status. Following discussions about the differences in these status, requested Full Code status but noted that if further intervention was futile then he would prefer transition to comfort at that time. Advanced Care Planning Face to Face Time: 16 minutes. Charges/Coding Visit Charges Inpatient E&M: 45031 Init Hosp L3 Procedures Hospitalists Procedures: 57797 Advncd Care Plan 30 Min
[2021-04-06] MEDS: Oxymetazoline 0.05% 1 SPRAY SPRAY.BTL 2 SPRAY NASAL (00:55)
[2021-04-06] MEDS: Lidocaine 4% 5 ML Ampul 2 ML INHALATION (00:56)
--- NOTE | 2021-04-06 01:00 | RAD_ITS ---
HISTORY: NG Insertion COMPARISON: 04/05/21 FINDINGS: # of images incl. paperwork: 1 Frontal view of the chest demonstrates an enteric tube with subdiaphragmatic tip and side port projecting over the expected region of the stomach. Left chest port is unchanged. No focal consolidation effusion or pneumothorax. Prominent gastric and colonic gas. RAD/Abdomen Single View (Portable) IMPRESSION: Subdiaphragmatic enteric tube projecting in good position. at [id number] Reported and signed by: Vic Contreras MD Electronically Signed: Vic Contreras MD at 5:25 EDT Tel , Service support ,
[2021-04-06 01:13] VITALS: BP 116/63; PULSE 86; RESP 18; TEMP 36.6; O2SAT 94
[2021-04-06] MEDS: Ondansetron 4 MG/2 ML Vial IV (01:13)
[2021-04-06 01:51] VITALS: BMI 26.6
[2021-04-06 01:55] LABS: Magnesium 2.3 mg/dL (1.6-2.6); Phosphorus 4.2 mg/dL (2.5-4.9)
[2021-04-06 02:10] VITALS: BP 112/55; PULSE 82; RESP 16; TEMP 37.1; O2SAT 96
--- NOTE | 2021-04-06 02:18 | PCS.PANDOC ---
PANDEMIC DOCUMENTATION INITIATED: Date 04/06/21 Time: 217
[2021-04-06] MEDS: 0.9% Normal Saline 1,000 ML 100 ML IV ×3 (02:32→23:24)
[2021-04-06] MEDS: 0.9% Saline Lock 10 ML Syringe IV ×2 (02:32→09:24)
--- NOTE | 2021-04-06 05:30 | RAD_ITS ---
STUDY: X-RAY - ABDOMEN/PELVIS REASON FOR EXAM: Male, 80 years old. partial SBO TECHNIQUE: Single AP view of the abdomen / pelvis. COMPARISON: 04/06/2021 at 00 59 FINDINGS: Nasogastric tube coiled in left upper quadrant likely in the stomach. No change in the dilatation of multiple loops of small bowel possibly consistent with a partial small bowel obstruction. The visualized liver, spleen and kidneys are grossly normal in size and morphology. Normal soft tissue structures. Mild levoscoliosis lumbar spine. Status post transpedicular fixation the lower lumbar spine. RAD/Abdomen Single View (Portable) IMPRESSION: 1. Nasogastric tube coiled in the stomach. 2. No change in partial small bowel obstruction. Electronically Signed: Tuan Jonas MD at 8:29 EDT Tel , Service support ,
[2021-04-06 06:40] LABS: Absolute Lymphocyte Count 1.13 X10^3/uL (0.83-4.51); Absolute Neutrophil Count 7.1 X10^3/uL (2.0-7.7); Basophil# 0.03 X10^3/uL; Basophil% 0.3 % (0-1); Eosinophil# 0.06 X10^3/uL; Eosinophils% 0.7 % (0-5); Hematocrit 36.9 % (40-54); Lymphocyte # 1.13 X10^3/ul (0.83-4.51); Lymphocyte % 12.3 % (19-41); Mean Corp Hgb Conc 32.5 g/dL (32-36); Mean Corpuscular Hgb 31.3 pg (27.0-32.0); Mean Corpuscular Volume 96.1 fL (80-94); Mean Platelet Vol. 8.4 fl (6.2-12.0); Monocyte# 0.88 X10^3/uL; Monocyte% 9.6 % (0-10); NRBC Flagged by Analyzer 0 % (0-5); Neutrophil # 7.05 X10^3/uL (2.7-7.7); Neutrophil % 76.8 % (47-70); Platelet Count 271 K/mm3 (150-450); RBC Distribution Width SD 48.3 fl (35.1-43.9); Red Blood Count 3.84 M/mm3 (4.6-6.2); White Blood Count 9.2 K/mm3 (4.4-11.0)
[2021-04-06 07:02] LABS: AST(SGOT) 17 U/L (15-37); Alanine Aminotransfer ALT/SGPT 23 U/L (16-61); Albumin, Serum 2.9 g/dL (3.2-5.0); Alkaline Phosphatase 75 U/L (45-117); Anion Gap 4 (5-15); BUN 25 mg/dL (7-18); BUN/Creat Ratio 19.1 RATIO (10-20); Calcium,Total 8.6 mg/dL (8.5-10.1); Chloride 108 mmol/L (98-107); Creatinine, Serum 1.31 mg/dL (0.70-1.30); EST Glomerular Filtration Rate 56 mL/min (>60); Est Glom Filt Rate - Afr Amer 68 mL/min (>60); Globulin 2.9 g/dL (2.2-4.2); Glucose 117 mg/dL (74-106); Potassium 4.1 mmol/L (3.5-5.1); Protein, Total 5.8 g/dL (6.4-8.2); Sodium Level 139 mmol/L (136-145)
[2021-04-06 07:57] VITALS: O2SAT 93
[2021-04-06 08:57] LABS: Hemoglobin A1c 5.5 % (3.8-5.6)
[2021-04-06 09:07] LABS: Procalcitonin 0.12 ng/mL (0.00-0.09)
[2021-04-06 09:13] VITALS: BP 118/67; PULSE 76; RESP 18; TEMP 36.6; O2SAT 100
[2021-04-06] MEDS: Famotidine 200 MG/20 ML MDV 20 MG in 0.9% Normal Saline (Pres. free 8 ML 300 MG IV ×2 (09:24→20:33)
[2021-04-06] MEDS: Enoxaparin 40 MG/0.4 ML Syringe SC (09:24)
--- NOTE | 2021-04-06 10:03 | EX.PCM.CON.S ---
Assessment & Plan Assessment/Plan (1) Small bowel obstruction, partial: PLAN: This is an 80-year-old gentleman with complex medical history but minimal past abdominal surgical history who presents with a second episode of obstructive symptoms (first presentation was just over a year ago and resolved with conservative management). Patient's symptoms of nausea, vomiting, and abdominal pain are significantly improved and he is currently passing flatus. Agree with radiology, the patient's CT scan is suggestive of partial SBO versus ileus. I have informed the patient that I would like to confirm he is having bowel movements before his nasogastric tube is removed and we begin a diet challenge. However, if he is consistent with this flatus the tube could be removed earlier and we simply await a bowel movement. I have also offered him a suppository to try to stimulate further bowel activity. At this time he declines and would like to give additional time to have a bowel movement spontaneously. Recommend: ?Continue nasogastric tube to low wall intermittent suction ?Continue n.p.o. with IV fluid support ?Notify surgery of bowel movement or consistent flatus as well as any acute change in patient's clinical condition HPI Consult Data Date of Consult: 04/06/21 HPI Narrative HPI Narrative: HECTOR LAUREN, is a 80 M who presented to [facility] ER with complaints of nausea, vomiting, and abdominal pain that began around 3-4 AM on 04/05/2021. Patient describes generalized lethargy all last week but states his GI symptoms began rather acutely after a cinnamon roll early in the morning. He started with diffuse abdominal pain and thought that he may have to have a bowel movement. He was successful in passing a relatively normal, soft, nonbloody stool but also experienced vomiting of what is described as root beer in color. This morning he states that his nausea is better and confirms that he has been passing flatus since approximately 730 this morning but denies any bowel movements. He confirms that he had a similar presentation on 01/29/2020 that resolved with conservative management. He also details a history of bronchitis which was diagnosed the first week of February and while his respiratory symptoms improved his associated fatigue lingered. He lives alone and he denies any notes of sick contacts. All meals he ingested prior to this episode were well cooked by him. Patient's only surgical history was a cholecystectomy done laparoscopically in 2014. He states he had a colonoscopy within the last 10 years that was unremarkable and its findings. 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 [facility] Medical History (Updated 04/06/21 @ 02:01 by Candi Sahu) Arthritis Cancer DDD (degenerative disc disease) Depression GERD (gastroesophageal reflux disease) Gout Hernia History of left heart catheterization (LHC) (~07/23/04) Kidney disease Lymphoma Non-smoker Seizures Skin cancer TIA (transient ischemic attack) Home Medications cholecalciferol (vitamin D3) [Vitamin D3] 2,000 unit PO DAILY 06/06/15 [History Last Taken 04/03/21 08:00] aspirin 81 mg PO DAILY 11/07/16 [History Last Taken 04/03/21 08:00] levothyroxine 137 mcg PO QHS 11/11/16 [History Last Taken 04/03/21 22:00] folic acid 1 mg PO DAILY@0800 08/12/19 [History Last Taken 04/03/21 08:00] acetaminophen 1,000 mg PO Q8H PRN PRN tab 08/27/19 [Rx Last Taken Unknown] methotrexate sodium 10 mg PO MARTINEZ@0800,1600 tab 08/27/19 [Rx Last Taken 03/31/21 16:00] oxcarbazepine 300 mg PO BID 01/29/20 [History Last Taken 04/03/21 22:00] Allergy/AdvReac Type Severity Reaction Status Date / Time Iodinated Contrast Media Allergy Intermediate Rash Verified 04/05/21 14:13 [CONTRASTS] Family History Father Leukemia Surgical History H/O Spinal surgery History of carpal tunnel surgery History of cataract extraction History of cholecystectomy History of knee replacement History of thyroidectomy Social History (Updated 04/06/21 @ 01:[address] Daniella Sousa MD) household members: none Smoking Status: Never smoker alcohol intake: never substance use type: does not use Physical Exam Const alert, oriented x3 and no apparent distress General Appearance: cooperative HEENT normocephalic GI GI Narrative: Soft, nondistended, nontender. Patient with thin bilious output in nasogastric tube but no content within the tubing Lab / Micro Data Result Diagrams: 04/06/21 06:20 04/06/21 06:10 Labs: Laboratory Results - last 24 hr 04/05/21 14:17: WBC 16.1 H, RBC 4.83, Hgb 14.9, Hct 44.9, MCV 93.0, MCH 30.8, MCHC 33.2, RDW Std Deviation 45.6 H, RDW Coeff of Po 13.6, Plt Count 391, MPV 8.7, Immature Gran % (Auto) 0.400, Neut % (Auto) 87.2 H, Lymph % (Auto) 5.4 L, Brown % (Auto) 6.7, Eos % (Auto) 0.1, Baso % (Auto) 0.2, Absolute Neuts (auto) 14.0 H, Absolute Lymphs (auto) 0.87, Nucleated RBC % 0 04/05/21 14:17: Sodium 138, Potassium 4.1, Chloride 102, Carbon Dioxide 31.0, Anion Gap 5, BUN 19 H, Creatinine 1.49 H, Estim Creat Clear Calc 42.11, Est GFR (MDRD) Af Amer 58 L, Est GFR (MDRD) Non-Af 48 L, BUN/Creatinine Ratio 12.8, Glucose 162 H, Calcium 10.1 04/05/21 14:17: Phosphorus 4.2, Magnesium 2.3 04/06/21 06:10: Procalcitonin 0.12 H 04/06/21 06:10: Sodium 139, Potassium 4.1, Chloride 108 H, Carbon Dioxide 27.0, Anion Gap 4 L, BUN 25 H, Creatinine 1.31 H, Estim Creat Clear Calc 47.90, Est GFR (MDRD) Af Amer 68, Est GFR (MDRD) Non-Af 56 L, BUN/Creatinine Ratio 19.1, Glucose 117 H, Calcium 8.6, Total Bilirubin 0.70, AST 17, ALT 23, Alkaline Phosphatase 75, Total Protein 5.8 L, Albumin 2.9 L, Globulin 2.9, Albumin/Globulin Ratio 1.0 04/06/21 06:10: Hemoglobin A1c 5.5 04/06/21 06:20: WBC 9.2, RBC 3.84 L, Hgb 12.0 L, Hct 36.9 L, MCV 96.1 H, MCH 31.3, MCHC 32.5, RDW Std Deviation 48.3 H, RDW Coeff of Po 14.0, Plt Count 271, MPV 8.4, Immature Gran % (Auto) 0.300, Neut % (Auto) 76.8 H, Lymph % (Auto) 12.3 L, Brown % (Auto) 9.6, Eos % (Auto) 0.7, Baso % (Auto) 0.3, Absolute Neuts (auto) 7.1, Absolute Lymphs (auto) 1.13, Nucleated RBC % 0 Radiology Impression Acute Abdomen Series 04/05/21 19:05 IMPRESSION: No acute chest disease. No intestinal obstruction. Consider CT for further evaluation. Electronically Signed: Candice Rodgers MD at 19:50 EDT Tel , Service support , Abdomen CT 04/05/21 20:50 IMPRESSION: 1. Mid small bowel distention with decompressed distal ileum and passage of some oral contrast in the cecum suggestive of partial obstruction or inflammation and ileus. CT or radiographic follow-up recommended. 2. Large prostate. 3. Nonobstructive nephrolithiasis. Individualized dose optimization techniques were used for this CT. at 0009 Reported and signed by: Vic Contreras MD Electronically Signed: Vic Contreras MD at 0:08 EDT Tel , Service support , KUB X-Ray 04/06/21 01:00 IMPRESSION: Subdiaphragmatic enteric tube projecting in good position. at 0526 Reported and signed by: Vic Contreras MD Electronically Signed: Vic Contreras MD at 5:25 EDT Tel , Service support , KUB X-Ray 04/06/21 05:30 IMPRESSION: 1. Nasogastric tube coiled in the stomach. 2. No change in partial small bowel obstruction. Electronically Signed: Tuan Jonas MD at 8:29 EDT Tel , Service support , Charges/Coding Visit Charges Inpatient E&M: 95814 Init Hosp L2
--- NOTE | 2021-04-06 12:45 | CASEMGMT ---
RUBY KNAPP assessment: Face to Face with patient for initial transition planning/care coordination assessment. RUBY KNAPP introduced self and role at [facility], pt voices understanding and consents to assessment. Pt is sitting up in bed in no distress. Pt is A/Ox4 and answers all questions appropriately. Pt's daughter is at bedside during assessment. Care providers, pharmacy, and demographics verified. Presentation: Pt c/o weakness, N/V Admitting dx: Partial SBO, N/V PCP: Ron Specialists: Aditi, Arthritis; Leander, neuro in [place]; Prah, onc [facility] [place] Insurance: [employer] Prescription Benefit: [employer] Living Will/HPOA: Pt states has LW/HPOA and is aware that they are on file at [facility]. Pt states his daughter, Alda Ly, is HPOA. LNOK: Alda Ly, daughter/HPOA Living Arrangements: Pt states lives alone in farmhouse with stairs and states no concerns at home. Pt states is independent with ADL's. Transportation: Pt states drives self and states no transportation concerns. DME/HHC: Pt states has the following DME: quad cane, WW, W/C, raised toilet seat, grab bars, and shower chair. Pt states no need for any further DME. Pt states no hx of HHC but has been to [facility] IP rehab in the past. Pt states no concerns with going home at time of discharge. Pt is retired. Pt states does not smoke cigarettes or drink ETOH. Pt states no further concerns/needs. CM to follow for any further discharge planning/needs. Advised pt to ask for CM if any further questions/concerns/needs arise, voices understanding. Pt Goal: Home Plan: [place] RUBY KNAPP
[2021-04-06 14:08] VITALS: BP 108/69; PULSE 66; RESP 18; TEMP 36.5; O2SAT 98
--- NOTE | 2021-04-06 15:57 | PN.HOSP_ITS ---
Subjective Subjective Patient was seen and examined today, I talked with general surgery about his care, general surgery said it was okay to remove his NG tube and I removed it today, patient will have to have a stool before he is able to eat and be discharged. Objective Data Objective Data Vital Signs: Vital Signs Temp Pulse Resp BP Pulse Ox 97.7 F L 66 18 108/69 98 04/06/21 14:08 04/06/21 14:08 04/06/21 14:08 04/06/21 14:08 04/06/21 14:08 Oxygen Delivery Method Room Air Weight: 86.7 kg Body Mass Index (BMI) 26.6 Intake & Output: Intake and Output for Last 24 Hours 04/04/21 04/05/21 04/06/21 23:59 23:59 23:59 Intake Total 1000 / 1000 1290 / 1290 Output Total 250 / 250 Balance 1000 / 1000 1040 / 1040 Lab / Micro Data Result Diagrams: 04/06/21 06:20 04/06/21 06:10 Labs: Laboratory Results - last 24 hr 04/05/21 14:17: Phosphorus 4.2, Magnesium 2.3 04/06/21 06:10: Procalcitonin 0.12 H 04/06/21 06:10: Sodium 139, Potassium 4.1, Chloride 108 H, Carbon Dioxide 27.0, Anion Gap 4 L, BUN 25 H, Creatinine 1.31 H, Estim Creat Clear Calc 47.90, Est GFR (MDRD) Af Amer 68, Est GFR (MDRD) Non-Af 56 L, BUN/Creatinine Ratio 19.1, Glucose 117 H, Calcium 8.6, Total Bilirubin 0.70, AST 17, ALT 23, Alkaline Phosphatase 75, Total Protein 5.8 L, Albumin 2.9 L, Globulin 2.9, Albumin/Gl obulin Ratio 1.0 04/06/21 06:10: Hemoglobin A1c 5.5 04/06/21 06:20: WBC 9.2, RBC 3.84 L, Hgb 12.0 L, Hct 36.9 L, MCV 96.1 H, MCH 31.3, MCHC 32.5, RDW Std Deviation 48.3 H, RDW Coeff of Po 14.0, Plt Count 271, MPV 8.4, Immature Gran % (Auto) 0.300, Neut % (Auto) 76.8 H, Lymph % (Auto) 12.3 L, [place] % (Auto) 9.6, Eos % (Auto) 0.7, Baso % (Auto) 0.3, Absolute Neuts (auto) 7.1, Absolute Lymphs (auto) 1.13, Nucleated RBC % 0 Radiography Diagnostic Testing: Radiology Impression Acute Abdomen Series 04/05/21 19:05 IMPRESSION: No acute chest disease. No intestinal obstruction. Consider CT for further evaluation. Electronically Signed: Candice Rodgers MD at 19:50 EDT Tel , Service support , Abdomen CT 04/05/21 20:50 IMPRESSION: 1. Mid small bowel distention with decompressed distal ileum and passage of some oral contrast in the cecum suggestive of partial obstruction or inflammation and ileus. CT or radiographic follow-up recommended. 2. Large prostate. 3. Nonobstructive nephrolithiasis. Individualized dose optimization techniques were used for this CT. at 0009 Reported and signed by: Vic Contreras MD Electronically Signed: Vic Contreras MD at 0:08 EDT Tel , Service support , KUB X-Ray 04/06/21 01:00 IMPRESSION: Subdiaphragmatic enteric tube projecting in good position. at 0526 Reported and signed by: Vic Contreras MD Electronically Signed: Vic Contreras MD at 5:25 EDT Tel , Service support , KUB X-Ray 04/06/21 05:30 IMPRESSION: 1. Nasogastric tube coiled in the stomach. 2. No change in partial small bowel obstruction. Electronically Signed: Tuan Jonas MD at 8:29 EDT Tel , Service support , Physical Exam Const alert, oriented x3, no apparent distress and healthy appearing General Appearance: cooperative, well kempt and well developed Orientation / Consciousness: awake, oriented to person, oriented to place and oriented to time HEENT normocephalic, head/scalp atraumatic and moist oral mucous membranes Head and Scalp: normocephalic Eyes PERRL, EOMs intact bilaterally and conjunctivae normal Neck nuchal rigidity, supple, no JVD, thyroid normal and no carotid bruits General: trachea midline Resp normal respiratory effort, no retractions, no use of accessory muscles and clear to auscultation bilaterally Auscultation: Negative for rales, rhonchi or wheezes Cardio regular rate, regular rhythm, no rub and no gallops Cardio Narrative: There is a 2/6 systolic murmur noted at the left sternal border and apex GI soft to palpation, non-tender and non-distended Auscultation: hypoactive bowel sounds Extremity no clubbing, cyanosis or edema Skin no rashes or lesions noted General Skin Exam: no breakdown Neuro oriented x3, CN's II-XII intact bilaterally, no focal motor deficits and no sensory deficits noted Sensorium / Orientation: awake and alert Speech: speech normal Psych thought process normal and affect normal Assessment & Plan Assessment/Plan (1) Partial small bowel obstruction: PLAN: 1. Partial small bowel obstruction-patient will continue on ice chips until he has a stool, general surgery is following his case #2 atherosclerotic heart disease-stable #3 aortic stenosis-moderate #4 seizure disorder-patient is on Keppra #5 dehydration-patient will continue to get fluids, repeat BMP tomorrow Charges/Coding Visit Charges Inpatient E&M: 10932 Subs Hosp L2
[2021-04-06 20:32] VITALS: BP 120/70; PULSE 65; RESP 18; TEMP 36.3; O2SAT 96
[2021-04-07 03:07] VITALS: BP 111/67; PULSE 66; RESP 18; TEMP 36.8; O2SAT 97
[2021-04-07 07:56] VITALS: BP 111/65; PULSE 66; RESP 18; TEMP 36.7; O2SAT 94
[2021-04-07 07:56] LABS: Anion Gap 7 (5-15); BUN 20 mg/dL (7-18); BUN/Creat Ratio 19.6 RATIO (10-20); Calcium,Total 7.7 mg/dL (8.5-10.1); Chloride 109 mmol/L (98-107); Creatinine, Serum 1.02 mg/dL (0.70-1.30); EST Glomerular Filtration Rate 75 mL/min (>60); Est Glom Filt Rate - Afr Amer 90 mL/min (>60); Estimated Creatinine Clearance 42.73 ml/min; Glucose 96 mg/dL (74-106); Potassium 3.6 mmol/L (3.5-5.1); Sodium Level 141 mmol/L (136-145)
[2021-04-07] MEDS: 0.9% Normal Saline 1,000 ML 100 ML IV (08:00)
[2021-04-07] MEDS: 0.9% Saline Lock 10 ML Syringe IV (10:07)
[2021-04-07] MEDS: Famotidine 200 MG/20 ML MDV 20 MG in 0.9% Normal Saline (Pres. free 8 ML 300 MG IV (10:07)
--- NOTE | 2021-04-07 11:39 | PCM.DC ---
Discharge Instructions Diet Discharge Diet: No restrictions Activity Discharge Activity: Return to Normal Activity Weight Bearing Status: Full weight bearing Follow Up Care Test Results: Test results from this visit will be discussed in further detail at your follow-up appointment, if applicable. Discharge Plan Admission Admit Date/Time: 04/06/21 00:39 Primary Reason for Your Visit: small bowel obstruction Attending Provider: Darryl Barnett Primary Care Provider: Branden Velasquez Consulting Providers: Homero [facility] Discharge Orders/Prescriptions Prescriptions: Continued cholecalciferol (vitamin D3) [Vitamin D3] 1,000 UNIT tablet 2,000 unit PO DAILY RF: 0 aspirin 81 MG tablet,delayed release (DR/EC) 81 mg PO DAILY RF: 0 levothyroxine 137 MCG tablet 137 mcg PO QHS RF: 0 folic acid 1 MG tablet 1 mg PO DAILY@0800 RF: 0 acetaminophen 500 MG tablet 1,000 mg PO Q8H PRN PRN (Reason: Pain Score 1-10/10) RF: 0 methotrexate sodium 2.5 MG tablet 10 mg PO MARTINEZ@0800,1600 RF: 0 oxcarbazepine 300 MG tablet 300 mg PO BID RF: 0 Referrals / Follow Up: Branden Velasquez MD [Primary Care Provider] - Within 2 Weeks Disposition Disposition (needs filled in before D/C Order can be placed): Home, Self Care
--- NOTE | 2021-04-07 13:13 | PCM.PN.SRG ---
Subjective Subjective Patient was seen and examined during AM rounds. He reports that he is feeling much better. He reports tolerance of his full liquid diet yesterday with another bowel movement this morning. Objective Data Objective Data Vital Signs: Vital Signs Temp Pulse Resp BP Pulse Ox 98.1 F 66 18 111/65 94 04/07/21 07:56 04/07/21 07:56 04/07/21 07:56 04/07/21 07:56 04/07/21 07:56 Oxygen Delivery Method Room Air Weight: 200 lb 9.93 oz Body Mass Index (BMI) 26.6 Intake & Output: Intake and Output for Last 24 Hours 04/05/21 04/06/21 04/07/21 23:59 23:59 23:59 Intake Total 1000 / 1000 2630 / 2730 1620 / 1620 Output Total 450 / 450 Balance 1000 / 1000 2180 / 2280 1620 / 1620 Lab / Micro Data Result Diagrams: 04/06/21 06:20 04/07/21 06:05 Labs: Laboratory Results - last 24 hr 04/07/21 06:05: Sodium 141, Potassium 3.6, Chloride 109 H, Carbon Dioxide 25.0, Anion Gap 7, BUN 20 H, Creatinine 1.02, Estim Creat Clear Calc 42.73, Est GFR (MDRD) Af Amer 90, Est GFR (MDRD) Non-Af 75, BUN/Creatinine Ratio 19.6, Glucose 96, Calcium 7.7 L Physical Exam Const oriented x3 and no apparent distress GI GI Narrative: Soft, nondistended, nontender Assessment & Plan Assessment/Plan (1) Small bowel obstruction, partial: PLAN: This is an 80-year-old gentleman with complex medical history but minimal past abdominal surgical history who presented with evidence of at least a partial small bowel obstruction versus ileus. This appears to have resolved spontaneously as patient has experienced return of bowel function. He is tolerating a full liquid diet. Therefore recommend: ?Advance to a soft, low residue diet. If patient tolerates this he is eligible for discharge home. Recommend continuation of this diet for 1 week post hospitalization. No need to follow-up with surgery unless patient desires Charges/Coding Visit Charges Inpatient E&M: 42828 Subs Hosp L2
[2021-04-07 13:52] VITALS: BP 111/66; PULSE 73; RESP 18; TEMP 36.9; O2SAT 98
--- NOTE | 2021-04-07 18:29 | PCM.DC.SUM ---
Providers Date of Admission: 04/06/21 Date of Discharge: 04/07/21 Primary Care Physician: Dr. Branden Velasquez MD Consultations 04/06/21 01:45 Consult: General Surgery Routine Consulting Provider: Homero Viera Reason for Consult: partial SBO EMERGENT Consult: No MD Notified: Yes Date Notified: 04/06/21 Time Notified: 00:42 Method of Notification: cortext Reason For Visit: PARTIAL SBO, INTRACTABLE N/V Diagnosis Discharge Diagnosis (1) Small bowel obstruction, partial: Status: Acute Code(s): K56.600 - Partial intestinal obstruction, unspecified as to cause Plan: Final diagnosis #1 partial small bowel obstruction-resolved #2 atherosclerotic heart disease #3 moderate aortic stenosis #4 seizure disorder #5 dehydration Medications at Discharge Home Medications cholecalciferol (vitamin D3) [Vitamin D3] 2,000 unit PO DAILY 06/06/15 aspirin 81 mg PO DAILY 11/07/16 levothyroxine 137 mcg PO QHS 11/11/16 folic acid 1 mg PO DAILY@0800 08/12/19 acetaminophen 1,000 mg PO Q8H PRN PRN tab 08/27/19 methotrexate sodium 10 mg PO MARTINEZ@0800,1600 tab 08/27/19 oxcarbazepine 300 mg PO BID 01/29/20 Hospital Course Operations None Procedures None Summary of Care Provided Minutes Spent on Discharge: 32 Hospital Course: This 80-year-old white male was seen in the emergency room with complaints of nausea and vomiting, work-up in the emergency room included a CT of the abdomen with p.o. contrast, labs revealed an elevated white blood cell count with an elevated creatinine. CT scan showed a mid small bowel distention with decompressed distal ileum suggestive of a partial obstruction or inflammation. Patient was admitted to [place] [address], he was given IV fluids, he was seen in consultation by general surgery, and an NG tube was placed. Later in the day on 04/06/2021, patient's abdomen appeared improved on examination, and his NG tube was removed and he was placed on clear liquids. He was reevaluated on 04/07/2021 and noted to be stable for discharge, patient had several stools that day. On 04/07/2021, patient was seen and examined: On examination he appeared in good health and spirits. Vital signs as documented. Skin warm and dry and without overt rashes. Neck without JVD, neck was supple, trachea midline, thyroid was normal. Lungs clear bilaterally, normal air movement was noted. Heart exam notable for regular rhythm, normal sounds-there was noted to be a 3/6 systolic murmur noted at the left sternal border and apex, no rubs or gallops were noted. Abdomen unremarkable and without evidence of organomegaly, masses, or abdominal aortic enlargement. Bowel sounds are present, abdomen is not distended. Extremities nonedematous, no cyanosis was noted, no clubbing was noted. Neuro: Cranial nerves II through XII are grossly intact, no focal motor deficits were noted, sensation to light touch and pinprick intact, motor exam 5/5 throughout. Psych: Patient is alert and oriented x3, he does not appear anxious or depressed, he does not appear agitated. Patient appears stable for discharge home on 04/07/2021. Patient appears to be stable for discharge on 04/07/2021. Weight / BMI Weight Weight: 91 kg Body Mass Index (BMI) 26.6 ABG / Lab / Microbiology Data Result Diagrams: 04/06/21 06:20 04/07/21 06:05 Laboratory: Laboratory Results - last 24 hr 04/07/21 06:05: Sodium 141, Potassium 3.6, Chloride 109 H, Carbon Dioxide 25.0, Anion Gap 7, BUN 20 H, Creatinine 1.02, Estim Creat Clear Calc 42.73, Est GFR (MDRD) Af Amer 90, Est GFR (MDRD) Non-Af 75, BUN/Creatinine Ratio 19.6, Glucose 96, Calcium 7.7 L D/C Instructions Discharge Diet: No restrictions Weight Bearing Status: Full weight bearing Meaningful Use Info Meaningful Use Diagnoses (Choose all that apply): None applicable Discharge Plan Admission Admit Date/Time: 04/06/21 00:39 Primary Reason for Your Visit: small bowel obstruction Attending Provider: Darryl Barnett Primary Care Provider: Branden Velasquez Consulting Providers: Homero Viera Discharge Orders/Prescriptions Prescriptions: Continued cholecalciferol (vitamin D3) [Vitamin D3] 1,000 UNIT tablet 2,000 unit PO DAILY RF: 0 aspirin 81 MG tablet,delayed release (DR/EC) 81 mg PO DAILY RF: 0 levothyroxine 137 MCG tablet 137 mcg PO QHS RF: 0 folic acid 1 MG tablet 1 mg PO DAILY@0800 RF: 0 acetaminophen 500 MG tablet 1,000 mg PO Q8H PRN PRN (Reason: Pain Score 1-10/10) RF: 0 methotrexate sodium 2.5 MG tablet 10 mg PO MARTINEZ@0800,1600 RF: 0 oxcarbazepine 300 MG tablet 300 mg PO BID RF: 0 Referrals / Follow Up: Branden Velasquez MD [Primary Care Provider] - Within 2 Weeks Disposition Disposition (needs filled in before D/C Order can be placed): Home, Self Care Charges/Coding Visit Charges Inpatient E&M: 54837 Disch Hosp
== END 2021-04-07 14:59 | disposition home or self-care (01) | DRG 390 ==
LOC: ED 04-06 00:22 → MS3 04-06 00:51
PROVIDERS: Admitting Provider Family Medicine; Emergency Provider Emergency Medicine; PCP Family Medicine; Visit Provider Internal Medicine
DX: K56.600 Partial intestinal obstruction, unspecified as to cause (principal); E86.0 Dehydration; G40.909 Epilepsy, unspecified, not intractable, without status epilepticus; I35.0 Nonrheumatic aortic (valve) stenosis; I48.0 Paroxysmal atrial fibrillation; I25.10 Atherosclerotic heart disease of native coronary artery without angina pectoris; E89.0 Postprocedural hypothyroidism; M06.9 Rheumatoid arthritis, unspecified; R73.9 Hyperglycemia, unspecified; R29.6 Repeated falls; M19.90 Unspecified osteoarthritis, unspecified site; M10.9 Gout, unspecified; K21.9 Gastro-esophageal reflux disease without esophagitis; M54.9 Dorsalgia, unspecified; G89.29 Other chronic pain; F32.9 Major depressive disorder, single episode, unspecified; Z79.82 Long term (current) use of aspirin; Z79.890 Hormone replacement therapy; Z79.899 Other long term (current) drug therapy; Z91.041 Radiographic dye allergy status; Z85.828 Personal history of other malignant neoplasm of skin; Z85.72 Personal history of non-Hodgkin lymphomas
CPT/HCPCS: 74018; 74022; 74176; 80048; 80053; 83036; 83735; 84100; 84145; 85025; 97802; 99251; 99285; J7030; A4216; G0463; J2405; J3490

== ENCOUNTER → 2021-05-20 11:21 | Outpatient (CLI) | payer MEDICARE, SELFPAY ==
[2021-05-20 15:40] LABS: Albumin, Serum 3.6 g/dL (3.2-5.0); BUN 15 mg/dL (7-18); BUN/Creat Ratio 14.2 RATIO (10-20); Calcium,Total 9.1 mg/dL (8.5-10.1); Chloride 106 mmol/L (98-107); Creatinine, Serum 1.06 mg/dL (0.70-1.30); EST Glomerular Filtration Rate 71 mL/min (>60); Est Glom Filt Rate - Afr Amer 86 mL/min (>60); Glucose 92 mg/dL (74-106); Phosphorus 3.1 mg/dL (2.5-4.9); Potassium 4.4 mmol/L (3.5-5.1); Sodium Level 138 mmol/L (136-145); Thyroid Stim Hormone (TSH) 0.04 uIU/mL (0.358-3.74)
== END ==
PROVIDERS: PCP Family Medicine
DX: E03.9 Hypothyroidism, unspecified (principal); R94.4 Abnormal results of kidney function studies
CPT/HCPCS: 36415; 80069; 84443

== ENCOUNTER 2021-10-11 10:27 | Outpatient (CLI) | payer MEDICARE, SELFPAY ==
--- NOTE | 2021-10-11 10:31 | ECHOD_ITS ---
Reason For Study: Murmur Procedure This was a 2D Doppler, Color Flow transthoracic echocardiogram. Technically difficult study, limited parasternal views/window. The study was technically difficult. Exam performed in department. Left Ventricle Normal LV size. Apical false tendon noted. Left ventricular systolic function is normal. The estimated ejection fraction is 65 %. No evidence for diastolic dysfunction. No regional wall motion abnormalities noted. Right Ventricle Normal RV size. Normal systolic function. Atria Normal left atrium. Normal right atrium. No doppler evidence for ASD. Mitral Valve There is mild mitral annular calcification. Extension of the mitral annular calcification onto the base of the posterior mitral valve leaflet. Mild (1+) mitral valve insufficiency. Tricuspid Valve Normal tricuspid valve. Trivial tricuspid valve insufficiency. Right ventricular systolic pressure estimated to be 21 mmHg. Aortic Valve Based upon the 2D echocardiographic images obtained with respect to the aortic valve there appears to be diffuse thickening, calcification, and partial restriction with spectral Doppler information appearing compatible with moderate aortic valve stenosis. Pulmonic Valve The pulmonic valve is not well visualized. Great Vessels The aortic root is not well visualized. Pericardium/Pleural No pericardial effusion. MMode/2D Measurements & Calculations LVIDd: 4.3 cm IVSd: 0.83 cm LVOT diam: 2.0 cm LVIDs: 2.4 cm LVPWd: 0.78 cm LVOT area: 3.2 cm2 RVDd: 3.5 cm FS: 43.1 % LA dimension: 2.8 cm LAV(MOD-sp4): 18.9 ml LA A4 area: 9.0 cm2 RA A4 area: 8.8 cm2 Time Measurements MV dec time: 0.36 sec Doppler Measurements & Calculations MV E max rafa: 82.6 cm/sec Lat Peak E' Rafa: 8.4 cm/sec Med Peak E' Rafa: 6.8 cm/sec MV A max rafa: 107.9 cm/sec E/E' lat: 9.8 E/E' med: 12.1 MV E/A: 0.77 MV V2 max: 116.5 cm/sec MV P1/2t max rafa: 69.3 cm/sec Ao V2 max: 222.3 cm/sec MV max P.4 mmHg MV P1/2t: 115.1 msec Ao max P.8 mmHg MV V2 mean: 59.6 cm/sec MV dec slope: 176.5 cm/sec2 Ao V2 mean: 160.1 cm/sec MV mean P.7 mmHg Ao mean P.6 mmHg MV V2 VTI: 30.0 cm MVA(P1/2t): 1.9 cm2 Ao V2 VTI: 47.7 cm MVA(VTI): 1.7 cm2 DORA(I,D): 1.1 cm2 DORA(V,D): 1.1 cm2 LV V1 max: 77.9 cm/sec SV(LVOT): 51.3 ml TR max rafa: 213.2 cm/sec LV V1 max P.4 mmHg TR max P.2 mmHg LV V1 mean P.2 mmHg LV V1 mean: 51.1 cm/sec LV V1 VTI: 16.1 cm ECHO/Echo Complete Interpretation Summary The study was technically difficult. Left ventricular systolic function is normal. The estimated ejection fraction is 65 %. Apical false tendon noted. There is mild mitral annular calcification. Extension of the mitral annular calcification onto the base of the posterior mi tral valve leaflet. Mild (1+) mitral valve insufficiency. Trivial tricuspid valve insufficiency. Based upon the 2D echocardiographic images obtained with respect to the aortic valve there appears to be diffuse thickening, calcification, and partial restriction with spectral Doppler information appearing compatible with moderate aortic valve stenosis. Right ventricular systolic pressure estimated to be 21 mmHg. No evidence for diastolic dysfunction. Ordering Physician: Branden Velasquez Referring Physician: Branden Velasquez Performed By: Chandu Interiano RCS
== END 2021-10-11 23:59 | disposition home or self-care (01) ==
LOC: CVS 10:30
PROVIDERS: PCP Family Medicine; Referring Provider Family Medicine; Visit Provider Family Medicine
DX: R01.1 Cardiac murmur, unspecified (principal)
CPT/HCPCS: 93306

== ENCOUNTER → 2022-10-09 | Outpatient (CLI) | payer MEDICARE, SELFPAY ==
--- NOTE | 2022-10-09 10:41 | ECHOD_ITS ---
Reason For Study: STENOSIS Procedure This was a 2D Doppler, Color Flow transthoracic echocardiogram. The study was technically difficult. Exam performed in department. Left Ventricle Normal LV size. The estimated ejection fraction is 65 %. Unable to assess diastolic dysfunction. No regional wall motion abnormalities noted. Right Ventricle Normal RV size. Normal systolic function. Atria Normal left atrium. Normal right atrium. No doppler evidence for ASD. Mitral Valve There is moderate mitral annular calcification. There is no mitral valve stenosis. Trivial mitral valve insufficiency. Tricuspid Valve There is no tricuspid stenosis. Trivial tricuspid valve insufficiency. Unable to estimate RV systolic pressure due to insufficient tricuspid regurgitant envelope. Aortic Valve Moderate diffuse aortic valve thickening. Moderate aortic stenosis. No aortic valve insufficiency. Pulmonic Valve There is no pulmonic valvular stenosis. No pulmonic valve insufficiency. Great Vessels Normal aortic root. Pericardium/Pleural No pericardial effusion. MMode/2D Measurements & Calculations LVIDd: 4.4 cm IVSd: 0.86 cm LVOT diam: 2.0 cm LVIDs: 3.0 cm LVPWd: 0.90 cm LVOT area: 3.3 cm2 RVDd: 3.2 cm FS: 31.0 % Ao root diam: 3.1 cm LAV(MOD-bp): 37.4 ml LVAd ap4: 27.5 cm2 LAV(MOD-bp) Indexed: 17.4 ml/m2 LVLd ap4: 8.2 cm LAV(MOD-sp2): 32.3 ml EDV(MOD-sp4): 74.4 ml LAV(MOD-sp4): 34.3 ml EDV(sp4-el): 77.9 ml LVAs ap4: 15.2 cm2 LVLs ap4: 6.8 cm ESV(MOD-sp4): 28.9 ml ESV(sp4-el): 29.0 ml EF(MOD-sp4): 61.2 % EF(sp4-el): 62.7 % SV(MOD-sp4): 45.5 ml SV(sp4-el): 48.8 ml LA A4 area: 13.5 cm2 LA dimension(2D): 3.4 cm RA A4 area: 11.7 cm2 Time Measurements MV dec time: 0.32 sec Doppler Measurements & Calculations MV E max rafa: 82.9 cm/sec Lat Peak E' Rafa: 7.6 cm/sec Med Peak E' Rafa: 8.0 cm/sec MV A max rafa: 120.9 cm/sec E/E' lat: 10.9 E/E' med: 10.4 MV E/A: 0.69 Ao V2 max: 324.0 cm/sec LV V1 max: 102.5 cm/sec SV(LVOT): 74.5 ml Ao max P.1 mmHg LV V1 max P.2 mmHg Ao V2 mean: 242.1 cm/sec LV V1 mean P.4 mmHg Ao mean P.0 mmHg LV V1 mean: 71.8 cm/sec Ao V2 VTI: 75.0 cm LV V1 VTI: 22.9 cm AV (velocity ratio): 0.31 DORA(I,D): 0.99 cm2 DORA(V,D): 1.0 cm2 TR max rafa: 285.0 cm/sec TR max P.5 mmHg ECHO/Echo Complete Interpretation Summary The estimated ejection fraction is 65 %. Unable to assess diastolic dysfunction. Trivial mitral valve insufficiency. Moderate aortic stenosis. Ordering Physician: Branden Velasquez Referring Physician: Branden Velasquez Performed By: Meena Solitario RDCS
== END | disposition home or self-care (01) ==
PROVIDERS: PCP Family Medicine; Referring Provider Family Medicine; Visit Provider Family Medicine
DX: I35.0 Nonrheumatic aortic (valve) stenosis (principal)
CPT/HCPCS: 93306

== ENCOUNTER → 2022-11-17 | Outpatient (CLI) | payer MEDICARE, SELFPAY ==
--- NOTE | 2022-11-17 13:00 | RAD_ITS ---
EXAM: XR LEFT KNEE COMPLETE, 4 OR MORE VIEWS CLINICAL INDICATION: None provided. L knee pain TECHNIQUE: Four or more views of the left knee. COMPARISON: No relevant prior studies available. FINDINGS: BONES/JOINTS: There are soft tissue calcifications anterior to the patella. There are old healed fractures of the proximal fibula. Preservation of the joint space. No sclerotic or destructive changes observed. SOFT TISSUES: Unremarkable. No soft tissue swelling or gas. No radiopaque foreign body. RAD/Knee 4 or More Views IMPRESSION: Old healed proximal fibular fracture. There are no acute osseous abnormalities. There are soft tissue calcifications seen anterior to the patella. Electronically Signed: Cristian Emanuel MD at 19:56 EDT ,
== END | disposition home or self-care (01) ==
LOC: MTRAD 12:55
PROVIDERS: PCP Family Medicine; Referring Provider Family Medicine; Visit Provider Family Medicine
DX: M25.562 Pain in left knee (principal)
CPT/HCPCS: 73564

== ENCOUNTER → 2023-05-11 | Outpatient (CLI) | payer MEDICARE, SELFPAY ==
[2023-05-11 12:14] LABS: Absolute Lymphocyte Count 1.09 X10^3/uL (0.83-4.51); Absolute Neutrophil Count 6.3 X10^3/uL (2.0-7.7); Basophil# 0.07 X10^3/uL; Basophil% 0.9 % (0-1); Eosinophil# 0.25 X10^3/uL; Hematocrit 37.8 % (40-54); Hemoglobin 12.8 g/dL (13.0-16.5); Lymphocyte # 1.09 X10^3/ul (0.83-4.51); Lymphocyte % 13.3 % (19-41); Mean Corp Hgb Conc 33.9 g/dL (32-36); Mean Corpuscular Hgb 31.8 pg (27.0-32.0); Mean Corpuscular Volume 93.8 fL (80-94); Mean Platelet Vol. 8.2 fl (6.2-12.0); Monocyte% 6.1 % (0-10); NRBC Flagged by Analyzer 0 % (0-5); Neutrophil # 6.27 X10^3/uL (2.7-7.7); Neutrophil % 76.3 % (47-70); Platelet Count 217 K/mm3 (150-450); RBC Distribution Width CV 13.5 % (11.6-14.6); RBC Distribution Width SD 46.2 fl (35.1-43.9); Red Blood Count 4.03 M/mm3 (4.6-6.2); White Blood Count 8.2 K/mm3 (4.4-11.0)
[2023-05-11 12:46] LABS: ALB/GLOB Ratio 1.2 RATIO (0.9-2.4); AST(SGOT) 28 U/L (15-37); Alanine Aminotransfer ALT/SGPT 32 U/L (16-61); Albumin, Serum 3.6 g/dL (3.2-5.0); Alkaline Phosphatase 89 U/L (45-117); Anion Gap 6 (5-15); BUN 21 mg/dL (7-18); BUN/Creat Ratio 14.8 RATIO (10-20); Calcium,Total 8.7 mg/dL (8.5-10.1); Chloride 106 mmol/L (98-107); Creatinine, Serum 1.42 mg/dL (0.70-1.30); EST Glomerular Filtration Rate 51 mL/min (>60); Est Glom Filt Rate - Afr Amer 61 mL/min (>60); Glucose 109 mg/dL (74-106); LDH 255 U/L (87-241); Potassium 4.3 mmol/L (3.5-5.1); Protein, Total 6.6 g/dL (6.4-8.2); Sodium Level 138 mmol/L (136-145)
[2023-05-11 20:02] LABS: Xtra Tube EP Lab EXTRA TUBE
[2023-05-13 16:11] LABS: T4 Free Direct 1.04 ng/dL (0.76-1.46); Thyroid Stim Hormone (TSH) 0.27 uIU/mL (0.358-3.74)
== END | disposition home or self-care (01) ==
LOC: LAB 11:56
PROVIDERS: PCP Family Medicine; Referring Provider Internal Medicine Medical Oncology; Visit Provider Internal Medicine Medical Oncology
DX: Z85.850 Personal history of malignant neoplasm of thyroid (principal); Z85.72 Personal history of non-Hodgkin lymphomas
CPT/HCPCS: 36415; 80053; 83615; 84439; 84443; 85025

== ENCOUNTER → 2023-06-03 | Outpatient (CLI) | payer MEDICARE, SELFPAY ==
[2023-06-03 12:50] LABS: Absolute Lymphocyte Count 1.28 X10^3/uL (0.83-4.51); Absolute Neutrophil Count 4.9 X10^3/uL (2.0-7.7); Basophil# 0.08 X10^3/uL; Basophil% 1.2 % (0-1); Eosinophil# 0.22 X10^3/uL; Eosinophils% 3.2 % (0-5); Hematocrit 38.7 % (40-54); Hemoglobin 12.6 g/dL (13.0-16.5); Lymphocyte # 1.28 X10^3/ul (0.83-4.51); Lymphocyte % 18.7 % (19-41); Mean Corp Hgb Conc 32.6 g/dL (32-36); Mean Corpuscular Hgb 31.1 pg (27.0-32.0); Mean Corpuscular Volume 95.6 fL (80-94); Mean Platelet Vol. 8.5 fl (6.2-12.0); Monocyte# 0.35 X10^3/uL; Monocyte% 5.1 % (0-10); NRBC Flagged by Analyzer 0 % (0-5); Neutrophil # 4.88 X10^3/uL (2.7-7.7); Neutrophil % 71.5 % (47-70); Platelet Count 301 K/mm3 (150-450); RBC Distribution Width CV 13.2 % (11.6-14.6); RBC Distribution Width SD 45.8 fl (35.1-43.9); RET-HE 35.2 pg (30-35); Red Blood Count 4.05 M/mm3 (4.6-6.2); Reticulocyte Count 0.81 % (0.5-1.5); White Blood Count 6.8 K/mm3 (4.4-11.0)
[2023-06-03 12:52] LABS: Vitamin B12 450 pg/mL (211-911)
[2023-06-03 13:16] LABS: AST(SGOT) 21 U/L (15-37); Alanine Aminotransfer ALT/SGPT 25 U/L (16-61); Albumin, Serum 3.4 g/dL (3.2-5.0); Alkaline Phosphatase 86 U/L (45-117); Anion Gap 3 (5-15); BUN 21 mg/dL (7-18); BUN/Creat Ratio 19.4 RATIO (10-20); Calcium,Total 8.8 mg/dL (8.5-10.1); Chloride 105 mmol/L (98-107); Cholesterol 132 mg/dL (200); Creatinine, Serum 1.08 mg/dL (0.70-1.30); EST Glomerular Filtration Rate 70 mL/min (>60); Est Glom Filt Rate - Afr Amer 84 mL/min (>60); Ferritin 160 ng/mL (26-388); Globulin 3.3 g/dL (2.2-4.2); Glucose 102 mg/dL (74-106); High Density Lipoprotein 30 mg/dL; Iron 54 ug/dL (65-175); Iron Binding Capacity,Total 229 ug/dL (250-450); Potassium 4.1 mmol/L (3.5-5.1); Protein, Total 6.7 g/dL (6.4-8.2); Sodium Level 136 mmol/L (136-145); T4 Free Direct 1.14 ng/dL (0.76-1.46); Thyroid Stim Hormone (TSH) 0.47 uIU/mL (0.358-3.74); Triglycerides 60 mg/dL; Very Low Density Lipoprotein 12 mg/dL (5-40)
== END | disposition home or self-care (01) ==
LOC: MTLAB 10:29
PROVIDERS: PCP Family Medicine
DX: D64.9 Anemia, unspecified (principal); M35.3 Polymyalgia rheumatica; E55.9 Vitamin D deficiency, unspecified; G45.9 Transient cerebral ischemic attack, unspecified; E03.9 Hypothyroidism, unspecified
CPT/HCPCS: 36415; 80053; 80061; 82306; 82607; 82728; 83540; 83550; 84439; 84443; 85025; 85027; 85045

== ENCOUNTER → 2023-09-29 | Outpatient (CLI) | payer MEDICARE, SELFPAY ==
[2023-09-29 11:55] LABS: Absolute Lymphocyte Count 1.55 X10^3/uL (0.83-4.51); Absolute Neutrophil Count 4.1 X10^3/uL (2.0-7.7); Basophil# 0.08 X10^3/uL; Basophil% 1.3 % (0-1); Eosinophil# 0.29 X10^3/uL; Eosinophils% 4.6 % (0-5); Hematocrit 40.8 % (40-54); Hemoglobin 13.7 g/dL (13.0-16.5); Lymphocyte # 1.55 X10^3/ul (0.83-4.51); Lymphocyte % 24.4 % (19-41); Mean Corp Hgb Conc 33.6 g/dL (32-36); Mean Corpuscular Hgb 31.3 pg (27.0-32.0); Mean Corpuscular Volume 93.2 fL (80-94); Monocyte# 0.35 X10^3/uL; Monocyte% 5.5 % (0-10); NRBC Flagged by Analyzer 0 % (0-5); Neutrophil # 4.08 X10^3/uL (2.7-7.7); Platelet Count 218 K/mm3 (150-450); RBC Distribution Width CV 13.7 % (11.6-14.6); RBC Distribution Width SD 46.5 fl (35.1-43.9); Red Blood Count 4.38 M/mm3 (4.6-6.2); White Blood Count 6.4 K/mm3 (4.4-11.0)
[2023-09-29 12:37] LABS: Ferritin 137 ng/mL (26-388); Iron 151 ug/dL (65-175); Iron Binding Capacity,Total 244 ug/dL (250-450)
== END | disposition home or self-care (01) ==
LOC: MFPLAB 09:58
PROVIDERS: PCP Family Medicine; Visit Provider Family Medicine
DX: D64.9 Anemia, unspecified (principal)
CPT/HCPCS: 36415; 82728; 83540; 83550; 85025

== ENCOUNTER → 2023-11-03 | Outpatient (CLI) | payer MEDICARE, SELFPAY ==
--- NOTE | 2023-11-03 13:42 | ECHOD_ITS ---
Reason For Study: AORTIC STENOSIS Procedure This was a 2D Doppler, Color Flow transthoracic echocardiogram. The study was technically difficult. Exam performed in department. Left Ventricle Normal LV size. The estimated ejection fraction is 60 %. Unable to assess diastolic dysfunction. No regional wall motion abnormalities noted. Right Ventricle Normal right ventricle. Normal systolic function. Atria Normal left atrium. Normal right atrium. No doppler evidence for ASD. Mitral Valve There is moderate mitral annular calcification. There is no mitral valve stenosis. Trivial mitral valve insufficiency. Tricuspid Valve There is no tricuspid stenosis. Trivial tricuspid valve insufficiency. Unable to estimate RV systolic pressure due to insufficient tricuspid regurgitant envelope. Aortic Valve Moderate diffuse aortic valve thickening. Moderate aortic stenosis. No aortic valve insufficiency. Pulmonic Valve There is no pulmonic valvular stenosis. No pulmonic valve insufficiency. Great Vessels Normal aortic root. Pericardium/Pleural No pericardial effusion. MMode/2D Measurements & Calculations RVDd: 3.5 cm LVOT diam: 2.0 cm Ao root diam: 3.5 cm LVOT area: 3.2 cm2 LAV(MOD-bp): 50.9 ml LVAd ap4: 20.5 cm2 LVAd ap2: 19.8 cm2 LAV(MOD-bp) Indexed: 23.9 ml/m2 LVLd ap4: 7.6 cm LVLd ap2: 7.2 cm LAV(MOD-sp2): 69.0 ml EDV(MOD-sp4): 46.2 ml EDV(MOD-sp2): 46.8 ml LAV(MOD-sp4): 30.8 ml EDV(sp4-el): 46.8 ml EDV(sp2-el): 46.3 ml LVAs ap4: 12.2 cm2 LVAs ap2: 9.6 cm2 LVLs ap4: 6.3 cm LVLs ap2: 5.7 cm ESV(MOD-sp4): 20.3 ml ESV(MOD-sp2): 15.0 ml ESV(sp4-el): 20.1 ml ESV(sp2-el): 13.8 ml EF(MOD-sp4): 56.1 % EF(MOD-sp2): 67.9 % EF(sp4-el): 57.0 % SV(MOD-sp4): 25.9 ml SV(MOD-sp2): 31.8 ml SV(sp4-el): 26.6 ml LA A4 area: 12.7 cm2 LA dimension(2D): 3.3 cm RA A4 area: 11.9 cm2 TAPSE: 1.9 cm Time Measurements MV dec time: 0.36 sec Doppler Measurements & Calculations MV E max rafa: 88.7 cm/sec Lat Peak E' Rafa: 8.7 cm/sec Med Peak E' Rafa: 8.1 cm/sec MV A max rafa: 115.9 cm/sec E/E' lat: 10.2 E/E' med: 11.0 MV E/A: 0.77 Ao V2 max: 322.6 cm/sec LV V1 max: 109.7 cm/sec MV dec slope: 246.2 cm/sec2 Ao max P.7 mmHg LV V1 max P.8 mmHg Ao V2 mean: 237.7 cm/sec LV V1 mean P.6 mmHg Ao mean P.9 mmHg LV V1 mean: 74.9 cm/sec Ao V2 VTI: 73.0 cm LV V1 VTI: 25.7 cm AV (velocity ratio): 0.35 DORA(I,D): 1.1 cm2 DORA(V,D): 1.1 cm2 SV(LVOT): 83.0 ml TR max rafa: 230.2 cm/sec TR max P.2 mmHg ECHO/Echo Complete Interpretation Summary The estimated ejection fraction is 60 %. Unable to assess diastolic dysfunction. Trivial mitral valve insufficiency. Moderate aortic stenosis. Ordering Physician: Tyson Velasquez Referring Physician: Tyson Velasquez Performed By: Lucy Beasley RDCS
== END | disposition home or self-care (01) ==
LOC: CVS 13:39
PROVIDERS: PCP Family Medicine; Referring Provider Family Medicine; Visit Provider Family Medicine
DX: I35.0 Nonrheumatic aortic (valve) stenosis (principal)
CPT/HCPCS: 93306

== ENCOUNTER → 2023-12-04 | Outpatient (CLI) | payer MEDICARE, SELFPAY ==
--- NOTE | 2023-12-04 14:43 | RAD_ITS ---
STUDY: X-RAY - LEFT KNEE REASON FOR EXAM: Male, 83 years old. Left knee injury. TECHNIQUE: 4 views of the left knee. COMPARISON: None. FINDINGS: Normal visualized distal femur. Normal visualized proximal tibia and fibula. Normal proximal tibiofibular articulation. There is no demonstrated fracture. Normal medial femorotibial compartment. There is mild joint space narrowing in the lateral femorotibial compartment. There is mild degenerative arthrosis of the patellofemoral articulation. There are prepatellar soft tissue swelling with benign calcifications in the anterior aspect of the knee. RAD/Knee 4 or More Views IMPRESSION: Prepatellar soft tissue swelling with benign calcifications in the anterior aspect of the knee. 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 Electronically Signed: Martir Sullivan MD at 15:54 EDT ,
== END | disposition home or self-care (01) ==
LOC: MTRAD 14:43
PROVIDERS: PCP Family Medicine; Referring Provider Family Medicine; Visit Provider Family Medicine
DX: M25.562 Pain in left knee (principal)
CPT/HCPCS: 73564

== ENCOUNTER → 2024-04-26 | Outpatient (CLI) | payer MEDICARE, SELFPAY ==
[2024-04-26 13:35] LABS: Calcium,Total 9.2 mg/dL (8.5-10.1); Creatinine, Serum 0.94 mg/dL (0.70-1.30); EST Glomerular Filtration Rate 82 mL/min (>60); Est Glom Filt Rate - Afr Amer 99 mL/min (>60)
== END | disposition home or self-care (01) ==
LOC: MFPLAB 09:23
PROVIDERS: PCP Family Medicine
DX: M05.79 Rheumatoid arthritis with rheumatoid factor of multiple sites without organ or systems involvement (principal)
CPT/HCPCS: 36415; 82306; 82310; 82565